=== PATIENT | female | born 1945 | race Caucasian/White ===

== ENCOUNTER 2017-05-03 10:27 | Inpatient (IN) ==
--- NOTE | 2017-05-03 10:54 | Emergency Department Note ---
Disposition Clinical Impression: Shortness of breath Disposition: Still a Patient Condition: Fair Referrals: Teo Kim MD [Primary Care Provider] - Forms: ED Satisfaction Letter Time of Disposition: 10:54 SOB HPI - General Chief Complaint: ED Shortness of Breath/Dyspnea Stated Complaint: THOMAS Time Seen by Provider: 05/03/17 10:50 Source: patient, EMS Limitations: no limitations - History of Present Illness Nontoxic appearing 71-year-old female presents for evaluation of shortness of breath and a productive cough that began one week ago. The patient states the symptoms became acutely more severe just prior to her arrival. She complains of a cough that is productive of a yellow sputum. She denies any fever, chills , nausea, vomiting, diarrhea, abdominal pain, chest pain, or hemoptysis. She denies any diaphoresis. Pt Subjective Complaint: shortness of breath, cough Onset (ago): week(s) (One week) Severity: moderate Consistency/Duration: gradually worsening Improves with: nothing Worsens with: nothing Known history of: congestive heart failure Associated symptoms: Reports: cough, sputum production. Denies: chest pain, pain with inspiration, fever, wheezing, orthopnea, lower extremity pain, palpitations, hemoptysis, nausea/vomiting, abdominal pain Treatment prior to arrival: none Cough present: Yes Sputum production: Yes Sputum Amount: Small Sputum Color: Yellow - Related Data Home Medications Medication Instructions Recorded Confirmed Atorvastatin [Lipitor] 10 mg PO HS 06/16/15 01/25/16 Carvedilol Phosphate [Coreg Cr] 20 mg PO DAILY 06/16/15 01/25/16 Clopidogrel [Plavix] 75 mg PO DAILY 06/16/15 01/25/16 Famotidine [Pepcid] 40 mg PO BID 06/16/15 01/25/16 Hydrocodone/Acetaminophen [[place] 1 tab PO Q4-6H PRN 06/16/15 01/25/16 10-325 Tablet] Previous Rx's Medication Instructions Recorded Aspirin 81 mg PO DAILY #30 tab.chew 01/27/16 Budesonide/Formoterol 160/4.5 2 puff IH BIDR #1 inhaler 01/27/16 [Symbicort 160/4.5] Furosemide [Lasix] 20 mg PO DAILY #30 tablet 01/27/16 Lisinopril [Zestril] 2.5 mg PO DAILY #15 tablet 01/27/16 Nitroglycerin 0.4 mg SL Q5MIN PRN #20 tab.subl 01/27/16 Allergies Allergy/AdvReac Type Severity Reaction Status Date / Time No Known Drug Allergies Allergy See Verified 06/16/15 16:10 Comments All systems ED: reviewed and negative except as stated. Constitutional: Denies: fever, chills, weakness, weight change Eyes: Denies: eye pain, eye discharge, vision change ENT ED: Denies: ear pain, throat pain, dental pain, hearing loss, epistaxis, congestion, dysphagia Cardiovascular: Denies: chest pain, palpitations, dyspnea on exertion, edema, syncope Respiratory: Reports: as per HPI, cough, dyspnea, sputum production. Denies: wheezes, hemoptysis, stridor Gastrointestinal: Denies: abdominal pain, nausea, vomiting, diarrhea, constipation, hematemesis, melena, hematochezia Genitourinary: Denies: dysuria, frequency, hematuria, discharge Musculoskeletal: Denies: back pain, neck pain, arthralgia, myalgia Integumentary: Denies: rash, abrasion, lesions Neurological: Denies: headache, weakness, numbness, paresthesias, confusion, abnormal gait, vertigo Psychiatric: Denies: anxiety, depression, suicidal thoughts, homicidal thoughts , auditory hallucinations, visual hallucinations Endocrine: Denies: fatigue Hematological/Lymphatic: Denies: easy bleeding, easy bruising Allergic/Immunologic: Denies: facial swelling, urticaria Past Medical History - Past Medical History Attestation: Yes The following information was validated with the patient. Source: patient, nursing notes reviewed Medical history: Reports: cardiomyopathy, CHF, coronary artery disease, hyperlipidemia, hypertension, myocardial infarction Surgical history: Reports: appendectomy, carotid endarterectomy, cholecystectomy , coronary bypass (CABG), hysterectomy Psychiatric history: Reports: no psych history CHANNEL INSTALLER history: Reports: no CHANNEL INSTALLER history - Social History Smoking Status: Current every day smoker Smokeless Tobacco Status: No Alcohol use: Reports: none Drug use: Reports: none Physical Exam - General Limitations: no limitations General appearance: alert - Head Head exam: atraumatic, normocephalic, normal inspection - Eye Eye exam: Present: normal appearance, PERRL, EOMI. Absent: nystagmus - ENT ENT exam: mucous membranes moist - Neck Neck exam: Present: normal inspection, full ROM, trachea midline - Chest Chest inspection: Present: normal inspection, symmetric chest wall rise - Respiratory Respiratory exam: Present: normal lung sounds bilaterally. Absent: respiratory distress, wheezes, stridor, accessory muscle use, prolonged expiratory phase - Cardiovascular Cardiovascular exam: Present: regular rate, normal rhythm, normal heart sounds - Abdominal Exam Abdominal exam: Present: soft, Non-Tender, normal bowel sounds - Extremities Exam Extremities exam: Present: normal inspection, full ROM. Absent: tenderness, pedal edema - Neurological Exam Neurological exam: Present: alert, oriented X3 - Psychiatric Psychiatric exam: Present: normal affect, normal mood - Skin Skin exam: Present: warm, dry, intact, normal color Course Vital Signs Temperature 97.1 F L 05/03/17 10:32 Pulse Rate 104 05/03/17 10:32 Respiratory Rate 20 05/03/17 10:32 Blood Pressure 152/77 05/03/17 10:32 O2 Sat by Pulse Oximetry 96 05/03/17 10:32 Temperature 97.1 F L 05/03/17 10:32 Pulse Rate 104 05/03/17 10:32 Respiratory Rate 20 05/03/17 10:32 Blood Pressure 152/77 05/03/17 10:32 O2 Sat by Pulse Oximetry 96 05/03/17 10:32 Oxygen Delivery Oxygen Delivery Room Air Shortness of Breath/Dyspnea - Medical Records Medical records reviewed: Yes I reviewed the patient's medical records. Tori - Tori Situation: Demographics, MOA Background: Presenting Complaint, Relevant PMH, Meds, & Allergies Assessment: Vital Signs, Course and respsone to treatment, Exam Concerns, Patient/Family Expectation, Pertinant Lab Results, Outstanding Labs Recommendation: Barrier(s) to disposition, Recommendation based on pending studies, treatments, or consults SMarvin Report Given to: Dr. Ronald Valle Repor Time: 11:00
[2017-05-03] MEDS ORDERED: 0.9 % Sodium Chloride 500 ML IVC ONE (11:05)
[2017-05-03] MEDS ORDERED: Ipratropium/Albuterol Neb 3 ML IH ONE (11:09)
--- NOTE | 2017-05-03 11:14 | Emergency Department Note ---
START Narrative - START START: I examined this patient and my medical decision-making was reviewed with the STEAMFITTER SUPERVISOR/PA/Advanced Practice Nurse/Resident Physician. I agree with the documented findings, disposition and treatment plan as described except to the extent set forth below. ED attending note: Patient seen with emergency medicine resident Dr. ESCOBAR. We independently evaluated the patient. We independently had [id number] contact with the patient. Please see a copy of his note for details of the history and physical, evaluation, management and disposition of this emergency Department patient. Briefly: A 71-year-old female signed out at 11 AM by Elbert Davison nurse practitioner just did not start note on her. Patient is elderly and ill in appearance but nontoxic [place] tachycardic at rest but afebrile with good blood pressure. Patient having coughing with sputum loss of appetite for several days. We will look for sources of infection including UTI and pneumonia. Patient given IV fluids screening labs chest x-ray troponin lactate among others. Providing 30 minutes critical care service for this patient. Admission anticipated but disposition pending.
[2017-05-03 11:26] LABS: Basophils % 0.2 %; Eosinophils % 0.1 %; Hematocrit 31.8 % (35.3-44.9); Hemoglobin 9.9 g/dL (11.5-15.4); Immature Granulocytes % 0.4 % (0-4); Immature Platelets 4.3 % (1.1-6.1); Lymphocytes # 0.9 K/mcL (0.6-4.6); Mean Corpuscular HGB Conc 31.1 g/dL (31.6-35.5); Mean Corpuscular Hemoglobin 29.8 pg (28.0-33.3); Mean Corpuscular Volume 95.8 fL (83.0-100.0); Mean Platelet Volume 10.3 fL (9.4-12.4); Monocytes # 0.7 K/mcL (0.0-1.3); Monocytes % 7.1 %; Neutrophils # 8.6 K/mcL (1.6-8.9); Platelet Count 366 K/mcL (140-400); Red Blood Count 3.32 M/mcL (3.82-4.97); Red Cell Distribution Width 17.1 % (11.5-14.5); Segmented Neutrophils % 83.2 %
[2017-05-03 11:37] LABS: BUN/Creatinine Ratio 19 (6-26); Blood Urea Nitrogen 16 mg/dL (7-20); Calcium 9.7 mg/dL (8.6-10.8); Carbon Dioxide 23 mEq/L (19-29); Chloride 105 mEq/L (98-109); Glucose 123 mg/dL (70-99); Osmolality,Calculated 293 (280-300); Potassium 3.8 mEq/L (3.5-4.5); Sodium 140 mEq/L (136-145); eGFR For African Americans > 60 (> 60); eGFR For Non-African Americans > 60 (> 60)
--- NOTE | 2017-05-03 11:38 | Emergency Department Note ---
Disposition Clinical Impression: Shortness of breath CHF (congestive heart failure) Qualifiers: Congestive heart failure type: diastolic Congestive heart failure chronicity: chronic Qualified Code(s): I50.32 - Chronic diastolic (congestive) heart failure Disposition: Admitted As Inpatient Condition: Fair SOB HPI - General Chief Complaint: ED Shortness of Breath/Dyspnea Stated Complaint: THOMAS Time Seen by Provider: 05/03/17 10:50 Source: patient, EMS Limitations: no limitations Nursing Notes Reviewed: Yes Vital Signs Reviewed: Yes - History of Present Illness Patient received in signout at 11 AM from the nurse practitioner. Patient presenting with a one-week history of gradually increasing shortness of breath, fatigue, decreased appetite, cough with productive yellow sputum and generalized malaise. States she has a history of CHF, but this feels different. It is not on oxygen at home. No chest discomfort, abdominal pain, nausea, vomiting, diarrhea. No pain or swelling in her legs. No history of DVT or PE. No history of malignancy. Does have a history of triple bypass in early and is on aspirin daily. No headaches, changes in vision. No known fever. No recent admissions. Severity: moderate Improves with: nothing Worsens with: nothing Associated symptoms: Reports: cough, sputum production. Denies: chest pain, pain with inspiration, fever, wheezing, orthopnea, lower extremity pain, palpitations, hemoptysis, nausea/vomiting, abdominal pain Treatment prior to arrival: none - Related Data Home Medications Medication Instructions Recorded Confirmed Atorvastatin [Lipitor] 10 mg PO HS 06/16/15 05/03/17 Carvedilol Phosphate [Coreg Cr] 20 mg PO DAILY 06/16/15 05/03/17 Famotidine [Pepcid] 40 mg PO BID 06/16/15 05/03/17 Hydrocodone/Acetaminophen [[place] 1 tab PO Q4-6H PRN 06/16/15 05/03/17 10-325 Tablet] Lisinopril [Zestril] 5 mg PO DAILY 05/03/17 05/03/17 Previous Rx's Medication Instructions Recorded Aspirin 81 mg PO DAILY #30 tab.chew 01/27/16 Budesonide/Formoterol 160/4.5 2 puff IH BIDR #1 inhaler 01/27/16 [Symbicort 160/4.5] Furosemide [Lasix] 20 mg PO DAILY #30 tablet 01/27/16 Nitroglycerin 0.4 mg SL Q5MIN PRN #20 tab.subl 01/27/16 Allergies Allergy/AdvReac Type Severity Reaction Status Date / Time No Known Drug Allergies Allergy See Verified 06/16/15 16:10 Comments Constitutional: Denies: fever, chills, weakness, weight change Eyes: Denies: eye pain, eye discharge, vision change ENT ED: Denies: ear pain, throat pain, dental pain, hearing loss, epistaxis, congestion, dysphagia Cardiovascular: Denies: chest pain, palpitations, dyspnea on exertion, edema, syncope Respiratory: Reports: as per HPI, cough, dyspnea, sputum production. Denies: wheezes, hemoptysis, stridor Gastrointestinal: Denies: abdominal pain, nausea, vomiting, diarrhea, constipation, hematemesis, melena, hematochezia Genitourinary: Denies: dysuria, frequency, hematuria, discharge Musculoskeletal: Denies: back pain, neck pain, arthralgia, myalgia Integumentary: Denies: rash, abrasion, lesions Neurological: Denies: headache, weakness, numbness, paresthesias, confusion, abnormal gait, vertigo Psychiatric: Denies: anxiety, depression, suicidal thoughts, homicidal thoughts , auditory hallucinations, visual hallucinations Endocrine: Denies: fatigue Hematological/Lymphatic: Denies: easy bleeding, easy bruising Allergic/Immunologic: Denies: facial swelling, urticaria Past Medical History - Past Medical History Attestation: Yes The following information was validated with the patient. Source: patient Medical history: Reports: cardiomyopathy, CHF, coronary artery disease, hyperlipidemia, hypertension, myocardial infarction Surgical history: Reports: appendectomy, carotid endarterectomy, cholecystectomy , coronary bypass (CABG), hysterectomy Psychiatric history: Reports: no psych history DOOR ATTENDANT history: Reports: no DOOR ATTENDANT history - Social History Smoking Status: Current every day smoker Smokeless Tobacco Status: No Alcohol use: Reports: none Drug use: Reports: none Physical Exam - General Limitations: no limitations General appearance: alert, in no apparent distress - Head Head exam: atraumatic, normocephalic, normal inspection - Eye Eye exam: Present: PERRL, other (pale) - ENT ENT exam: mucous membranes dry - Neck Neck exam: Present: normal inspection, full ROM, trachea midline - Chest Chest inspection: Present: normal inspection, symmetric chest wall rise - Respiratory Respiratory exam: Present: wheezes. Absent: respiratory distress - Cardiovascular Cardiovascular exam: Present: tachycardia, normal heart sounds - Abdominal Exam Abdominal exam: Present: soft, Non-Tender. Absent: guarding, rebound - Extremities Exam Extremities exam: Present: normal inspection, full ROM. Absent: tenderness, pedal edema - Neurological Exam Neurological exam: Present: alert, oriented X3 - Psychiatric Psychiatric exam: Present: normal affect, normal mood - Skin Skin exam: Present: warm, dry, intact, pallor Course Course Narrative: Patient presenting with shortness of breath. Concern over CHF versus pneumonia. We will get labs and likely admit - Reevaluation(s) Reevaluation #1: Patient still not feeling better after breathing treatment. D-dimer is elevated as is BNP, however, chronic pulmonary vascular congestion not accounting for her dyspnea. Will CTA chest. No evidence of PE but does have some peribronchial thickening. We will start on antibiotics and admit to the hospitalist service Vital Signs Temperature 97.1 F L 05/03/17 10:32 Pulse Rate 104 05/03/17 10:32 Respiratory Rate 20 05/03/17 10:32 Blood Pressure 152/77 05/03/17 10:32 O2 Sat by Pulse Oximetry 96 05/03/17 10:32 Temperature 97.6 F 05/03/17 16:31 Pulse Rate 103 05/03/17 16:31 Respiratory Rate 15 05/03/17 16:31 Blood Pressure 140/62 05/03/17 16:31 O2 Sat by Pulse Oximetry 92 05/03/17 16:31 Oxygen Delivery Oxygen Delivery Nasal Cannula Shortness of Breath/Dyspnea - Medical Records Medical records reviewed: Yes I reviewed the patient's medical records. - Lab Data Lab results reviewed: Yes I reviewed the patient's lab results. Result diagrams: 05/03/17 11:19 05/03/17 11:19 Lab Results 05/03/17 05/03/17 05/03/17 Range/Units 11:19 11:19 11:19 WBC 10.3 (4.3-11.1) K/mcL RBC 3.32 L (3.82-4.97) M/mcL Hgb 9.9 L (11.5-15.4) g/dL Hct 31.8 L (35.3-44.9) % MCV 95.8 (83.0-100.0) fL MCH 29.8 (28.0-33.3) pg MCHC 31.1 L (31.6-35.5) g/dL RDW 17.1 H (11.5-14.5) % Plt Count 366 (140-400) K/mcL MPV 10.3 (9.4-12.4) fL Immature Gran % 0.4 (0-4) % Seg Neutrophils % 83.2 % Lymphocytes % 9.0 % Monocytes % 7.1 % Eosinophils % 0.1 % Basophils % 0.2 % Neutrophils # 8.6 (1.6-8.9) K/mcL Lymphocytes # 0.9 (0.6-4.6) K/mcL Monocytes # 0.7 (0.0-1.3) K/mcL Eosinophils # 0.0 (0.0-0.6) K/mcL Basophils # 0.0 (0.0-0.2) K/mcL Immature Plt Fraction 4.3 (1.1-6.1) % D-Dimer (0-500) ng/mLFEU Sodium 140 (136-145) mEq/L Potassium 3.8 (3.5-4.5) mEq/L Chloride 105 (98-109) mEq/L Carbon Dioxide 23 (19-29) mEq/L BUN 16 (7-20) mg/dL Creatinine 0.86 (0.57-1.11) mg/dL Est GFR ( Amer) > 60 (> 60) Est GFR (Non-Af Amer) > 60 (> 60) BUN/Creatinine Ratio 19 (6-26) Glucose 123 H (70-99) mg/dL Calculated Osmolality 293 (280-300) Lactic Acid 1.4 (0.5-2.2) mmol/L Calcium 9.7 (8.6-10.8) mg/dL Troponin I (0-0.03) ng/mL B-Natriuretic Peptide (0-100) pg/mL Urine Color (Yellow) Urine Clarity (Clear) Urine pH (5.0-8.0) pH Units Ur Specific [place] (1.010-1.025) Urine Protein (Neg-Trace) mg/dL Urine Glucose (UA) (Normal) mg/dL Urine Ketones (Negative) mg/dL Urine Blood (Negative) Urine Nitrite (Negative) Urine Bilirubin (Negative) Urine Urobilinogen (Normal) mg/dL Ur Leukocyte Esterase (Negative) Urine Microscopic RBC (0-3) per hpf Urine Microscopic WBC (0-3) per hpf Ur Squamous Epith Cells (None-Few) per lpf Urine Bacteria (None-Few) per hpf Ur Culture Indicated? (NO) 05/03/17 05/03/17 05/03/17 Range/Units 11:19 11:19 11:19 WBC (4.3-11.1) K/mcL RBC (3.82-4.97) M/mcL Hgb (11.5-15.4) g/dL Hct (35.3-44.9) % MCV (83.0-100.0) fL MCH (28.0-33.3) pg MCHC (31.6-35.5) g/dL RDW (11.5-14.5) % Plt Count (140-400) K/mcL MPV (9.4-12.4) fL Immature Gran % (0-4) % Seg Neutrophils % % Lymphocytes % % Monocytes % % Eosinophils % % Basophils % % Neutrophils # (1.6-8.9) K/mcL Lymphocytes # (0.6-4.6) K/mcL Monocytes # (0.0-1.3) K/mcL Eosinophils # (0.0-0.6) K/mcL Basophils # (0.0-0.2) K/mcL Immature Plt Fraction (1.1-6.1) % D-Dimer 1158 H (0-500) ng/mLFEU Sodium (136-145) mEq/L Potassium (3.5-4.5) mEq/L Chloride (98-109) mEq/L Carbon Dioxide (19-29) mEq/L BUN (7-20) mg/dL Creatinine (0.57-1.11) mg/dL Est GFR ( Amer) (> 60) Est GFR (Non-Af Amer) (> 60) BUN/Creatinine Ratio (6-26) Glucose (70-99) mg/dL Calculated Osmolality (280-300) Lactic Acid (0.5-2.2) mmol/L Calcium (8.6-10.8) mg/dL Troponin I 0.02 (0-0.03) ng/mL B-Natriuretic Peptide 2275 H (0-100) pg/mL Urine Color (Yellow) Urine Clarity (Clear) Urine pH (5.0-8.0) pH Units Ur Specific [place] (1.010-1.025) Urine Protein (Neg-Trace) mg/dL Urine Glucose (UA) (Normal) mg/dL Urine Ketones (Negative) mg/dL Urine Blood (Negative) Urine Nitrite (Negative) Urine Bilirubin (Negative) Urine Urobilinogen (Normal) mg/dL Ur Leukocyte Esterase (Negative) Urine Microscopic RBC (0-3) per hpf Urine Microscopic WBC (0-3) per hpf Ur Squamous Epith Cells (None-Few) per lpf Urine Bacteria (None-Few) per hpf Ur Culture Indicated? (NO) 05/03/17 Range/Units 13:28 WBC (4.3-11.1) K/mcL RBC (3.82-4.97) M/mcL Hgb (11.5-15.4) g/dL Hct (35.3-44.9) % MCV (83.0-100.0) fL MCH (28.0-33.3) pg MCHC (31.6-35.5) g/dL RDW (11.5-14.5) % Plt Count (140-400) K/mcL MPV (9.4-12.4) fL Immature Gran % (0-4) % Seg Neutrophils % % Lymphocytes % % Monocytes % % Eosinophils % % Basophils % % Neutrophils # (1.6-8.9) K/mcL Lymphocytes # (0.6-4.6) K/mcL Monocytes # (0.0-1.3) K/mcL Eosinophils # (0.0-0.6) K/mcL Basophils # (0.0-0.2) K/mcL Immature Plt Fraction (1.1-6.1) % D-Dimer (0-500) ng/mLFEU Sodium (136-145) mEq/L Potassium (3.5-4.5) mEq/L Chloride (98-109) mEq/L Carbon Dioxide (19-29) mEq/L BUN (7-20) mg/dL Creatinine (0.57-1.11) mg/dL Est GFR ( Amer) (> 60) Est GFR (Non-Af Amer) (> 60) BUN/Creatinine Ratio (6-26) Glucose (70-99) mg/dL Calculated Osmolality (280-300) Lactic Acid (0.5-2.2) mmol/L Calcium (8.6-10.8) mg/dL Troponin I (0-0.03) ng/mL B-Natriuretic Peptide (0-100) pg/mL Urine Color Yellow (Yellow) Urine Clarity Cloudy A (Clear) Urine pH 6.5 (5.0-8.0) pH Units Ur Specific [place] > 1.030 H (1.010-1.025) Urine Protein Trace (Neg-Trace) mg/dL Urine Glucose (UA) Normal (Normal) mg/dL Urine Ketones Negative (Negative) mg/dL Urine Blood Trace H (Negative) Urine Nitrite Positive A (Negative) Urine Bilirubin Negative (Negative) Urine Urobilinogen Normal (Normal) mg/dL Ur Leukocyte Esterase Small H (Negative) Urine Microscopic RBC 0-3 (0-3) per hpf Urine Microscopic WBC 15-30 H (0-3) per hpf Ur Squamous Epith Cells Few (None-Few) per lpf Urine Bacteria Many H (None-Few) per hpf Ur Culture Indicated? YES A (NO) - Radiology Data Radiology results reviewed: Yes I reviewed the patient's radiology results. - EKG Data EKG attestation: Yes I reviewed and interpreted this EKG. EKG results narrative: Sinus rhythm with occasional PVC, rate 90, MI interval 142, QRS 117, QTC 425, no acute ischemic changes
[2017-05-03 13:56] LABS: Bilirubin,Urine Negative (Negative); Blood,Urine Trace (Negative); Clarity,Urine Cloudy (Clear); Color,Urine Yellow (Yellow); Glucose,Urine (UA) Normal (Normal); Ketones,Urine Negative (Negative); Leukocyte Esterase,Urine Small (Negative); Nitrite,Urine Positive (Negative); PH,Urine 6.5 pH Units (5.0-8.0); Protein,Urine Trace mg/dL (Neg-Trace); Specific Gravity,Urine > 1.030 (1.010-1.025); Urobilinogen,Urine Normal (Normal)
[2017-05-03 14:09] LABS: Bacteria,Urine Many per hpf (None-Few); RBC,Urine 0-3 per hpf (0-3); Squamous Epithelial Cell,Urine Few per lpf (None-Few); WBC,Urine 15-30 per hpf (0-3)
[2017-05-03] MEDS ORDERED: *HR* HYDROmorphone (PF) 1 MG/ML SYRINGE IVP ONE (14:47)
[2017-05-03] MEDS ORDERED: Azithromycin 500 MG in D5% in Water 250 ML IVPB ONE (16:12)
[2017-05-03] MEDS ORDERED: Acetaminophen 325 MG TABLET PO PRN (16:33)
[2017-05-03] MEDS ORDERED: Naloxone 0.4 MG/ML INJ IVP PRN (16:33)
[2017-05-03] MEDS ORDERED: Nitroglycerin 0.4 MG TAB.SUBL SL PRN (16:36)
[2017-05-03] MEDS: 0.9 % Sodium Chloride 1,000 ML IVC SCH (18:09)
--- NOTE | 2017-05-03 18:09 | Electrocardiograph Report ---
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
--- NOTE | 2017-05-03 18:12 | Internal Med History&Physical ---
Date of Encounter: 05/03/17 Time of Encounter: 18:00 Assessment and Plan (1) COPD exacerbation Current visit: Yes Status: Acute Presented with productive cough and SOB. CT chest showed early pneumonitis and bronchiolitis. IVPB ceftriaxone and Azithromycin Duoneb treatments QID albuterol nebulizer Q2hr PRN budesonide/formotorol BID Prednisone 40mg daily Mucinex BID titrate oxygen to maintain saturation. (2) Pneumonitis Current visit: Yes Status: Acute Presented with productive cough and SOB. CT chest showed early pneumonitis and bronchiolitis. IVPB ceftriaxone and Azithromycin Duoneb treatments QID albuterol nebulizer Q2hr PRN budesonide/formotorol BID Mucinex BID titrate oxygen to maintain saturation (3) CHF (congestive heart failure) Current visit: Yes Status: Chronic Patient with history of diastolic CHF. CXR shows chronic slight pulmonary vascular congestion. BNP elevated to 2275. Patient with poor oral intake recently and appears dry on exam. Giving gentle fluids 0.9NS at 80mL/hr. Continue home dose of PO lasix. Qualifiers: Congestive heart failure type: diastolic Congestive heart failure chronicity: chronic Qualified Code(s): I50.32 - Chronic diastolic (congestive ) heart failure (4) HLD (hyperlipidemia) Current visit: Yes Status: Chronic continue home dose of statin Qualifiers: Hyperlipidemia type: unspecified Qualified Code(s): E78.5 - Hyperlipidemia , unspecified (5) HTN (hypertension) Current visit: Yes Status: Chronic Continue home dose of coreg and lisinopril. Qualifiers: Hypertension type: essential hypertension Qualified Code(s): I10 - Essential (primary) hypertension (6) Tobacco abuse Current visit: No Status: Chronic Patient continues to smoke 1/2 PPD. Encouraged smoking cessation. Nicotine patch and smoking cessation education ordered. (7) DVT prophylaxis Current visit: Yes Status: Acute anti-embolic stockings heparin SQ TID Internal Medicine - H&P: HPI Chief complaint: shortness of breath Admitted From: Emergency Dept Plans for Post Hospital Care: Home History of present illness: Ms. Nuñez is a 71 year old female with hypertension, hyperlipidemia, chronic back pain, coronary artery disease status post CABG, congestive heart failure, and COPD presented to the emergency department today with complaints of one-week history of productive cough, shortness of breath, and decreased appetite. She reports she has been feeling progressively worse throughout the week, with generalized malaise. She denies any headache, lightheadedness, chest pain, palpitations, nausea, vomiting, diarrhea, abdominal pain. She denies any fever or chills. Evaluation emergency department included a chest x- ray which showed slight chronic pulmonary vascular congestion and mild emphysematous changes. CTA of the chest showed no evidence of pulmonary embolism and early pneumonitis and bronchiolitis with reactive right hilar lymph valery enlargement and small bilateral pleural effusions. Troponin was normal at 0.02, d-dimer was elevated at 1158, BNP was elevated at 2275. EKG showed sinus rhythm with occasional PVC heart rate of 90 with no ischemic changes. Her blood cell count was normal at 10.3. Urinalysis was concerning for UTI. On exam, patient alert and oriented, in no acute distress. Heart had regular rate and rhythm. Lungs had bilateral rhonchi and were diminished in the bases. No peripheral edema, dry mucous membranes. Past Med Surg Social Fam HX - Past Medical History Medical history: cardiomyopathy, CHF, coronary artery disease, hyperlipidemia, hypertension, myocardial infarction Psychiatric history: no psych history - Past Surgical History Surgical History: appendectomy, carotid endarterectomy, cholecystectomy, coronary bypass (CABG), hysterectomy - Social History Smoking Status: Current every day smoker Smokeless Tobacco Status: No Alcohol use: none Drug use: none - Family History Father Hx Family Cardiac Disorders: Yes ([place]) Hx Family Respiratory Disorders: Yes Hx Family Cancer: No Hx Family GI Disorders: No Hx Family Endocrine Disorder: No Hx Family Neuromuscular Disorders: No Hx Family Neurologic Disorders: No Hx Family HEENT Disorders: No Hx Family Autoimmune Disorders: No Mother Hx Family Cardiac Disorders: Yes (CVA) Hx Family Respiratory Disorders: Yes Hx Family Cancer: No Hx Family GI Disorders: No Hx Family Endocrine Disorder: No Hx Family Neuromuscular Disorders: No Hx Family Neurologic Disorders: No Hx Family HEENT Disorders: No Hx Family Autoimmune Disorders: No Internal Medicine - H&P: Meds Atorvastatin [Lipitor] 10 mg PO HS 06/16/15 [History] Carvedilol Phosphate [Coreg Cr] 20 mg PO DAILY 06/16/15 [History] Famotidine [Pepcid] 40 mg PO BID 06/16/15 [History] Hydrocodone/Acetaminophen [Daisy 10-325 Tablet] 1 tab PO Q4-6H PRN 06/16/15 [ History] Aspirin 81 mg PO DAILY #30 tab.chew 01/27/16 [Rx] Budesonide/Formoterol 160/4.5 [Symbicort 160/4.5] 2 puff IH BIDR #1 inhaler 02/05 [Rx] Furosemide [Lasix] 20 mg PO DAILY #30 tablet 01/27/16 [Rx] Nitroglycerin 0.4 mg SL Q5MIN PRN #20 tab.subl 01/27/16 [Rx] Lisinopril [Zestril] 5 mg PO DAILY 05/03/17 [History] 3 Allergy/AdvReac Type Severity Reaction Status Date / Time No Known Drug Allergies Allergy See Verified 06/16/15 16:10 Comments All Systems PM: A 10-system review of systems was performed and is negative for pertinent findings except as documented above in the HPI. - Constitutional Constitutional: malaise, no chills, no fever(s), no night sweats - EENT Eyes: no change in vision, no discharge, no pain, no photophobia Ears: no ear discharge, no ear pain, no tinnitus Nose, mouth and throat: no dysphagia, no nasal discharge, no neck pain, no sore throat - Cardiovascular Cardiovascular ROS IM: no chest pain, no diaphoresis, no dyspnea, no lightheadedness, no palpitations, no syncope - Respiratory Respiratory: cough, dyspnea, excessive phlegm production, no wheezing - Gastrointestinal Gastrointestinal: no abdominal pain, no diarrhea, no hematemesis, no hematochezia, no melena, no nausea, no vomiting - Genitourinary Genitourinary: no change in urinary stream, no dysuria, no flank pain, no hematuria - Musculoskeletal Musculoskeletal ROS IM: no numbness, no tingling - Integumentary Integumentary IM: no rash, no unusual bruising - Neurological Neurological ROS: no confusion, no convulsions, no focal weakness, no numbness, no tingling, no tremor(s) - Hematologic/Lymphatic Hematologic/Lymphatic: no easy bruising - Constitutional Vitals: Temp Pulse Resp BP Pulse Ox 97.6 F 103 15 140/62 92 05/03/17 16:31 05/03/17 16:31 05/03/17 16:31 05/03/17 16:31 05/03/17 16:31 General appearance: Present: A&O X 3, pleasant, no acute distress - Head Head exam: Present: atraumatic, normocephalic - Eye Eye exam: Present: PERRL, conjuntiva pink, sclera anicteric Pupils: Present: PERRL - ENT ENT exam: Present: mucous membranes dry - Neck Neck exam general surgery: Present: supple, trachea midline. Absent: lymphadenopathy - Respiratory Respiratory exam: Present: decreased breath sounds (bilateral bases), rhonchi. Absent: accessory muscle use, rales, wheezes - Cardiovascular Cardiovascular exam: Present: RRR, +S1, +S2. Absent: diastolic murmur, gallop, rubs, systolic murmur - GI/Abdominal GI/Abdominal exam: Present: normal bowel sounds, soft, no peritoneal signs. Absent: distended, tenderness - Extremities Exam Extremities exam: Present: warm, radial pulses palpable and symmetrical. Absent : calf tenderness, cyanotic, pedal edema - Neurological Exam Neurological exam: Present: CN II-XII intact, oriented X3, no focal deficits. Absent: pronater drift, facial droop, speech deficit - Skin Skin exam: Present: dry, intact Internal Med - H&P Results - Labs CBC & Chem 7: 05/03/17 11:19 05/03/17 11:19 Labs: All Lab Results (24 Hours) 05/03/17 05/03/17 05/03/17 Range/Units 11:19 11:19 11:19 WBC 10.3 (4.3-11.1) K/mcL RBC 3.32 L (3.82-4.97) M/mcL Hgb 9.9 L (11.5-15.4) g/dL Hct 31.8 L (35.3-44.9) % MCV 95.8 (83.0-100.0) fL MCH 29.8 (28.0-33.3) pg MCHC 31.1 L (31.6-35.5) g/dL RDW 17.1 H (11.5-14.5) % Plt Count 366 (140-400) K/mcL MPV 10.3 (9.4-12.4) fL Immature Gran % 0.4 (0-4) % Seg Neutrophils % 83.2 % Lymphocytes % 9.0 % Monocytes % 7.1 % Eosinophils % 0.1 % Basophils % 0.2 % Neutrophils # 8.6 (1.6-8.9) K/mcL Lymphocytes # 0.9 (0.6-4.6) K/mcL Monocytes # 0.7 (0.0-1.3) K/mcL Eosinophils # 0.0 (0.0-0.6) K/mcL Basophils # 0.0 (0.0-0.2) K/mcL Immature Plt Fraction 4.3 (1.1-6.1) % D-Dimer (0-500) ng/mLFEU Sodium 140 (136-145) mEq/L Potassium 3.8 (3.5-4.5) mEq/L Chloride 105 (98-109) mEq/L Carbon Dioxide 23 (19-29) mEq/L BUN 16 (7-20) mg/dL Creatinine 0.86 (0.57-1.11) mg/dL Est GFR ( Amer) > 60 (> 60) Est GFR (Non-Af Amer) > 60 (> 60) BUN/Creatinine Ratio 19 (6-26) Glucose 123 H (70-99) mg/dL Calculated Osmolality 293 (280-300) Lactic Acid 1.4 (0.5-2.2) mmol/L Calcium 9.7 (8.6-10.8) mg/dL Troponin I (0-0.03) ng/mL B-Natriuretic Peptide (0-100) pg/mL Urine Color (Yellow) Urine Clarity (Clear) Urine pH (5.0-8.0) pH Units Ur Specific Alpine (1.010-1.025) Urine Protein (Neg-Trace) mg/dL Urine Glucose (UA) (Normal) mg/dL Urine Ketones (Negative) mg/dL Urine Blood (Negative) Urine Nitrite (Negative) Urine Bilirubin (Negative) Urine Urobilinogen (Normal) mg/dL Ur Leukocyte Esterase (Negative) Urine Microscopic RBC (0-3) per hpf Urine Microscopic WBC (0-3) per hpf Ur Squamous Epith Cells (None-Few) per lpf Urine Bacteria (None-Few) per hpf Ur Culture Indicated? (NO) 05/03/17 05/03/17 05/03/17 Range/Units 11:19 11:19 11:19 WBC (4.3-11.1) K/mcL RBC (3.82-4.97) M/mcL Hgb (11.5-15.4) g/dL Hct (35.3-44.9) % MCV (83.0-100.0) fL MCH (28.0-33.3) pg MCHC (31.6-35.5) g/dL RDW (11.5-14.5) % Plt Count (140-400) K/mcL MPV (9.4-12.4) fL Immature Gran % (0-4) % Seg Neutrophils % % Lymphocytes % % Monocytes % % Eosinophils % % Basophils % % Neutrophils # (1.6-8.9) K/mcL Lymphocytes # (0.6-4.6) K/mcL Monocytes # (0.0-1.3) K/mcL Eosinophils # (0.0-0.6) K/mcL Basophils # (0.0-0.2) K/mcL Immature Plt Fraction (1.1-6.1) % D-Dimer 1158 H (0-500) ng/mLFEU Sodium (136-145) mEq/L Potassium (3.5-4.5) mEq/L Chloride (98-109) mEq/L Carbon Dioxide (19-29) mEq/L BUN (7-20) mg/dL Creatinine (0.57-1.11) mg/dL Est GFR ( Amer) (> 60) Est GFR (Non-Af Amer) (> 60) BUN/Creatinine Ratio (6-26) Glucose (70-99) mg/dL Calculated Osmolality (280-300) Lactic Acid (0.5-2.2) mmol/L Calcium (8.6-10.8) mg/dL Troponin I 0.02 (0-0.03) ng/mL B-Natriuretic Peptide 2275 H (0-100) pg/mL Urine Color (Yellow) Urine Clarity (Clear) Urine pH (5.0-8.0) pH Units Ur Specific Alpine (1.010-1.025) Urine Protein (Neg-Trace) mg/dL Urine Glucose (UA) (Normal) mg/dL Urine Ketones (Negative) mg/dL Urine Blood (Negative) Urine Nitrite (Negative) Urine Bilirubin (Negative) Urine Urobilinogen (Normal) mg/dL Ur Leukocyte Esterase (Negative) Urine Microscopic RBC (0-3) per hpf Urine Microscopic WBC (0-3) per hpf Ur Squamous Epith Cells (None-Few) per lpf Urine Bacteria (None-Few) per hpf Ur Culture Indicated? (NO) 05/03/17 Range/Units 13:28 WBC (4.3-11.1) K/mcL RBC (3.82-4.97) M/mcL Hgb (11.5-15.4) g/dL Hct (35.3-44.9) % MCV (83.0-100.0) fL MCH (28.0-33.3) pg MCHC (31.6-35.5) g/dL RDW (11.5-14.5) % Plt Count (140-400) K/mcL MPV (9.4-12.4) fL Immature Gran % (0-4) % Seg Neutrophils % % Lymphocytes % % Monocytes % % Eosinophils % % Basophils % % Neutrophils # (1.6-8.9) K/mcL Lymphocytes # (0.6-4.6) K/mcL Monocytes # (0.0-1.3) K/mcL Eosinophils # (0.0-0.6) K/mcL Basophils # (0.0-0.2) K/mcL Immature Plt Fraction (1.1-6.1) % D-Dimer (0-500) ng/mLFEU Sodium (136-145) mEq/L Potassium (3.5-4.5) mEq/L Chloride (98-109) mEq/L Carbon Dioxide (19-29) mEq/L BUN (7-20) mg/dL Creatinine (0.57-1.11) mg/dL Est GFR ( Amer) (> 60) Est GFR (Non-Af Amer) (> 60) BUN/Creatinine Ratio (6-26) Glucose (70-99) mg/dL Calculated Osmolality (280-300) Lactic Acid (0.5-2.2) mmol/L Calcium (8.6-10.8) mg/dL Troponin I (0-0.03) ng/mL B-Natriuretic Peptide (0-100) pg/mL Urine Color Yellow (Yellow) Urine Clarity Cloudy A (Clear) Urine pH 6.5 (5.0-8.0) pH Units Ur Specific Alpine > 1.030 H (1.010-1.025) Urine Protein Trace (Neg-Trace) mg/dL Urine Glucose (UA) Normal (Normal) mg/dL Urine Ketones Negative (Negative) mg/dL Urine Blood Trace H (Negative) Urine Nitrite Positive A (Negative) Urine Bilirubin Negative (Negative) Urine Urobilinogen Normal (Normal) mg/dL Ur Leukocyte Esterase Small H (Negative) Urine Microscopic RBC 0-3 (0-3) per hpf Urine Microscopic WBC 15-30 H (0-3) per hpf Ur Squamous Epith Cells Few (None-Few) per lpf Urine Bacteria Many H (None-Few) per hpf Ur Culture Indicated? YES A (NO) - Diagnostic Studies Chest x-ray Additional comments: Chest X-Ray 05/03/17 10:42 IMPRESSION: Slight chronic pulmonary vascular congestion. Mild emphysematous changes. No significant change from the prior study. D/ / Reid Yanez MD / Reid Yanez MD Interpreting Provider: Reid Yanez MD CT scan - chest Additional comments: Chest CTA 05/03/17 12:14 IMPRESSION: 1. No pulmonary embolism. 2. Peribronchial thickening and scattered mild airspace changes in the right middle lobe and right lower lobe. Pattern suspected to represent bronchiolitis. Early pneumonitis cannot be excluded. 3. Reactive right hilar lymph node enlargement and small pleural effusions bilaterally. D/ / Anthony Sharma MD / Anthony Sharma MD Interpreting Provider: Anthony Sharma MD
[2017-05-03] MEDS: predniSONE 20 MG TABLET PO SCH (18:49)
[2017-05-03] MEDS: Ipratropium/Albuterol Neb 3 ML IH SCH ×2 (19:13→22:06)
[2017-05-03] MEDS: *HR* HYDROcodone/Acet 10/325 mg TABLET PO PRN (20:12)
[2017-05-03] MEDS: Famotidine 20 MG TABLET PO SCH (20:52)
[2017-05-03] MEDS: *HR* Heparin 5,000 UNIT/ML VIAL SQ SCH (20:53)
[2017-05-03] MEDS ORDERED: *HR* Morphine 2 MG/ML SYRINGE IVP ONE (21:38)
[2017-05-03] MEDS: Budesonide/Formoterol 160/4.5 MDI IH SCH (22:06)
[2017-05-04] MEDS: *HR* HYDROcodone/Acet 10/325 mg TABLET PO PRN ×4 (02:51→23:38)
[2017-05-04 03:52] LABS: Hematocrit 25.4 % (35.3-44.9); Immature Granulocytes % 0.4 % (0-4); Lymphocytes # 0.7 K/mcL (0.6-4.6); Lymphocytes % 13.7 %; Mean Corpuscular HGB Conc 31.1 g/dL (31.6-35.5); Mean Corpuscular Hemoglobin 29.7 pg (28.0-33.3); Mean Corpuscular Volume 95.5 fL (83.0-100.0); Mean Platelet Volume 10.6 fL (9.4-12.4); Monocytes # 0.2 K/mcL (0.0-1.3); Neutrophils # 4.5 K/mcL (1.6-8.9); Nucleated Red Blood Cells 0.4 /100 WBC (0); Platelet Count 289 K/mcL (140-400); Red Blood Count 2.66 M/mcL (3.82-4.97); Red Cell Distribution Width 17.2 % (11.5-14.5); Segmented Neutrophils % 82.9 %
[2017-05-04 03:54] LABS: Hemoglobin 7.9 g/dL (11.5-15.4)
[2017-05-04 04:04] LABS: BUN/Creatinine Ratio 20 (6-26); Blood Urea Nitrogen 17 mg/dL (7-20); Calcium 8.4 mg/dL (8.6-10.8); Carbon Dioxide 22 mEq/L (19-29); Chloride 109 mEq/L (98-109); Glucose 122 mg/dL (70-99); Osmolality,Calculated 293 (280-300); Potassium 4.1 mEq/L (3.5-4.5); Sodium 140 mEq/L (136-145); eGFR For African Americans > 60 (> 60); eGFR For Non-African Americans > 60 (> 60)
[2017-05-04] MEDS: Ipratropium/Albuterol Neb 3 ML IH SCH ×4 (04:16→23:13)
[2017-05-04] MEDS: *HR* Heparin 5,000 UNIT/ML VIAL SQ SCH ×2 (06:34→14:44)
[2017-05-04] MEDS: 0.9 % Sodium Chloride 1,000 ML IVC SCH (06:41)
[2017-05-04] MEDS: Famotidine 20 MG TABLET PO SCH ×2 (09:50→20:39)
[2017-05-04] MEDS: predniSONE 20 MG TABLET PO SCH (09:51)
[2017-05-04] MEDS: Aspirin 81 MG TAB.CHEW PO SCH (09:51)
[2017-05-04] MEDS: Lactobacillus 1 EACH CAP.SPRINK PO SCH (09:52)
[2017-05-04] MEDS: Nicotine 14 MG PATCH.TD24 TD SCH (09:54)
[2017-05-04] MEDS: Furosemide 20 MG TABLET PO SCH (09:54)
[2017-05-04] MEDS: Budesonide/Formoterol 160/4.5 MDI IH SCH ×2 (11:19→23:13)
[2017-05-04] MEDS ORDERED: Azithromycin 500 MG in D5% in Water 250 ML IVPB SCH (17:00)
--- NOTE | 2017-05-04 19:15 | Internal Med Progress Note ---
Date of Encounter: 05/04/17 Time of Encounter: 14:40 - Assessment and plan (1) COPD exacerbation Current Visit: Yes Status: Acute Assessment and plan: Acute exacerbation. Patient has productive cough, shortness of breath. CT showed early pneumonitis and acute bronchiolitis. Continue IV antibiotics, DuoNeb treatments scheduled, albuterol every 2 hours as needed, prednisone 40 mg daily, Mucinex twice a day. Patient normally wears 2 L of oxygen at home, titrate to maintain sats greater than 92%. Sputum cultures pending. Lungs are diminished with rhonchi that clear with cough. Patient has been afebrile. (2) Pneumonitis Current Visit: Yes Status: Acute Assessment and plan: Per CT. Plan as above. (3) CHF (congestive heart failure) Current Visit: Yes Status: Acute Assessment and plan: Patient with history of diastolic CHF. Chest x-ray shows chronic slight pulmonary vascular congestion. BNP is elevated 2275. Patient was getting gentle IV fluids at 80 ML's per hour for 1 appeared to be dry, hypovolemic state as well as AK I on CK D. Fluids have been DC'd. Patient will continue home dose of by mouth Lasix. Continue telemetry, O2, daily weights. Qualifiers: Congestive heart failure type: diastolic Congestive heart failure chronicity: chronic Qualified Code(s): I50.32 - Chronic diastolic (congestive ) heart failure (4) Tobacco abuse Current Visit: No Status: Chronic Assessment and plan: Patient continues to smoke. We will continue to encourage smoking cessation. (5) DVT prophylaxis Current Visit: Yes Status: Acute Assessment and plan: Patient is receiving heparin subcutaneous at this time. Will stop due to anemia and reassess. Patient has JADA richardson ordered. (6) Anemia Current Visit: Yes Status: Chronic Assessment and plan: Patient reports chronic anemia of unknown cause. Hemoglobin is 7.9 today. Patient denies any symptoms other than which she is being seen for. She denies increased fatigue. She also has been receiving IV fluids, will continue to monitor in the morning. IV fluids have been stopped Qualifiers: Anemia type: unspecified type Qualified Code(s): D64.9 - Anemia, unspecified - Time Spent With Patient less than 15 minutes - Subjective Interval history: Patient was seen and assessed at 1440 today. She is alert, oriented, pleasant. She states that she does wear 2 L of oxygen at home has needed. She reports a productive cough with white sputum. She also states that she could not go home today because her family is working on becoming providers for her in the home and on her receiving services in the home. I have consulted our social work case manager to assist them or see if they have any needs. - Constitutional Vitals: Temp Pulse Resp BP Pulse Ox 98.8 F 97 16 129/74 97 05/04/17 18:56 05/04/17 18:56 05/04/17 18:56 05/04/17 18:56 05/04/17 18:56 General appearance: Present: cooperative, A&O X 3, pleasant, no acute distress, answers questions appropriately - Head Head exam: Present: atraumatic, normal inspection, normocephalic - Eye Eye exam: Present: conjuntiva pink, sclera anicteric - Neck Neck exam general surgery: Present: supple, trachea midline. Absent: lymphadenopathy - Respiratory Respiratory exam: Present: decreased breath sounds, CTAB, rhonchi. Absent: accessory muscle use, rales, wheezes - Cardiovascular Cardiovascular exam: Present: RRR, +S1, +S2. Absent: diastolic murmur, gallop, rubs, systolic murmur - GI/Abdominal GI/Abdominal exam: Present: normal bowel sounds, soft, no peritoneal signs. Absent: distended, tenderness - Extremities Exam Extremities exam: Present: warm, radial pulses palpable and symmetrical. Absent : calf tenderness, cyanotic, pedal edema - Neurological Exam Neurological exam: Present: oriented X3. Absent: facial droop, speech deficit - Skin Skin exam: Present: dry, intact, normal color, warm. Absent: rash Internal Medicine: Result - Labs CBC & Chem 7: 05/04/17 03:42 05/04/17 03:42 Labs: Short CBC 05/04/17 Range/Units 03:42 WBC 5.4 (4.3-11.1) K/mcL Hgb 7.9 L D (11.5-15.4) g/dL Hct 25.4 L (35.3-44.9) % Plt Count 289 (140-400) K/mcL Neutrophils # 4.5 (1.6-8.9) K/mcL BMP 05/04/17 03:42 Sodium 140 Potassium 4.1 Chloride 109 Carbon Dioxide 22 BUN 17 Creatinine 0.83 Glucose 122 H Calcium 8.4 L - ABG Interpretation ABG results: PT/INR, D-dimer D-Dimer 1158 ng/mLFEU (0-500) H 05/03/17 11:19 - VTE Documentation of Mechanical Device: Graduated compression elastic hosiery Consult Discharge Plan - Plan Referrals: Teo Kim MD [Primary Care Provider] -
[2017-05-04] MEDS ORDERED: *HR* Morphine 2 MG/ML SYRINGE IVP ONE (19:52)
[2017-05-05] MEDS: Ipratropium/Albuterol Neb 3 ML IH SCH ×4 (04:03→23:52)
[2017-05-05] MEDS: *HR* HYDROcodone/Acet 10/325 mg TABLET PO PRN ×3 (05:22→18:12)
[2017-05-05 05:29] LABS: Basophils % 0.1 %; Hemoglobin 7.3 g/dL (11.5-15.4); Immature Granulocytes % 0.4 % (0-4); Lymphocytes # 1.2 K/mcL (0.6-4.6); Lymphocytes % 17.2 %; Mean Corpuscular HGB Conc 31.7 g/dL (31.6-35.5); Mean Corpuscular Hemoglobin 30.4 pg (28.0-33.3); Mean Corpuscular Volume 95.8 fL (83.0-100.0); Mean Platelet Volume 11.4 fL (9.4-12.4); Monocytes # 0.8 K/mcL (0.0-1.3); Nucleated Red Blood Cells 1.4 /100 WBC (0); Platelet Count 292 K/mcL (140-400); Red Cell Distribution Width 17.6 % (11.5-14.5); Segmented Neutrophils % 71.3 %
[2017-05-05 05:48] LABS: BUN/Creatinine Ratio 29 (6-26); Blood Urea Nitrogen 27 mg/dL (7-20); Calcium 8.2 mg/dL (8.6-10.8); Carbon Dioxide 21 mEq/L (19-29); Chloride 111 mEq/L (98-109); Glucose 103 mg/dL (70-99); Osmolality,Calculated 295 (280-300); Potassium 4.1 mEq/L (3.5-4.5); Sodium 140 mEq/L (136-145); eGFR For African Americans > 60 (> 60); eGFR For Non-African Americans 59 (> 60)
[2017-05-05] MEDS: Nicotine 14 MG PATCH.TD24 TD SCH (09:24)
[2017-05-05] MEDS: Famotidine 20 MG TABLET PO SCH ×2 (09:25→21:35)
[2017-05-05] MEDS: Lactobacillus 1 EACH CAP.SPRINK PO SCH (09:25)
[2017-05-05] MEDS: predniSONE 20 MG TABLET PO SCH (09:25)
[2017-05-05] MEDS: Aspirin 81 MG TAB.CHEW PO SCH (09:25)
[2017-05-05] MEDS: Furosemide 20 MG TABLET PO SCH (09:27)
--- NOTE | 2017-05-05 10:54 | Internal Med Progress Note ---
Date of Encounter: 05/05/17 Time of Encounter: 08:45 - Assessment and plan (1) COPD exacerbation Current Visit: Yes Status: Acute Assessment and plan: Lungs are clear and diminshed throughout, no ronchi, wheezing, rales, or respiratory distress. Pt is not requiring supplemental 02. Continue 02 prn, nebulizer treatments scheduled and prn Prednisone 40mg po daily Mucinex BID Changing antibiotic to Levaquin to cover UTI and pneumonitis (2) Pneumonitis Current Visit: Yes Status: Acute Assessment and plan: Per CT. Plan as above. (3) CHF (congestive heart failure) Current Visit: Yes Status: Acute Assessment and plan: Patient with history of diastolic CHF. Chest x-ray shows chronic slight pulmonary vascular congestion. BNP is elevated 2275. Patient received gentle IV fluids at 80 ML's per hour for 1 appeared to be dry, hypovolemic state as well as AK I on CK D. Fluids have been DC'd. Pt appears to be euvolemic. Continue home dose of by mouth Lasix. Continue telemetry, O2, daily weights. Qualifiers: Congestive heart failure type: diastolic Congestive heart failure chronicity: chronic Qualified Code(s): I50.32 - Chronic diastolic (congestive ) heart failure (4) Tobacco abuse Current Visit: No Status: Chronic Assessment and plan: Patient continues to smoke. We will continue to encourage smoking cessation prior to discharge. (5) Anemia Current Visit: Yes Status: Chronic Assessment and plan: Patient reports chronic anemia of unknown cause. Hemoglobin is 7.3 today. Patient denies any symptoms other than which she is being seen for. She denies increased fatigue, SOB, dizziness, or BLUM. Pt reports that last transfusion was about 3 years ago. she reports symptoms of fatigue and SOB with prior anemia prior to transfusion. Urine on admission had trace of blood, stool occult blood is pending collection. Iron studies, Folate, B12 ordered. Transfuse 1 unit PRBCs and monitor H and H after. Qualifiers: Anemia type: unspecified type Qualified Code(s): D64.9 - Anemia, unspecified (6) DVT prophylaxis Current Visit: Yes Status: Acute Assessment and plan: Patient has JADA hose ordered, pt is ambulatory in the room. Pharmacologic prophylaxis d/c'd due to anemia. - Time Spent With Patient less than 15 minutes - Subjective Interval history: Pt was seen and assessed at 0845. Pt states that she feels well and much better than on admission. She denies SOB, BLUM, chest pain, or dizziness. Pt states that she is chronically anemic and feels no differently than normal. - Constitutional Vitals: Temp Pulse Resp BP Pulse Ox 98.4 F 73 15 116/53 94 05/05/17 06:51 05/05/17 06:51 05/05/17 06:51 05/05/17 06:51 05/05/17 09:28 General appearance: Present: cooperative, A&O X 3, pleasant, no acute distress, answers questions appropriately - Head Head exam: Present: atraumatic, normal inspection, normocephalic - Eye Eye exam: Present: normal appearance, conjuntiva pink, sclera anicteric - Neck Neck exam general surgery: Present: supple, trachea midline. Absent: lymphadenopathy, tenderness - Respiratory Respiratory exam: Present: decreased breath sounds, CTAB. Absent: accessory muscle use, chest wall tenderness, rales, rhonchi, wheezes - Cardiovascular Cardiovascular exam: Present: RRR, +S1, +S2. Absent: diastolic murmur, gallop, rubs, systolic murmur - GI/Abdominal GI/Abdominal exam: Present: normal bowel sounds, soft, no peritoneal signs. Absent: distended, hepatomegaly, tenderness - Extremities Exam Extremities exam: Present: normal inspection, warm, radial pulses palpable and symmetrical. Absent: calf tenderness, cyanotic, pedal edema - Neurological Exam Neurological exam: Present: alert, oriented X3, no focal deficits. Absent: altered, facial droop, speech deficit - Skin Skin exam: Present: dry, intact, normal color, warm. Absent: rash Internal Medicine: Result - Labs CBC & Chem 7: 05/05/17 04:24 05/05/17 04:24 Labs: Short CBC 05/05/17 Range/Units 04:24 WBC 7.0 (4.3-11.1) K/mcL Hgb 7.3 L (11.5-15.4) g/dL Hct 23.0 L (35.3-44.9) % Plt Count 292 (140-400) K/mcL Neutrophils # 5.0 (1.6-8.9) K/mcL BMP 05/05/17 04:24 Sodium 140 Potassium 4.1 Chloride 111 H Carbon Dioxide 21 BUN 27 H D Creatinine 0.94 Glucose 103 H Calcium 8.2 L - ABG Interpretation ABG results: PT/INR, D-dimer D-Dimer 1158 ng/mLFEU (0-500) H 05/03/17 11:19 - VTE Documentation of Mechanical Device: Graduated compression elastic hosiery Consult Discharge Plan - Plan Referrals: Teo Kim MD [Primary Care Provider] -
[2017-05-05] MEDS ORDERED: Levofloxacin 750 MG/150 ML 750 MG/150 ML BAG IVPB SCH (11:00)
[2017-05-05] MEDS: Budesonide/Formoterol 160/4.5 MDI IH SCH ×2 (11:05→23:52)
[2017-05-05 11:44] LABS: Hematocrit 25.2 % (35.3-44.9); Hemoglobin 7.9 g/dL (11.5-15.4)
[2017-05-05 11:56] LABS: % Iron Saturation 69 % (15-50); Iron 117 mcg/dL (50-170); Transferrin 121 mg/dL (180-382)
[2017-05-05 12:32] LABS: Folate 8.6 ng/mL (7.0-31.4)
[2017-05-05] MEDS ORDERED: 0.9 % Sodium Chloride 250 ML ONE (15:13)
[2017-05-06] MEDS: *HR* HYDROcodone/Acet 10/325 mg TABLET PO PRN ×4 (00:33→20:52)
[2017-05-06] MEDS: Ipratropium/Albuterol Neb 3 ML IH SCH ×4 (04:51→23:06)
[2017-05-06 06:48] LABS: Basophils % 0.2 %; Hematocrit 31.8 % (35.3-44.9); Immature Granulocytes % 0.8 % (0-4); Lymphocytes # 0.8 K/mcL (0.6-4.6); Lymphocytes % 13.3 %; Mean Corpuscular HGB Conc 32.1 g/dL (31.6-35.5); Mean Corpuscular Hemoglobin 29.7 pg (28.0-33.3); Mean Corpuscular Volume 92.7 fL (83.0-100.0); Mean Platelet Volume 11.2 fL (9.4-12.4); Monocytes # 0.7 K/mcL (0.0-1.3); Monocytes % 11.6 %; Neutrophils # 4.5 K/mcL (1.6-8.9); Nucleated Red Blood Cells 3.3 /100 WBC (0); Platelet Count 318 K/mcL (140-400); Red Blood Count 3.43 M/mcL (3.82-4.97); Red Cell Distribution Width 17.8 % (11.5-14.5); Segmented Neutrophils % 74.1 %
[2017-05-06 06:49] LABS: Potassium 4.8 mEq/L (3.5-4.5)
[2017-05-06 06:52] LABS: Calcium 9.8 mg/dL (8.6-10.8)
[2017-05-06 06:53] LABS: Hemoglobin 10.2 g/dL (11.5-15.4)
[2017-05-06] MEDS: Aspirin 81 MG TAB.CHEW PO SCH (07:56)
[2017-05-06] MEDS: Lactobacillus 1 EACH CAP.SPRINK PO SCH (07:56)
[2017-05-06] MEDS: predniSONE 20 MG TABLET PO SCH (07:56)
[2017-05-06] MEDS: Famotidine 20 MG TABLET PO SCH ×2 (07:56→20:51)
[2017-05-06] MEDS: Furosemide 20 MG TABLET PO SCH (08:00)
[2017-05-06] MEDS: Budesonide/Formoterol 160/4.5 MDI IH SCH ×2 (10:19→23:03)
[2017-05-06] MEDS: Nicotine 14 MG PATCH.TD24 TD SCH (11:53)
--- NOTE | 2017-05-06 13:02 | Internal Med Progress Note ---
Date of Encounter: 05/06/17 Time of Encounter: 09:05 - Assessment and plan (1) COPD exacerbation Current Visit: Yes Status: Acute Assessment and plan: Lungs are clear and diminshed throughout, no ronchi, wheezing, rales, or respiratory distress. Pt is wearing 2L 02 currently. Pt states that she is feeling better. Continue 02 prn, nebulizer treatments scheduled and prn Prednisone 40mg po daily Mucinex BID Changing antibiotic to Levaquin to cover UTI and pneumonitis (2) Pneumonitis Current Visit: Yes Status: Acute Assessment and plan: Per CT. Plan as above. Continue Levaquin to cover both UTI and pNeumonitis. (3) CHF (congestive heart failure) Current Visit: Yes Status: Acute Assessment and plan: Patient with history of diastolic CHF. Pt appears to be euvolemic. Continue home dose of by mouth Lasix. Continue telemetry, O2, daily weights. Qualifiers: Congestive heart failure type: diastolic Congestive heart failure chronicity: chronic Qualified Code(s): I50.32 - Chronic diastolic (congestive ) heart failure (4) Tobacco abuse Current Visit: No Status: Chronic Assessment and plan: Patient continues to smoke. We will continue to encourage smoking cessation prior to discharge. (5) Anemia Current Visit: Yes Status: Chronic Assessment and plan: Patient reports chronic anemia of unknown cause. Hemoglobin is 10.2 today. Patient denies any symptoms other than which she is being seen for. She denies increased fatigue, SOB, dizziness, or BLUM. Pt was transfused, 1 unit PRBCs, and Hbg darren and is steady as expected. Urine on admission had trace of blood, stool occult blood was positive. Iron was WNL at 117, % saturation 69. B12 480 and folate 8.6. Qualifiers: Anemia type: unspecified type Qualified Code(s): D64.9 - Anemia, unspecified (6) DVT prophylaxis Current Visit: Yes Status: Acute Assessment and plan: Patient has JADA richardson ordered, pt is ambulatory in the room. Pharmacologic prophylaxis d/c'd due to anemia. - Time Spent With Patient less than 15 minutes - Subjective Interval history: Pt was seen and assessed at 0905. Pt states that she feels well and much better than on admission. She denies SOB, BLUM, chest pain, or dizziness, n/v/d, abd pain or cramping. She denies dark or tarry stools, denies fabi bright red bleeding per rectum. Pt is aware of GI consult, denies questions. - Constitutional Vitals: Temp Pulse Resp BP Pulse Ox 97.5 F L 69 16 129/77 99 05/06/17 11:40 05/06/17 11:40 05/06/17 11:40 05/06/17 11:40 05/06/17 11:40 General appearance: Present: cooperative, A&O X 3, pleasant, no acute distress, answers questions appropriately - Head Head exam: Present: atraumatic, normal inspection, normocephalic - Eye Eye exam: Present: normal appearance, conjuntiva pink, sclera anicteric - Neck Neck exam general surgery: Present: normal inspection, supple, trachea midline. Absent: lymphadenopathy, tenderness - Respiratory Respiratory exam: Present: CTAB. Absent: accessory muscle use, chest wall tenderness, rales, respiratory distress, rhonchi, wheezes - Cardiovascular Cardiovascular exam: Present: RRR, +S1, +S2. Absent: diastolic murmur, gallop, rubs, systolic murmur - GI/Abdominal GI/Abdominal exam: Present: normal bowel sounds, soft, no peritoneal signs. Absent: distended, hernia, hepatomegaly, tenderness - Extremities Exam Extremities exam: Present: normal capillary refill, normal inspection, warm, radial pulses palpable and symmetrical. Absent: calf tenderness, cyanotic, pedal edema, tenderness - Neurological Exam Neurological exam: Present: oriented X3, no focal deficits. Absent: facial droop, speech deficit - Skin Skin exam: Present: dry, intact, normal color, warm. Absent: rash Internal Medicine: Result - Labs CBC & Chem 7: 05/06/17 05:27 05/06/17 05:27 Labs: Short CBC 05/06/17 Range/Units 05:27 WBC 6.0 (4.3-11.1) K/mcL Hgb 10.2 L D (11.5-15.4) g/dL Hct 31.8 L (35.3-44.9) % Plt Count 318 (140-400) K/mcL Neutrophils # 4.5 (1.6-8.9) K/mcL BMP 05/06/17 05:27 Sodium 139 Potassium 4.8 H Chloride 109 Carbon Dioxide 19 BUN 34 H Creatinine 1.13 H Glucose 115 H Calcium 9.8 D - ABG Interpretation ABG results: PT/INR, D-dimer D-Dimer 1158 ng/mLFEU (0-500) H 05/03/17 11:19 - VTE Documentation of Mechanical Device: Graduated compression elastic hosiery Consult Discharge Plan - Plan Referrals: Teo Kim MD [Primary Care Provider] -
--- NOTE | 2017-05-06 16:01 | Gastroenterology Consult Note ---
<RolfAdele llanos - Last Filed: 05/06/17 16:18> Date of Encounter: 05/06/17 Time of Encounter: 15:57 - Assessment and plan (1) Anemia Current Visit: Yes Status: Chronic Assessment and plan: normocytic anemia. Hg today 10.2 after 1 unit blood transfusion There was about 2 point drop in her Hg since admission. stool occult blood positive. patient is not on anticoagulation and is on baby aspirin. Folate low end of normal, B12: 480, Iron: 117 she cannot recall when her last EGD/colonoscopy was, and states it was "a long time ago" Plan: patient refuses EGD/colonoscopy. Qualifiers: Anemia type: unspecified type Qualified Code(s): D64.9 - Anemia, unspecified - Time Spent With Patient Total time spent is greater than 50% in coordination of care (as documented) at patient's floor/unit and/or counseling patient: GI History of Present Illness - Data of Consult Requesting Physician: Geri Valencia - Consult Narrative Reason for consult: anemia History of present illness: Ms. Nuñez is a 71 year old female with PMHx of HTN, HLD, chronic back pain , CAD (s/p CABG), CHF, COPD. Patient was admitted for productive cough and is currently being treated for COPD exacerbation and pneumonitis. GI was consulted for chronic anemia of unknown cause. Patient states that she has been anemic most of her life. she denies any bright red blood per rectum. she denies dark/ tarry stool. she did have both EGD and colonoscopy before but does not remember when, states it's been "a while ago." She is currently refusing both EGD and colonoscopy because she believes it does something "weird" to her heart. she denies naseua, vomiting, blood in her urine, chest pain, diarrhea, fever, chills. she does admit to occasional shortness of breath. Past Med Surg Social Fam HX - Past Medical History Medical history: cardiomyopathy, CHF, coronary artery disease, hyperlipidemia, hypertension, myocardial infarction Psychiatric history: no psych history - Past Surgical History Surgical History: appendectomy, carotid endarterectomy, cholecystectomy, coronary bypass (CABG), hysterectomy - Social History Smoking Status: Current every day smoker Smokeless Tobacco Status: No Alcohol use: none Drug use: none - Family History Father Hx Family Cardiac Disorders: Yes ([place]) Hx Family Respiratory Disorders: Yes Hx Family Cancer: No Hx Family GI Disorders: No Hx Family Endocrine Disorder: No Hx Family Neuromuscular Disorders: No Hx Family Neurologic Disorders: No Hx Family HEENT Disorders: No Hx Family Autoimmune Disorders: No Mother Hx Family Cardiac Disorders: Yes (CVA) Hx Family Respiratory Disorders: Yes Hx Family Cancer: No Hx Family GI Disorders: No Hx Family Endocrine Disorder: No Hx Family Neuromuscular Disorders: No Hx Family Neurologic Disorders: No Hx Family HEENT Disorders: No Hx Family Autoimmune Disorders: No All systems PM: reviewed and no additional remarkable complaints except as stated - Constitutional Vitals: Temp Pulse Resp BP Pulse Ox 97.5 F L 82 17 132/87 99 05/06/17 15:00 05/06/17 15:00 05/06/17 15:00 05/06/17 15:00 05/06/17 15:00 - Head Head exam: Present: atraumatic, normocephalic Results - Labs CBC & Chem 7: 05/06/17 05:27 05/06/17 05:27 Labs: Last Result Calcium 9.8 mg/dL (8.6-10.8) D 05/06/17 05:27 Iron 117 mcg/dL (50-170) 05/05/17 10:52 % Saturation 69 % (15-50) H 05/05/17 10:52 Transferrin 121 mg/dL (180-382) L 05/05/17 10:52 Troponin I 0.02 ng/mL (0-0.03) 05/03/17 11:19 Vitamin B12 480 pg/mL (213-816) 05/05/17 10:52 Folate 8.6 ng/mL (7.0-31.4) 05/05/17 10:52 Stool Occult Blood Positive (Negative) A 05/05/17 Unknown Entire Visit Hgb 10.2 g/dL (11.5-15.4) L D 05/06/17 05:27 Hct 31.8 % (35.3-44.9) L 05/06/17 05:27 Folate 8.6 ng/mL (7.0-31.4) 05/05/17 10:52 - ABG ABG results: PT/INR, D-dimer D-Dimer 1158 ng/mLFEU (0-500) H 05/03/17 11:19 Consult Discharge Plan - Plan Referrals: Teo Kim MD [Primary Care Provider] - 05/26/17 8:45 am <Tan Lanier - Last Filed: 05/06/17 18:22> Date of Encounter: 05/06/17 Time of Encounter: 17:30 - Time Spent With Patient Total time spent is greater than 50% in coordination of care (as documented) at patient's floor/unit and/or counseling patient: GI History of Present Illness - Data of Consult Requesting Physician: Geri Valencia - Consult Narrative History of present illness: Ms. Nuñez is a 71 year old female - Constitutional Vitals: Temp Pulse Resp BP Pulse Ox 97.5 F L 82 17 132/87 99 05/06/17 15:00 05/06/17 15:00 05/06/17 15:00 05/06/17 15:00 05/06/17 15:00 Results - Labs CBC & Chem 7: 05/06/17 05:27 05/06/17 05:27 Labs: Last Result Calcium 9.8 mg/dL (8.6-10.8) D 05/06/17 05:27 Iron 117 mcg/dL (50-170) 05/05/17 10:52 % Saturation 69 % (15-50) H 05/05/17 10:52 Transferrin 121 mg/dL (180-382) L 05/05/17 10:52 Troponin I 0.02 ng/mL (0-0.03) 05/03/17 11:19 Vitamin B12 480 pg/mL (213-816) 05/05/17 10:52 Folate 8.6 ng/mL (7.0-31.4) 05/05/17 10:52 Stool Occult Blood Positive (Negative) A 05/05/17 Unknown Entire Visit Hgb 10.2 g/dL (11.5-15.4) L D 05/06/17 05:27 Hct 31.8 % (35.3-44.9) L 05/06/17 05:27 Folate 8.6 ng/mL (7.0-31.4) 05/05/17 10:52 - ABG ABG results: PT/INR, D-dimer D-Dimer 1158 ng/mLFEU (0-500) H 05/03/17 11:19 - Attending Attestation I examined this patient and my medical decision-making was reviewed with the Resident Physician. I agree with the documented findings, disposition and treatment plan as described except to the extent set forth below. Discussed with patient and she is refusing to have scopes done this time, understand the the risks of not having scopes done
--- NOTE | 2017-05-06 18:32 | Internal Med Progress Note ---
Date of Encounter: 05/06/17 Time of Encounter: 09:00 - Assessment and plan (1) COPD exacerbation Current Visit: Yes Status: Acute Assessment and plan: Lungs are clear and diminshed throughout, no ronchi, wheezing, rales, or respiratory distress. Pt is wearing 2L 02 currently. Pt states that she is feeling better. Patient will most likely discharge in the morning if hemoglobin remains stable. She will be sent home with a prednisone taper, Mucinex, and antibiotic. Continue 02 prn, nebulizer treatments scheduled and prn Prednisone 40mg po daily Mucinex BID Changing antibiotic to Levaquin to cover UTI and pneumonitis (2) Pneumonitis Current Visit: Yes Status: Acute Assessment and plan: Per CT. Plan as above. Patient will be sent home with Levaquin by mouth on discharge. Continue Levaquin to cover both UTI and pNeumonitis. (3) CHF (congestive heart failure) Current Visit: Yes Status: Acute Assessment and plan: Patient with history of diastolic CHF. Pt appears to be euvolemic. No acute exacerbation at this time. Continue home dose of by mouth Lasix. Continue telemetry, O2, daily weights I and O Qualifiers: Congestive heart failure type: diastolic Congestive heart failure chronicity: chronic Qualified Code(s): I50.32 - Chronic diastolic (congestive ) heart failure (4) Tobacco abuse Current Visit: No Status: Chronic Assessment and plan: Patient continues to smoke. We will continue to encourage smoking cessation prior to discharge. Sent patient home with prescription for nicotine patches on discharge. (5) Anemia Current Visit: Yes Status: Chronic Assessment and plan: Patient reports chronic anemia of unknown cause. Hemoglobin is 10.2 today. Patient denies any symptoms other than which she is being seen for. She denies increased fatigue, SOB, dizziness, or BLUM. Pt was transfused, 1 unit PRBCs, and Hbg darren and is steady as expected. Urine on admission had trace of blood, stool occult blood was positive. Iron was WNL at 117, % saturation 69. B12 480 and folate 8.6. Patient was seen by GI for possible scope due to stool occult blood being positive. She has declined intervention by GI due to stating it makes her heart feels funny when she set scope in the past. Patient will be discharged in the morning if hemoglobin remains stable. Qualifiers: Anemia type: unspecified type Qualified Code(s): D64.9 - Anemia, unspecified (6) DVT prophylaxis Current Visit: Yes Status: Acute Assessment and plan: Patient has JADA hose ordered, pt is ambulatory in the room. Pharmacologic prophylaxis d/c'd due to anemia. (7) UTI (urinary tract infection) Current Visit: Yes Status: Acute Assessment and plan: Patient has been treated for urinary tract infection. Final culture grew Morganella [email or web address] morganii. She is being treated with Levaquin to which the bacteria is susceptible, it is also treating COPD/ pneumonitis. Patient will be sent with prescription. Qualifiers: Urinary tract infection type: acute cystitis Hematuria presence: with hematuria Qualified Code(s): N30.01 - Acute cystitis with hematuria - Time Spent With Patient less than 15 minutes - Subjective Interval history: Pt was seen and assessed at 0900. Pt states that she feels well and much better than on admission. She denies SOB, BLUM, chest pain, or dizziness, n/v/d, abd pain or cramping. She denies dark tarry stools, melena, abdominal cramping, or diarrhea. Patient tells GI she does not want an endoscopy or colonoscopy. She will be discharged in the morning if hemoglobin remained stable. - Constitutional Vitals: Temp Pulse Resp BP Pulse Ox 97.5 F L 82 17 132/87 99 05/06/17 15:00 05/06/17 15:00 05/06/17 15:00 05/06/17 15:00 05/06/17 15:00 General appearance: Present: cooperative, A&O X 3, pleasant, no acute distress, answers questions appropriately - Head Head exam: Present: atraumatic, normal inspection, normocephalic - Eye Eye exam: Present: normal appearance, conjuntiva pink, sclera anicteric - Neck Neck exam general surgery: Present: supple, trachea midline. Absent: lymphadenopathy, tenderness - Respiratory Respiratory exam: Present: decreased breath sounds, CTAB. Absent: accessory muscle use, rales, rhonchi, wheezes - Cardiovascular Cardiovascular exam: Present: RRR, +S1, +S2. Absent: diastolic murmur, gallop, rubs, systolic murmur - GI/Abdominal GI/Abdominal exam: Present: normal bowel sounds, soft, no peritoneal signs. Absent: distended, hepatomegaly, tenderness - Extremities Exam Extremities exam: Present: warm, radial pulses palpable and symmetrical. Absent : calf tenderness, cyanotic, pedal edema, tenderness - Neurological Exam Neurological exam: Present: alert, oriented X3, no focal deficits, pronater drift. Absent: altered, facial droop, speech deficit - Skin Skin exam: Present: dry, intact, normal color, warm. Absent: rash Internal Medicine: Result - Labs CBC & Chem 7: 05/06/17 05:27 05/06/17 05:27 Labs: Short CBC 05/06/17 Range/Units 05:27 WBC 6.0 (4.3-11.1) K/mcL Hgb 10.2 L D (11.5-15.4) g/dL Hct 31.8 L (35.3-44.9) % Plt Count 318 (140-400) K/mcL Neutrophils # 4.5 (1.6-8.9) K/mcL BMP 05/06/17 05:27 Sodium 139 Potassium 4.8 H Chloride 109 Carbon Dioxide 19 BUN 34 H Creatinine 1.13 H Glucose 115 H Calcium 9.8 D - ABG Interpretation ABG results: PT/INR, D-dimer D-Dimer 1158 ng/mLFEU (0-500) H 05/03/17 11:19 - VTE Documentation of Mechanical Device: Graduated compression elastic hosiery Consult Discharge Plan - Plan Referrals: Teo Kim MD [Primary Care Provider] - 05/26/17 8:45 am
[2017-05-07 05:18] LABS: Basophils % 0.2 %; Hematocrit 34.8 % (35.3-44.9); Immature Granulocytes % 0.7 % (0-4); Lymphocytes # 1.4 K/mcL (0.6-4.6); Lymphocytes % 14.3 %; Mean Corpuscular HGB Conc 31.6 g/dL (31.6-35.5); Mean Corpuscular Hemoglobin 29.6 pg (28.0-33.3); Mean Corpuscular Volume 93.8 fL (83.0-100.0); Mean Platelet Volume 11.3 fL (9.4-12.4); Monocytes # 1.2 K/mcL (0.0-1.3); Monocytes % 12.6 %; Nucleated Red Blood Cells 1.7 /100 WBC (0); Platelet Count 313 K/mcL (140-400); Red Blood Count 3.71 M/mcL (3.82-4.97); Red Cell Distribution Width 17.9 % (11.5-14.5); Segmented Neutrophils % 72.2 %
[2017-05-07 05:25] LABS: Neutrophils # 6.9 K/mcL (1.6-8.9)
[2017-05-07 05:29] LABS: Calcium 10.1 mg/dL (8.6-10.8); Potassium 5.2 mEq/L (3.5-4.5)
[2017-05-07] MEDS: *HR* HYDROcodone/Acet 10/325 mg TABLET PO PRN ×2 (05:35→13:05)
[2017-05-07] MEDS: Ipratropium/Albuterol Neb 3 ML IH SCH ×2 (05:53→10:26)
[2017-05-07] MEDS ORDERED: 0.9 % Sodium Chloride 1,000 ML IVC SCH (07:30)
[2017-05-07 07:39] VITALS: BP 144/82
[2017-05-07] MEDS: predniSONE 20 MG TABLET PO SCH (08:45)
[2017-05-07] MEDS: Famotidine 20 MG TABLET PO SCH (08:45)
[2017-05-07] MEDS: Aspirin 81 MG TAB.CHEW PO SCH (08:46)
[2017-05-07] MEDS: Lactobacillus 1 EACH CAP.SPRINK PO SCH (08:46)
[2017-05-07] MEDS: Nicotine 14 MG PATCH.TD24 TD SCH (08:47)
[2017-05-07] MEDS: Furosemide 20 MG TABLET PO SCH (08:47)
--- NOTE | 2017-05-07 09:37 | Discharge Summary ---
Date of Encounter: 05/07/17 Time of Encounter: 08:30 - Discharge Diagnosis (1) COPD exacerbation Priority: Primary Status: Acute Comments: Lungs are clear, pt has no cough, no dyspnea, no increased 02 demand. She states that she is back to baseline. Continue home medications. (2) Pneumonitis Priority: Secondary Status: Acute Comments: No leukocytosis, no fever, no cough. Pt denies dyspnea or BLUM. She will continue Levquin at home for this, as well as UTI. Pt has home 02 and will get new portable tank. (3) CHF (congestive heart failure) Priority: Secondary Status: Acute Comments: Patient with history of diastolic CHF. Pt appears to be euvolemic. No acute exacerbation at this time. Continue home dose of by mouth Lasix. Qualifiers: Congestive heart failure type: diastolic Congestive heart failure chronicity: chronic Qualified Code(s): I50.32 - Chronic diastolic (congestive ) heart failure (4) Tobacco abuse Priority: Secondary Status: Chronic Comments: Patient continues to smoke. Discussed smoking cessation, pt states that she will think about cessation and is open to patches for home. Sent patient home with prescription for nicotine patches on discharge. (5) Anemia Priority: Secondary Status: Chronic Comments: Hgb 11.0 today. Hgb has increased since transfusion. Pt reports chronic anemia of unknown origin. GI consult yesterday, pt has declined scope, but states that she will go home and think about a scope. Pt is asymptomatic and labs are WNL. Follow up with PCP. Qualifiers: Anemia type: unspecified type Qualified Code(s): D64.9 - Anemia, unspecified (6) DVT prophylaxis Priority: Secondary Status: Acute Comments: Ambulatory, JADA richardson. No pharmacologic prophylaxis due to anemia. (7) UTI (urinary tract infection) Priority: Secondary Status: Acute Comments: Patient has been treated for urinary tract infection. Final culture grew Morganella morganii.ssp morganii. She is being treated with Levaquin to which the bacteria is susceptible, it is also treating COPD/ pneumonitis. Patient will be sent with prescription for Levaquin 750mg po every other day. Qualifiers: Urinary tract infection type: acute cystitis Hematuria presence: with hematuria Qualified Code(s): N30.01 - Acute cystitis with hematuria (8) CKD (chronic kidney disease) stage 3, GFR 30-59 ml/min Priority: Secondary Status: Chronic Comments: Sr Cr 1.37, GFR 38, appears to be at pt's baseline. Continue to avoid nephrotoxins and NSAIDs. Pt will be sent home with renally dosed Levaquin. - Discharge Medications Prescriptions: levoFLOXacin [Levaquin] 750 mg PO DAILY #7 tablet Nicotine Patch [Nicoderm] 14 mg TD DAILY #28 patch predniSONE [PredniSONE] 10 mg PO DAILY #15 tablet Home Medications: Atorvastatin [Lipitor] 10 mg PO HS 06/16/15 [History] Carvedilol Phosphate [Coreg Cr] 20 mg PO DAILY 06/16/15 [History] Famotidine [Pepcid] 40 mg PO BID 06/16/15 [History] Hydrocodone/Acetaminophen [[place] 10-325 Tablet] 1 tab PO Q4-6H PRN 06/16/15 [ History] Aspirin 81 mg PO DAILY #30 tab.chew 01/27/16 [Rx] Budesonide/Formoterol 160/4.5 [Symbicort 160/4.5] 2 puff IH BIDR #1 inhaler 02/05 [Rx] Furosemide [Lasix] 20 mg PO DAILY #30 tablet 01/27/16 [Rx] Nitroglycerin 0.4 mg SL Q5MIN PRN #20 tab.subl 01/27/16 [Rx] Lisinopril [Zestril] 5 mg PO DAILY 05/03/17 [History] Nicotine Patch [Nicoderm] 14 mg TD DAILY #28 patch 05/07/17 [Rx] levoFLOXacin [Levaquin] 750 mg PO DAILY #7 tablet 05/07/17 [Rx] predniSONE [PredniSONE] 10 mg PO DAILY #15 tablet 05/07/17 [Rx] Allergies/Adverse Reactions: 3 Allergy/AdvReac Type Severity Reaction Status Date / Time No Known Drug Allergies Allergy See Verified 06/16/15 16:10 Comments Date of admission: 05/06/17 18:37 Primary care physician: Teo Kim Discharging clinician: Mary Carmen Mayo Anticipated date of discharge: 05/07/17 - Patient Status Disposition: Home, Self-Care Condition: Good Functional capacity at discharge: independent ambulation Overall status at discharge: patient is back to baseline - Discharge Instructions Follow Up With: Teo Kim MD [Primary Care Provider] - 05/26/17 8:45 am Additional Instructions: Follow up with your PCP in the next 7-10 days for a follow up visit. Return to the ER as needed for any other problems or concerns or if your symptoms return or worsen. Take your antibiotic every other day until it is gone. I have sent prescriptions to [facility], Prednisone, Levaquin, and nicotine patches. Resume your home medications and activitites as tolerated. - Diet and Activity Activity: increase activity as tolerated Diet: advance to your usual diet Hospital course: Ms. Nuñez is a 71 year old female past medical history of COPD, chronic anemia, see Rosalia stage III, CHF,, hypertension, hyperlipidemia, degenerative disc disease, smoker, atrial flutter, coronary artery disease who presented to the emergency department with complaint of one-week history of productive cough , shortness of breath, decreased appetite. She reported feeling progressively worse to the weak with generalized malaise and body aches. She denied any fever or chills, nausea vomiting or diarrhea. Patient had an elevated d-dimer in the emergency department, CTA of the chest showed no evidence of PE, did show early pneumonitis and bronchiolitis. She was admitted for observation. EKG was normal sinus rhythm with occasional PVCs and no ischemic changes. BNP was elevated at 2275. Troponins were negative 3. Urinalysis was concerning for UTI and she was started on Levaquin 750 mg IV every 48 hours. Patient normally wears oxygen at home, she does not have an increased demand. She also reports chronic anemia that worsened while in the hospital. Hemoglobin dropped to 7.3 and she was transfused with 1 unit of packed red cells. She was asymptomatic at 7.3. After transfusion she is steadily increased, she is 11 today. I did a guaiac myself at the bedside, it was positive for blood. Dr. sparrow was consulted for possible scope and patient declined. She said she will go home and consider seeing Dr. Lanier in the future. Renal function has been right around baseline. Serum creatinine today is 1.37, GFR is 38. Urine culture grew Morganella, she will continue treatment with Levaquin, as it is susceptible. She will be sent home with 750 mg by mouth every other day. She is also going to go home with prescriptions for prednisone taper and nicotine patches. We discussed smoking cessation today, patient states that she will consider and is open to taking patches home with her. Physical exam is unremarkable, she denies any increased shortness of breath over baseline, even with hemoglobin 7.3. She has oxygen at home and has had a portable tank delivered to her home while she was here. Patient states that she feels better than she did when she got here and is back to her baseline. She has no leukocytosis, fever, productive cough, headache, nausea vomiting or diarrhea, abdominal pain, headache, or dizziness. Patient's labs have been stable and within normal limits, she is on her normal 2 L of oxygen and will continue at home. Patient is ready for discharge. Time spent discussing smoking cessation with patient: 3 to 10 minutes - Time Spent with Patient Total time spent providing and/or coordinating discharge services: Less than 30 minutes - Constitutional Vitals: Temp Pulse Resp BP Pulse Ox 97.5 F L 86 16 144/82 98 05/07/17 07:37 05/07/17 07:37 05/07/17 07:37 05/07/17 07:37 05/07/17 07:37 General appearance: Present: cooperative, A&O X 3, pleasant, no acute distress, answers questions appropriately - Head Head exam: Present: atraumatic, normal inspection, normocephalic - Eye Eye exam: Present: normal appearance, conjuntiva pink, sclera anicteric - Neck Neck exam general surgery: Present: normal inspection, supple, trachea midline. Absent: lymphadenopathy, tenderness - Respiratory Respiratory exam: Present: decreased breath sounds, CTAB. Absent: accessory muscle use, chest wall tenderness, rales, rhonchi, wheezes - Cardiovascular Cardiovascular exam: Present: RRR, +S1, +S2. Absent: diastolic murmur, gallop, rubs, systolic murmur - GI/Abdominal GI/Abdominal exam: Present: normal bowel sounds, soft, no peritoneal signs. Absent: distended, hepatomegaly, tenderness - Extremities Exam Extremities exam: Present: normal inspection, warm, radial pulses palpable and symmetrical. Absent: calf tenderness, cyanotic, pedal edema, tenderness - Neurological Exam Neurological exam: Present: alert, oriented X3. Absent: facial droop, speech deficit - Skin Skin exam: Present: dry, intact, normal color, warm - VTE Documentation of Mechanical Device: Graduated compression elastic hosiery
[2017-05-07] MEDS: Budesonide/Formoterol 160/4.5 MDI IH SCH (10:26)
[2017-05-07] MEDS ORDERED: Levofloxacin 750 MG/150 ML 750 MG/150 ML BAG IVPB SCH (13:00)
--- NOTE | 2017-05-07 13:56 | Physician Discharge Referral ---
Home Health/Hosp Referral Info Transfer to: Home Health Provider in Charge Post Discharge: PCP - Diagnosis (1) COPD exacerbation Priority: Primary Status: Acute (2) Pneumonitis Priority: Secondary Status: Acute (3) CHF (congestive heart failure) Priority: Secondary Status: Acute (4) Tobacco abuse Priority: Secondary Status: Chronic (5) Anemia Priority: Secondary Status: Chronic (6) DVT prophylaxis Priority: Secondary Status: Acute (7) UTI (urinary tract infection) Priority: Secondary Status: Acute (8) CKD (chronic kidney disease) stage 3, GFR 30-59 ml/min Priority: Secondary Status: Chronic - Respiratory Orders Oxygen / L per min (2 liters) Smoking Cessation: Smoking cessation has been advised. For more information, call the [employer] Quit Line at 0-402-PBNT-NOW. - Diet/Nutrition Diet/Nutrition Orders: No Added Salt (JAVI), Renal - Activity Activity Orders: Up ad rosaline - Services Needed Following services are medically necessary services: Home Health Aide - Transfer Medications Prescriptions: levoFLOXacin [Levaquin] 750 mg PO DAILY #7 tablet Nicotine Patch [Nicoderm] 14 mg TD DAILY #28 patch predniSONE [PredniSONE] 10 mg PO DAILY #15 tablet Home Medications: Atorvastatin [Lipitor] 10 mg PO HS 06/16/15 [History] Carvedilol Phosphate [Coreg Cr] 20 mg PO DAILY 06/16/15 [History] Famotidine [Pepcid] 40 mg PO BID 06/16/15 [History] Hydrocodone/Acetaminophen [[place] 10-325 Tablet] 1 tab PO Q4-6H PRN 06/16/15 [ History] Aspirin 81 mg PO DAILY #30 tab.chew 01/27/16 [Rx] Budesonide/Formoterol 160/4.5 [Symbicort 160/4.5] 2 puff IH BIDR #1 inhaler 02/05 [Rx] Furosemide [Lasix] 20 mg PO DAILY #30 tablet 01/27/16 [Rx] Nitroglycerin 0.4 mg SL Q5MIN PRN #20 tab.subl 01/27/16 [Rx] Lisinopril [Zestril] 5 mg PO DAILY 05/03/17 [History] Nicotine Patch [Nicoderm] 14 mg TD DAILY #28 patch 05/07/17 [Rx] levoFLOXacin [Levaquin] 750 mg PO DAILY #7 tablet 05/07/17 [Rx] predniSONE [PredniSONE] 10 mg PO DAILY #15 tablet 05/07/17 [Rx] Allergies/Adverse Reactions: 3 Allergy/AdvReac Type Severity Reaction Status Date / Time No Known Drug Allergies Allergy See Verified 06/16/15 16:10 Comments Certification: Further, I certify that my clinical findings support that this patient is homebound (i.e. absences from home require considerable and taxing effort and are for medical reasons or jain services or infrequently or short duration when for other reasons) because: Homebound Reason: Patient requires assistance of a person or device to safely leave home, Severity of cardiac or pulmonary status limits activity tolerance Attestation: My signature below is to certify that this patient is under my care and that I, or nurse practitioner, or a physician's pediatric assistant working with me, has a face-to -face encounter with this patient.
== END 2017-05-07 14:42 | disposition home or self-care (01) | DRG 190 ==
LOC: EMEROO 10:27 → 3BNU 10:27
PROVIDERS: ADMIT Internal Medicine; ATTEND Nurse Practitioner Family

== ENCOUNTER 2017-05-08 13:56 | Inpatient (IN) ==
[2017-05-08] MEDS ORDERED: Ipratropium/Albuterol Neb 3 ML IH ONE (14:00)
--- NOTE | 2017-05-08 14:25 | Emergency Department Note ---
Disposition Clinical Impression: Difficulty breathing, Shortness of breath, Hx of CABG, Generalized weakness CHF exacerbation Qualifiers: Congestive heart failure type: systolic Qualified Code(s): I50.23 - Acute on chronic systolic (congestive) heart failure Disposition: Admitted As Inpatient Condition: Fair Time of Disposition: 19:57 SOB HPI - General Chief Complaint: ED Shortness of Breath/Dyspnea Stated Complaint: hilda/cough/ d/c from hospital yesterday pneumonia Time Seen by Provider: 05/08/17 13:58 Nursing Notes Reviewed: Yes Vital Signs Reviewed: Yes - History of Present Illness Patient 71-year-old female who complains of worsening shortness of breath cough secondary to pneumonia. Patient was recently discharged times one day ago. Since discharge patient states her breathing has gotten worse. Patient is on home O2. Patient has a history of CABG. Patient denies any chest pain. Patient states she lives on her own and is unable to take care of herself secondary to her shortness of breath and feeling ill. - Related Data Home Medications Medication Instructions Recorded Confirmed Atorvastatin [Lipitor] 10 mg PO HS 06/16/15 05/03/17 Carvedilol Phosphate [Coreg Cr] 20 mg PO DAILY 06/16/15 05/03/17 Famotidine [Pepcid] 40 mg PO BID 06/16/15 05/03/17 Hydrocodone/Acetaminophen [[place] 1 tab PO Q4-6H PRN 06/16/15 05/03/17 10-325 Tablet] Lisinopril [Zestril] 5 mg PO DAILY 05/03/17 05/03/17 Previous Rx's Medication Instructions Recorded Aspirin 81 mg PO DAILY #30 tab.chew 01/27/16 Budesonide/Formoterol 160/4.5 2 puff IH BIDR #1 inhaler 01/27/16 [Symbicort 160/4.5] Furosemide [Lasix] 20 mg PO DAILY #30 tablet 01/27/16 Nitroglycerin 0.4 mg SL Q5MIN PRN #20 tab.subl 01/27/16 Nicotine Patch [Nicoderm] 14 mg TD DAILY #28 patch 05/07/17 levoFLOXacin [Levaquin] 750 mg PO DAILY #7 tablet 05/07/17 predniSONE [PredniSONE] 10 mg PO DAILY #15 tablet 05/07/17 Allergies Allergy/AdvReac Type Severity Reaction Status Date / Time No Known Drug Allergies Allergy See Verified 05/08/17 14:02 Comments Review of Systems: Patient denies fever, chills, nausea, vomiting. Patient states she is short of breath, lightheadedness, no dizziness patient has cough. Patient has pain with coughing, and patient complains of weakness generalized All systems ED: reviewed and negative except as stated. Review of Systems: As Per HPI Constitutional: Denies: fever Past Medical History - Past Medical History Attestation: Yes The following information was validated with the patient. Source: patient Medical history: Reports: cardiomyopathy, CHF, coronary artery disease, hyperlipidemia, hypertension, myocardial infarction Surgical history: Reports: appendectomy, carotid endarterectomy, cholecystectomy , coronary bypass (CABG), hysterectomy Psychiatric history: Reports: no psych history RESEARCH BIOSTATISTICIAN history: Reports: no RESEARCH BIOSTATISTICIAN history - Social History Smoking Status: Current every day smoker Smokeless Tobacco Status: No Alcohol use: Reports: none Drug use: Reports: none Physical Exam 16-year-old female who is alert and oriented 3 in no acute distress. Patient currently on 2 L nasal cannula. Patient is very frail. Patient BMI 19. When patient coughs she grimaces with discomfort - General Limitations: no limitations General appearance: alert, in no apparent distress - Head Head exam: atraumatic, normocephalic, normal inspection - Eye Eye exam: Present: normal appearance, PERRL, EOMI - ENT ENT exam: normal exam - Neck Neck exam: Present: normal inspection, full ROM, trachea midline - Chest Chest inspection: Present: symmetric chest wall rise, other (Midline surgical scar healed no erythema). Absent: tenderness, rash - Respiratory Respiratory exam: Present: wheezes (Right lower lung field wheezes to auscultation) - Cardiovascular Cardiovascular exam: Present: regular rate, normal rhythm, normal heart sounds - Abdominal Exam Abdominal exam: Present: soft, Non-Tender. Absent: tenderness, distention, guarding, rebound, rigidity - Extremities Exam Extremities exam: Present: normal inspection, full ROM. Absent: tenderness, pedal edema - Expanded Lower Extremity Exam Hip/Pelvis exam: Present: normal inspection Upper leg exam: Present: normal inspection, full ROM Knee exam: Present: normal inspection, full ROM Lower leg exam: Present: normal inspection, full ROM Ankle exam: Present: normal inspection, full ROM Foot/toe exam: Present: normal inspection, full ROM Neurovascular/Tendon exam: Absent: motor deficit, sensory deficit, tendon deficit - Back Exam Back exam: Present: normal inspection, full ROM. Absent: tenderness, CVA tenderness (R), CVA tenderness (L) - Neurological Exam Neurological exam: Present: alert, oriented X3 - Skin Skin exam: Present: warm, dry, intact, pallor, other (There is ecchymosis on patient's right upper extremity) Course - Reevaluation(s) Reevaluation #1: Labs ordered, chest x-ray ordered, DuoNeb ordered Time: 14:39 - Consultations Consultation #1: Dr. Emmanuel Hughes the hospitalist has accepted patient for admission at 1832 hrs. Time: 18:35 Vital Signs Temperature 98.5 F 05/08/17 14:01 Pulse Rate 79 05/08/17 14:01 Respiratory Rate 20 05/08/17 14:01 Blood Pressure 128/77 05/08/17 14:01 O2 Sat by Pulse Oximetry 100 05/08/17 14:01 Temperature 98.5 F 05/08/17 14:01 Pulse Rate 86 05/08/17 18:07 Respiratory Rate 20 05/08/17 19:54 Blood Pressure 148/75 05/08/17 19:54 O2 Sat by Pulse Oximetry 98 05/08/17 18:07 Oxygen Delivery Oxygen Delivery Nasal Cannula Shortness of Breath/Dyspnea - MDM Narrative Medical decision making narrative: Performed chest x-ray to observe evolution of patient's pneumonia and labs to rule out sepsis. Labs negative for signs of sepsis. The patient's BMP is currently over 3000 which is greater than last check. Patient is chest x-ray shows CHF picture with pulmonary edema. Patient currently on oxygen via nasal cannula maintaining O2 sat at 99%. Patient received a breathing treatment DuoNeb. Patient was too weak to get up and give her urine and had to be straight cathetered. Patient be admitted for CHF exacerbation, generalized weakness and shortness of breath Patient was accepted for admission. Dr. Hughes recommended d-dimer testing. it was ordered - Lab Data Lab results reviewed: Yes I reviewed the patient's lab results. Lab results narrative: Short CBC 05/08/17 Range/Units 14:56 WBC 10.7 (4.3-11.1) K/mcL Hgb 9.9 L (11.5-15.4) g/dL Hct 31.6 L (35.3-44.9) % Plt Count 273 (140-400) K/mcL Neutrophils # 8.7 (1.6-8.9) K/mcL BMP 05/08/17 Range/Units 14:56 Sodium 139 (136-145) mEq/L Potassium 4.7 H (3.5-4.5) mEq/L Chloride 109 (98-109) mEq/L Carbon Dioxide 22 (19-29) mEq/L BUN 34 H (7-20) mg/dL Creatinine 0.93 (0.57-1.11) mg/dL Glucose 102 H (70-99) mg/dL Calcium 8.6 (8.6-10.8) mg/dL Cardiac Enzymes 05/08/17 Range/Units 14:56 Troponin I 0.03 (0-0.03) ng/mL Urine 05/08/17 Range/Units 15:20 Urine Color Yellow (Yellow) Urine Clarity Clear (Clear) Urine pH 5.5 (5.0-8.0) pH Units Ur Specific Tiline 1.021 (1.010-1.025) Urine Protein Negative (Neg-Trace) mg/dL Urine Glucose (UA) Normal (Normal) mg/dL Result diagrams: 05/08/17 14:56 05/08/17 14:56 Lab Results 05/08/17 05/08/17 05/08/17 Range/Units 14:56 14:56 14:56 WBC 10.7 (4.3-11.1) K/mcL RBC 3.29 L (3.82-4.97) M/mcL Hgb 9.9 L (11.5-15.4) g/dL Hct 31.6 L (35.3-44.9) % MCV 96.0 (83.0-100.0) fL MCH 30.1 (28.0-33.3) pg MCHC 31.3 L (31.6-35.5) g/dL RDW 17.6 H (11.5-14.5) % Plt Count 273 (140-400) K/mcL MPV 11.3 (9.4-12.4) fL Immature Gran % 1.2 (0-4) % Seg Neutrophils % 81.5 % Lymphocytes % 8.1 % Monocytes % 9.1 % Eosinophils % 0.0 % Basophils % 0.1 % Neutrophils # 8.7 (1.6-8.9) K/mcL Lymphocytes # 0.9 (0.6-4.6) K/mcL Monocytes # 1.0 (0.0-1.3) K/mcL Eosinophils # 0.0 (0.0-0.6) K/mcL Basophils # 0.0 (0.0-0.2) K/mcL Nucleated RBCs/100 WBC 1.5 H (0) /100 WBC Sodium 139 (136-145) mEq/L Potassium 4.7 H (3.5-4.5) mEq/L Chloride 109 (98-109) mEq/L Carbon Dioxide 22 (19-29) mEq/L BUN 34 H (7-20) mg/dL Creatinine 0.93 (0.57-1.11) mg/dL Est GFR ( Amer) > 60 (> 60) Est GFR (Non-Af Amer) 59 L (> 60) BUN/Creatinine Ratio 37 H (6-26) Glucose 102 H (70-99) mg/dL Calculated Osmolality 296 (280-300) Lactic Acid 1.9 (0.5-2.2) mmol/L Calcium 8.6 (8.6-10.8) mg/dL Troponin I (0-0.03) ng/mL B-Natriuretic Peptide (0-100) pg/mL Urine Color (Yellow) Urine Clarity (Clear) Urine pH (5.0-8.0) pH Units Ur Specific Tiline (1.010-1.025) Urine Protein (Neg-Trace) mg/dL Urine Glucose (UA) (Normal) mg/dL Urine Ketones (Negative) mg/dL Urine Blood (Negative) Urine Nitrite (Negative) Urine Bilirubin (Negative) Urine Urobilinogen (Normal) mg/dL Ur Leukocyte Esterase (Negative) Ur Culture Indicated? (NO) 05/08/17 05/08/17 05/08/17 Range/Units 14:56 14:56 15:20 WBC (4.3-11.1) K/mcL RBC (3.82-4.97) M/mcL Hgb (11.5-15.4) g/dL Hct (35.3-44.9) % MCV (83.0-100.0) fL MCH (28.0-33.3) pg MCHC (31.6-35.5) g/dL RDW (11.5-14.5) % Plt Count (140-400) K/mcL MPV (9.4-12.4) fL Immature Gran % (0-4) % Seg Neutrophils % % Lymphocytes % % Monocytes % % Eosinophils % % Basophils % % Neutrophils # (1.6-8.9) K/mcL Lymphocytes # (0.6-4.6) K/mcL Monocytes # (0.0-1.3) K/mcL Eosinophils # (0.0-0.6) K/mcL Basophils # (0.0-0.2) K/mcL Nucleated RBCs/100 WBC (0) /100 WBC Sodium (136-145) mEq/L Potassium (3.5-4.5) mEq/L Chloride (98-109) mEq/L Carbon Dioxide (19-29) mEq/L BUN (7-20) mg/dL Creatinine (0.57-1.11) mg/dL Est GFR ( Amer) (> 60) Est GFR (Non-Af Amer) (> 60) BUN/Creatinine Ratio (6-26) Glucose (70-99) mg/dL Calculated Osmolality (280-300) Lactic Acid (0.5-2.2) mmol/L Calcium (8.6-10.8) mg/dL Troponin I 0.03 (0-0.03) ng/mL B-Natriuretic Peptide 3095 H (0-100) pg/mL Urine Color Yellow (Yellow) Urine Clarity Clear (Clear) Urine pH 5.5 (5.0-8.0) pH Units Ur Specific [place]iline 1.021 (1.010-1.025) Urine Protein Negative (Neg-Trace) mg/dL Urine Glucose (UA) Normal (Normal) mg/dL Urine Ketones Negative (Negative) mg/dL Urine Blood Negative (Negative) Urine Nitrite Negative (Negative) Urine Bilirubin Negative (Negative) Urine Urobilinogen Normal (Normal) mg/dL Ur Leukocyte Esterase Negative (Negative) Ur Culture Indicated? NO (NO) - Radiology Data Radiology results reviewed: Yes I reviewed the patient's radiology results. Chest X-Ray 05/08/17 14:00 IMPRESSION: CHF with mild interstitial/ alveolar pulmonary edema. D/ / Israel Forbes MD / Israel Forbes MD Interpreting Provider: Israel Forbes MD - EKG Data EKG attestation: Yes I reviewed and interpreted this EKG. EKG results narrative: EKG taken 05/08/2017 at 14 04R shows sinus rhythm at a rate of 83 bpm. Patient has no specific T-wave abnormalities in lead V2 shows a inverted T waves. Previous EKG taken 05/03/2017 does not show inverted T waves in V2. Both EKGs show no ST elevations or depressions and a leads. Attestation Statement - Attestation Attestation: Patient was seen with resident physician. I reviewed the history, physical, assessment and plan, and agree with the findings. I also personally evaluated this patient and had [id number] time with this patient. 71-year-old female presents to the emergency department status post discharge from the hospital for diagnosis of pneumonia yesterday with continued shortness of breath. Patient states her breathing has not gotten any better since returning home and has not fact gotten worse. She is on home O2. She says is not helping. She also has some abdominal discomfort where she said they were doing some kind of injections while she was in the hospital. She denies other complaints at this time. On examination vital signs she is afebrile she has normal blood pressure and her oxygenation is good. Lungs sound diffuse crackles. Heart is normal. Abdomen is soft with minimal tenderness which seems to be superficial from some bruising secondary to injections. Extremities are unremarkable neurologically this patient appears intact. ED course repeat x-ray reveals CHF. Labs confirm this finding. She had some improvement with breathing treatment. We will administer IV Lasix and likely admitted to the hospital for further evaluation and treatment. Discussed case with hospitalist who agreed to admit the patient for further evaluation and treatment. Hemodynamically she remained stable on the emergency department required IV diuretics to help get fluid off her lungs. Agree with the resident physician assessment plan. Critical care time 35 minutes.
[2017-05-08] MEDS ORDERED: Furosemide 20 MG/2 ML VIAL IVP ONE (14:39)
[2017-05-08 15:08] LABS: Basophils % 0.1 %; Hematocrit 31.6 % (35.3-44.9); Hemoglobin 9.9 g/dL (11.5-15.4); Immature Granulocytes % 1.2 % (0-4); Lymphocytes # 0.9 K/mcL (0.6-4.6); Lymphocytes % 8.1 %; Mean Corpuscular HGB Conc 31.3 g/dL (31.6-35.5); Mean Corpuscular Hemoglobin 30.1 pg (28.0-33.3); Mean Platelet Volume 11.3 fL (9.4-12.4); Monocytes % 9.1 %; Neutrophils # 8.7 K/mcL (1.6-8.9); Nucleated Red Blood Cells 1.5 /100 WBC (0); Platelet Count 273 K/mcL (140-400); Red Blood Count 3.29 M/mcL (3.82-4.97); Red Cell Distribution Width 17.6 % (11.5-14.5); Segmented Neutrophils % 81.5 %
[2017-05-08 15:18] LABS: BUN/Creatinine Ratio 37 (6-26); Blood Urea Nitrogen 34 mg/dL (7-20); Calcium 8.6 mg/dL (8.6-10.8); Carbon Dioxide 22 mEq/L (19-29); Chloride 109 mEq/L (98-109); Glucose 102 mg/dL (70-99); Osmolality,Calculated 296 (280-300); Potassium 4.7 mEq/L (3.5-4.5); Sodium 139 mEq/L (136-145); eGFR For African Americans > 60 (> 60); eGFR For Non-African Americans 59 (> 60)
[2017-05-08 15:30] LABS: Bilirubin,Urine Negative (Negative); Blood,Urine Negative (Negative); Clarity,Urine Clear (Clear); Color,Urine Yellow (Yellow); Glucose,Urine (UA) Normal (Normal); Ketones,Urine Negative (Negative); Leukocyte Esterase,Urine Negative (Negative); Nitrite,Urine Negative (Negative); PH,Urine 5.5 pH Units (5.0-8.0); Protein,Urine Negative (Neg-Trace); Specific Gravity,Urine 1.021 (1.010-1.025); Urobilinogen,Urine Normal (Normal)
[2017-05-08] MEDS ORDERED: Furosemide 40 MG/4 ML VIAL IVP ONE (16:18)
[2017-05-08] MEDS ORDERED: *HR* HYDROcodone/Acet 10/325 mg TABLET PO ONE (17:46)
[2017-05-08] MEDS ORDERED: Naloxone 0.4 MG/ML INJ IVP PRN (20:53)
[2017-05-08] MEDS ORDERED: Ondansetron 4 MG/2 ML VIAL IVP PRN (20:53)
[2017-05-08] MEDS ORDERED: *HR* Morphine 2 MG/ML SYRINGE IVP PRN (20:53)
[2017-05-08] MEDS ORDERED: Acetaminophen 325 MG TABLET PO PRN (20:53)
[2017-05-08] MEDS ORDERED: D5% in Water 1,000 ML IVC PRN (21:23)
[2017-05-08] MEDS ORDERED: *HR* Dextrose 50 % in Water (Syg) 50 ML SYRINGE IVP PRN (21:23)
[2017-05-08] MEDS ORDERED: Dextrose Gel 15 GM PO PRN ×2 (21:23)
[2017-05-08] MEDS ORDERED: Insulin LISPRO 300 UNITS/3 ML VIAL SQ SCH (21:30)
[2017-05-08] MEDS ORDERED: Nitroglycerin 0.4 MG TAB.SUBL SL PRN (21:36)
[2017-05-08] MEDS ORDERED: Benzonatate 100 MG CAPSULE PO PRN (21:49)
--- NOTE | 2017-05-08 21:49 | Internal Med History&Physical ---
<Emmanuel Hughes - Last Filed: 05/08/17 22:35> Date of Encounter: 05/08/17 Time of Encounter: 20:30 Assessment and Plan (1) Acute exacerbation of CHF (congestive heart failure) Current visit: Yes Status: Acute Patient presents with acute exacerbation of CHF post discharge from hospital last week with diagnosis of pneumonia. Patient was discharged on by mouth Levaquin for pneumonia status two days ago. Patient reports becoming short of breath over the past 48 hours with worsening symptoms. 1-View CXR of the chest today shows CHF with mild interstitial/alveolar pulmonary edema. Patient given 20 IVP lasix followed by 40 IVP lasix in ED as well as DuoNeb tx. Will continue lasix IVP 40 mg BID and DuoNebs Q6 scheduled. Patient placed on continuous cardiac telemetry, supplemental O2 with SPO2 monitoring, and 40 mg Solu-Medrol twice a day ordered. Will continue patient's by mouth Levaquin 750 mg daily for pneumonia coverage. Cardiac diet ordered with 1.5 L fluid restriction daily. Monitor I&O and daily weight. Qualifiers: Congestive heart failure type: unspecified congestive heart failure type Qualified Code(s): I50.9 - Heart failure, unspecified (2) SOB (shortness of breath) Current visit: Yes Status: Acute Patient presents with acute SOB and dyspnea due to current acute exacerbation of CHF. Patient reports cough with no sputum production. Patient placed on supplemental O2 with titration if SPO2 is less than 92% and continuous SPO2 monitoring. DuoNebs every 6 scheduled. Tessalon 100 mg TID for cough. Will monitor patient and vital signs. Hold patient's PO steroids and administer 40 IVP Solu-Medrol twice a day. Falls/safety precautions for SOB and weakness. (3) Hyperkalemia Current visit: Yes Status: Acute Patient presents with acute hyperkalemia with potassium level of 4.7 on admission. Will monitor potassium level in a.m. labs. (4) Generalized weakness Current visit: Yes Status: Acute Patient presents with acute weakness from recent hospitalization and current acute exacerbation of CHF. Patient placed as falls precautions/up with assist/ bed rest with bedside commode with assist only due to SOB and weakness. (5) Hyperglycemia Current visit: Yes Status: Acute Patient presents with acute hyperglycemia and blood glucose of 102 on admission. Patient denies previous diabetes. Hyperglycemia most likely due to patient taking steroids. Will monitor blood glucose Q6 and administer low-dose correction insulin sliding scale with hypoglycemia protocol. A1c ordered in a.m. labs. (6) Anemia Current visit: Yes Status: Chronic Patient presents with chronic anemia with current Hgb of 9.9 and Hct of 31.6. These values are the same from 05/03/17. Patient's H/H values go up and down over the past two years. Patient denies any unusual bleeding. Will monitor H/H in follow-up labs. Qualifiers: Anemia type: unspecified type Qualified Code(s): D64.9 - Anemia, unspecified (7) CAD (coronary artery disease) Current visit: Yes Status: Chronic Patient presents with history of chronic coronary artery disease which is currently stable. Will continue patient's HTN and HLD medications and aspirin therapy. Patient is currently not on other anticoagulation. Patient placed on continuous cardiac telemetry. Initial troponin 0.03. Will trend x2. Qualifiers: Coronary Disease-Associated Artery/Lesion type: [place] artery [place] vs. transplanted heart: [place] heart Associated angina: with unstable angina Qualified Code(s): I25.110 - Atherosclerotic heart disease of [place] coronary artery with unstable angina pectoris (8) HLD (hyperlipidemia) Current visit: Yes Status: Chronic Patient presents with history of chronic hyperlipidemia. Lipid panel ordered and will continue patient's Lipitor. Qualifiers: Hyperlipidemia type: pure hypercholesterolemia Qualified Code(s): E78.00 - Pure hypercholesterolemia, unspecified; E78.0 - Pure hypercholesterolemia (9) HTN (hypertension) Current visit: Yes Status: Chronic Patient presents with history of chronic hypertension. Will monitor patient's vital signs and continue patient's lisinopril and Coreg. Qualifiers: Hypertension type: essential hypertension Qualified Code(s): I10 - Essential (primary) hypertension (10) CKD (chronic kidney disease) stage 3, GFR 30-59 ml/min Current visit: Yes Status: Chronic Patient presents with chronic kidney disease stage III with current GFR 59. We will use IV fluids judiciously if warranted and avoid nephrotoxic agents. Monitor I&O and daily weight. (11) DVT prophylaxis Current visit: Yes Status: Acute Patient to be placed on DVT prophylaxis due to current admission status and bed rest. Heparin 5,000 units SQ Q12 ordered. Internal Medicine - H&P: HPI Chief complaint: SOB/Dyspnea Admitted From: Emergency Dept Plans for Post Hospital Care: Home History of present illness: Ms. Nuñez is a 71 year old female with medical history of cardiomyopathy, CHF, CAD, HLD, HTN, and myocardial infarction (last one in 2003 with triple bypass) presents from the ED with chief complaint of shortness of breath, cough , and dyspnea over the past 48 hours. Patient reports she was discharged 2 days ago from the hospital after being treated for pneumonia and sent home on by mouth Levaquin. Clinical lab report shows pneumonia organism sensitive to levofloxacin. Patient reports she uses home oxygen but denies use of BiPAP or CPAP. Patient also reports weakness. Patient denies fever, chills, nausea, vomiting, headache, changes in vision, lightheadedness, dizziness, unusual bleeding, abdominal pain, chest pain, palpitations, pre-syncope, or syncope. On admission to ED, patient's vital signs are temperature of 98.5F, heart rate of 86 bpm, respiratory rate 20, BP of 148/71, and SPO2 98% on room air. Patient's abnormal labs include Hgb of 9.9 and HCT 31.6. Patient reports she has chronic anemia and these values are approximately at her baseline. Abnormal values include BUN of 34, glucose of 102, potassium of 4.7, GFR 59, D-dimer of 825, and BNP 3095. Patient's D-dimer is trending down from previous hospitalization last week when it was 1158. Initial troponin was 0.03. 1-View CXR of the chest today shows CHF with mild interstitial/alveolar pulmonary edema. On examination , patient has irregular heart beat/murmur and diminished breath sounds bilaterally on auscultation. No pedal edema present. Patient is hemodynamically stable and reports no acute distress. Information taken from patient, chart review, and previous medical records and imaging. Ms. Nuñez is at high risk for respiratory distress based on current symptoms, previous pneumonia history, and risk factors including recent tobacco cessation and will be placed as observation status. Time with patient greater than 40 minutes. Past Med Surg Social Fam HX - Past Medical History Source: patient Medical history: cardiomyopathy, CHF, coronary artery disease, hyperlipidemia, hypertension, myocardial infarction Psychiatric history: no psych history - Past Surgical History Surgical History: appendectomy, carotid endarterectomy, cholecystectomy, coronary bypass (CABG), hysterectomy - Social History Smoking Status: Former smoker Packs per day: 1/2 PPD - reports quitting 1 month ago Smokeless Tobacco Status: No Alcohol use: none Drug use: none Current living situation: Home, With Family Activity Level: Independent ambulation, Uses cane/walker Recent Out of Country Travel Within the Last 8 Weeks: No Exposure or Possible Exposure to Illness During Travel: No - Family History Father Race: Family Member Ethnicity: Non- Living Status: Age at : 65 Cause of : Stroke Hx Family Cardiac Disorders: Yes (Stroke, HTN) Mother Race: Family Member Ethnicity: Non- Living Status: Age at : 70 Cause of : [place] Hx Family Cardiac Disorders: Yes (CVA, [place], HTN) Hx Family Endocrine Disorder: Yes (DM) Brother Race: Family Member Ethnicity: Non- Living Status: Still Living Hx Family Cardiac Disorders: Yes (HD) Hx Family Endocrine Disorder: Yes (DM) Sister Race: Family Member Ethnicity: Non- Living Status: Still Living Hx Family Cardiac Disorders: Yes (HTN, [place]) Hx Family Endocrine Disorder: Yes (DM) Internal Medicine - H&P: Meds Atorvastatin [Lipitor] 10 mg PO HS 06/16/15 [History] Carvedilol Phosphate [Coreg Cr] 20 mg PO DAILY 06/16/15 [History] Famotidine [Pepcid] 40 mg PO BID 06/16/15 [History] Hydrocodone/Acetaminophen [[place]angle 10-325 Tablet] 1 tab PO Q4-6H PRN 06/16/15 [ History] Aspirin 81 mg PO DAILY #30 tab.chew 01/27/16 [Rx] Budesonide/Formoterol 160/4.5 [Symbicort 160/4.5] 2 puff IH BIDR #1 inhaler 02/05 [Rx] Furosemide [Lasix] 20 mg PO DAILY #30 tablet 01/27/16 [Rx] Nitroglycerin 0.4 mg SL Q5MIN PRN #20 tab.subl 01/27/16 [Rx] Lisinopril [Zestril] 5 mg PO DAILY 05/03/17 [History] Nicotine Patch [Nicoderm] 14 mg TD DAILY #28 patch 05/07/17 [Rx] levoFLOXacin [Levaquin] 750 mg PO DAILY #7 tablet 05/07/17 [Rx] predniSONE [PredniSONE] 10 mg PO DAILY #15 tablet 05/07/17 [Rx] 3 Allergy/AdvReac Type Severity Reaction Status Date / Time No Known Drug Allergies Allergy See Verified 05/08/17 14:02 Comments All Systems PM: A 10-system review of systems was performed and is negative for pertinent findings except as documented above in the HPI. - Constitutional Constitutional: as per HPI, weakness, no chills, no fever(s), no night sweats - EENT Eyes: no change in vision, no discharge, no pain, no photophobia Ears: no ear discharge, no ear pain, no tinnitus Nose, mouth and throat: no dysphagia, no nasal discharge, no neck pain, no sore throat - Breasts Breasts: as per HPI - Cardiovascular Cardiovascular ROS IM: as per HPI, dyspnea, dyspnea on exertion, irregular heart rhythm, no chest pain, no diaphoresis, no lightheadedness, no palpitations , no syncope - Respiratory Respiratory: as per HPI, cough, dyspnea, dyspnea on exertion - Gastrointestinal Gastrointestinal: no abdominal pain, no diarrhea, no hematemesis, no hematochezia, no melena, no nausea, no vomiting - Genitourinary Genitourinary: no change in urinary stream, no dysuria, no flank pain, no hematuria Menstruation: as per HPI, post hysterectomy (Total) - Musculoskeletal Musculoskeletal ROS IM: no numbness, no tingling - Integumentary Integumentary IM: no rash, no unusual bruising - Neurological Neurological ROS: no confusion, no convulsions, no focal weakness, no numbness, no tingling, no tremor(s) - Psychiatric Psychiatric: as per HPI - Endocrine Endocrine IM: as per HPI - Hematologic/Lymphatic Hematologic/Lymphatic: no easy bruising - Allergic/Immunologic Allergic/Immunologic: as per HPI - Constitutional Vitals: Temp Pulse Resp BP Pulse Ox 97.6 F 81 14 134/68 97 05/08/17 20:51 05/08/17 20:51 05/08/17 20:51 05/08/17 20:51 05/08/17 20:51 General appearance: Present: cooperative, A&O X 3, pleasant, no acute distress, underweight, answers questions appropriately - Head Head exam: Present: atraumatic, normocephalic - Eye Eye exam: Present: PERRL, conjuntiva pink, sclera anicteric Pupils: Present: PERRL - ENT ENT exam: Present: normal exam, normal external ear exam - Neck Neck exam general surgery: Present: normal inspection, supple, trachea midline - Respiratory Respiratory exam: Present: decreased breath sounds - Cardiovascular Cardiovascular exam: Present: irregular rhythm - GI/Abdominal GI/Abdominal exam: Present: normal bowel sounds, soft, no peritoneal signs. Absent: distended, tenderness - Rectal Rectal exam: Present: deferred - Additional comments: exam deferred. - Extremities Exam Extremities exam: Present: normal inspection, warm, radial pulses palpable and symmetrical. Absent: calf tenderness, cyanotic, pedal edema - Back Exam Back exam: Present: normal inspection - Neurological Exam Neurological exam: Present: alert, CN II-XII intact, oriented X3, no focal deficits. Absent: pronater drift, facial droop, speech deficit - Psychiatric Psychiatric exam: Present: normal affect, normal mood - Skin Skin exam: Present: dry, intact Internal Med - H&P Results - Labs CBC & Chem 7: 05/08/17 14:56 05/08/17 14:56 - EKG Data EKG shows normal: sinus rhythm - EKG Data Prior EKG available for review: yes EKG comments: 05/08/17 22:05 EKG dated 05/03/17 shows sinus rhythm with occasional supraventricular premature complexes, left ventricular hypertrophy. EKG dated 05/08/17 shows sinus rhythm with nonspecific ST and T-wave abnormality. <Jerrod Pfeiffer - Last Filed: 05/08/17 23:35> Date of Encounter: 05/08/17 Time of Encounter: 21:30 - Cardiovascular Cardiovascular ROS IM: dyspnea, dyspnea on exertion - Respiratory Respiratory: cough, dyspnea, no pain on inspiration, no pain with cough - Constitutional Vitals: Temp Pulse Resp BP Pulse Ox 97.6 F 81 14 134/68 97 05/08/17 20:51 05/08/17 20:51 05/08/17 20:51 05/08/17 20:51 05/08/17 20:51 - Head Head exam: Present: atraumatic, normal inspection - Eye Eye exam: Present: PERRL. Absent: scleral icterus - ENT ENT exam: Present: mucous membranes dry, normal exam - Neck Neck exam general surgery: Present: supple, trachea midline - Respiratory Respiratory exam: Present: decreased breath sounds, prolonged expiratory phase, rales (subtle rales in both bases), wheezes (scattered). Absent: accessory muscle use, chest wall tenderness - Cardiovascular Cardiovascular exam: Present: +S1, +S2. Absent: JVD - GI/Abdominal GI/Abdominal exam: Present: soft. Absent: tenderness - Extremities Exam Extremities exam: Present: warm. Absent: calf tenderness, pedal edema - Back Exam Back exam: Present: normal inspection. Absent: CVA tenderness (L), CVA tenderness (R) - Skin Skin exam: Absent: rash Internal Med - H&P Results - Labs CBC & Chem 7: 05/08/17 14:56 05/08/17 14:56 Labs: Cardiac Enzymes 05/08/17 Range/Units 21:45 Troponin I 0.04 H* (0-0.03) ng/mL - EKG Data -: EKG Interpreted by Myself EKG shows normal: sinus rhythm - Diagnostic Studies Chest x-ray Status: image reviewed by me (cardiomegaly; small bilateral effusions (left > right)) - Attending Attestation I discussed the patient [place], PMH, ROS, lab data, and exam findings with Garcia Hughes CNP. I then saw and examined patient independently as well. Patient does not appear to be fluid overloaded on exam grossly. However, by history and lab/xray findings, she is in CHF. She feels better after having had Lasix. Her EF on her last ECHO is ~40-45%. She denies history of COPD, but she is on chronic Prednisone and Symbicort. She is a former smoker. She remains on her Levaquin for treatment of her pneumonia. I agree with diuresis, continued antibiotics, steroids, and aerosols. She denies any chest pain; her only complaints have been SOB, cough, and wheezing. Other than my comments above and noted exam findings, I agree with Garcia's assessment and plan.
[2017-05-08] MEDS: Ipratropium/Albuterol Neb 3 ML IH SCH (22:36)
[2017-05-08] MEDS: Nicotine 14 MG PATCH.TD24 TD SCH (23:15)
[2017-05-08] MEDS: *HR* HYDROcodone/Acet 5/325 mg TABLET PO PRN (23:25)
[2017-05-08] MEDS: *HR* Heparin 5,000 UNIT/ML VIAL SQ SCH (23:25)
[2017-05-08] MEDS: Pantoprazole 40 MG VIAL IVP SCH (23:26)
[2017-05-09] MEDS: Insulin LISPRO 300 UNITS/3 ML VIAL SQ SCH ×5 (01:27→23:55)
[2017-05-09 04:08] LABS: Basophils % 0.2 %; Hematocrit 33.1 % (35.3-44.9); Hemoglobin 10.8 g/dL (11.5-15.4); Immature Granulocytes % 0.8 % (0-4); Lymphocytes % 14.1 %; Mean Corpuscular HGB Conc 32.6 g/dL (31.6-35.5); Mean Corpuscular Hemoglobin 30.3 pg (28.0-33.3); Mean Platelet Volume 10.9 fL (9.4-12.4); Monocytes # 0.6 K/mcL (0.0-1.3); Monocytes % 10.5 %; Neutrophils # 3.9 K/mcL (1.6-8.9); Nucleated Red Blood Cells 2.7 /100 WBC (0); Platelet Count 283 K/mcL (140-400); Red Blood Count 3.56 M/mcL (3.82-4.97); Red Cell Distribution Width 16.9 % (11.5-14.5); Segmented Neutrophils % 74.4 %
[2017-05-09 04:09] LABS: Lymphocytes # 0.8 K/mcL (0.6-4.6)
[2017-05-09 04:20] LABS: INR 1.3; Prothrombin Time 14.1 Seconds (9.4-12.1)
[2017-05-09] MEDS: Ipratropium/Albuterol Neb 3 ML IH SCH ×4 (04:22→22:35)
[2017-05-09 04:23] LABS: Activated Partial Thrombo Time 24.3 Seconds (26.0-36.0)
[2017-05-09 04:29] LABS: Albumin 3.3 g/dL (3.5-5.0); Bilirubin,Total 0.9 mg/dL (0.2-1.2); Calcium 8.8 mg/dL (8.6-10.8); Chol/HDL Ratio 3.2 (0-4.9); Globulin 3.4 g/dL (2.4-3.5); Magnesium 1.9 mg/dL (1.6-2.6); Total Protein 6.7 g/dL (6.0-8.3)
[2017-05-09 04:47] LABS: Potassium 3.6 mEq/L (3.5-4.5)
[2017-05-09] MEDS: *HR* HYDROcodone/Acet 5/325 mg TABLET PO PRN ×4 (06:05→22:17)
[2017-05-09] MEDS: MethylPREDNISolone 40 MG/ML VIAL IVP SCH ×2 (06:05→17:56)
[2017-05-09] MEDS: *HR* Heparin 5,000 UNIT/ML VIAL SQ SCH ×2 (06:09→20:12)
[2017-05-09] MEDS ORDERED: Insulin LISPRO 300 UNITS/3 ML VIAL SQ SCH (07:30)
[2017-05-09] MEDS: Furosemide 40 MG/4 ML VIAL IVP SCH ×2 (08:51→20:12)
[2017-05-09] MEDS: Pantoprazole 40 MG VIAL IVP SCH (08:51)
[2017-05-09] MEDS: levoFLOXacin 750 MG TABLET PO SCH (08:52)
[2017-05-09] MEDS: Aspirin Enteric Coated 81 MG Tablet PO SCH (08:52)
[2017-05-09] MEDS: Nicotine 14 MG PATCH.TD24 TD SCH (08:52)
--- NOTE | 2017-05-09 17:51 | Internal Med Progress Note ---
Date of Encounter: 05/09/17 Time of Encounter: 14:15 - Assessment and plan (1) Acute exacerbation of CHF (congestive heart failure) Current Visit: Yes Status: Acute Assessment and plan: Patient presents with acute exacerbation of CHF post discharge from hospital last week with diagnosis of pneumonia. Patient reports becoming short of breath over the past 48 hours with worsening symptoms after being discharged from the hospital. 1-View CXR of the chest today shows CHF with mild interstitial/ alveolar pulmonary edema. Will continue patient's by mouth Levaquin 750 mg daily for pneumonia coverage. Will continue lasix IVP 40 mg BID and DuoNebs Q6 scheduled. Continue telemetry Oxygen as needed to maintain sats greater than 92% Continuous pulse ox Cardiac diet/1.5 L fluid restriction Monitor I and O Daily weights Qualifiers: Congestive heart failure type: unspecified congestive heart failure type Qualified Code(s): I50.9 - Heart failure, unspecified (2) Generalized weakness Current Visit: Yes Status: Acute Assessment and plan: Patient reports weakness. Patient has been in the hospital for several days and is still ill. PT/OT consultations Bedrest Up with assistance Fall precautions (3) Hyperkalemia Current Visit: Yes Status: Acute (4) Anemia Current Visit: Yes Status: Chronic Assessment and plan: Hemoglobin and hematocrit are stable this time. Increase from prior admission. During last admission patient has positive guaiac and was to see GI for possible scope. She declined evaluation by GI due to stating that it does something to her heart. Continue to monitor and consider another consultation to GI if hemoglobin declines. Qualifiers: Anemia type: unspecified type Qualified Code(s): D64.9 - Anemia, unspecified (5) CAD (coronary artery disease) Current Visit: Yes Status: Chronic Assessment and plan: Patient presents with history of chronic coronary artery disease. Patient denies chest pain. Continue aspirin, beta kala, and statin. Patient is currently not on other anticoagulation. Patient placed on continuous cardiac telemetry. Qualifiers: Coronary Disease-Associated Artery/Lesion type: [place] artery [place] vs. transplanted heart: [place] heart Associated angina: with unstable angina Qualified Code(s): I25.110 - Atherosclerotic heart disease of [place] coronary artery with unstable angina pectoris (6) CKD (chronic kidney disease) stage 3, GFR 30-59 ml/min Current Visit: Yes Status: Chronic Assessment and plan: Serum creatinine 1.26 GFR 42. Continue to avoid nephrotoxins. Monitor labs (7) HLD (hyperlipidemia) Current Visit: Yes Status: Chronic Assessment and plan: Chronic. Continue home medications. Qualifiers: Hyperlipidemia type: pure hypercholesterolemia Qualified Code(s): E78.00 - Pure hypercholesterolemia, unspecified; E78.0 - Pure hypercholesterolemia (8) HTN (hypertension) Current Visit: Yes Status: Chronic Assessment and plan: Hypertension is well controlled. Continue home medication Qualifiers: Hypertension type: essential hypertension Qualified Code(s): I10 - Essential (primary) hypertension (9) DVT prophylaxis Current Visit: Yes Status: Acute Assessment and plan: Heaprin SQ - Time Spent With Patient less than 15 minutes - Subjective Interval history: Pt was seen and assessed at 1415. She is alert, oriented, and states that she feels fine. Continue current treatment. - Constitutional Vitals: Temp Pulse Resp BP Pulse Ox 97.7 F 79 14 99/59 98 05/09/17 16:13 05/09/17 16:13 05/09/17 16:13 05/09/17 16:13 05/09/17 16:13 General appearance: Present: cooperative, A&O X 3, pleasant, no acute distress, underweight, answers questions appropriately - Head Head exam: Present: atraumatic, normal inspection, normocephalic - Eye Eye exam: Present: normal appearance, conjuntiva pink, sclera anicteric - Neck Neck exam general surgery: Present: normal inspection, supple, trachea midline. Absent: lymphadenopathy, tenderness - Respiratory Respiratory exam: Present: CTAB. Absent: accessory muscle use, chest wall tenderness, rales, respiratory distress, rhonchi, wheezes - Cardiovascular Cardiovascular exam: Present: RRR, +S1, +S2. Absent: diastolic murmur, gallop, rubs, systolic murmur - GI/Abdominal GI/Abdominal exam: Present: normal bowel sounds, soft. Absent: distended, hepatomegaly, tenderness - Extremities Exam Extremities exam: Present: normal capillary refill, warm, radial pulses palpable and symmetrical. Absent: calf tenderness, cyanotic, pedal edema, tenderness - Neurological Exam Neurological exam: Present: oriented X3, no focal deficits. Absent: facial droop, speech deficit - Skin Skin exam: Present: dry, intact, normal color, warm Internal Medicine: Result - Labs CBC & Chem 7: 05/09/17 03:51 05/09/17 03:51 Labs: Short CBC 05/09/17 Range/Units 03:51 WBC 5.3 D (4.3-11.1) K/mcL Hgb 10.8 L (11.5-15.4) g/dL Hct 33.1 L (35.3-44.9) % Plt Count 283 (140-400) K/mcL Neutrophils # 3.9 (1.6-8.9) K/mcL BMP 05/09/17 03:51 Sodium 137 Potassium 3.6 D Chloride 99 Carbon Dioxide 27 BUN 40 H Creatinine 1.26 H Glucose 162 H Calcium 8.8 Cardiac Enzymes 05/08/17 05/09/17 Range/Units 21:45 03:51 Troponin I 0.04 H* 0.03 (0-0.03) ng/mL Liver Function 05/09/17 Range/Units 03:51 Total Bilirubin 0.9 (0.2-1.2) mg/dL AST 82 H (5-34) Units/L ALT 138 H (0-55) Units/L Alkaline Phosphatase 75 (38-126) Units/L Albumin 3.3 L (3.5-5.0) g/dL - ABG Interpretation ABG results: PT/INR, D-dimer PT 14.1 Seconds (9.4-12.1) H 05/09/17 03:51 D-Dimer 825 ng/mLFEU (0-500) H 05/08/17 19:30 Consult Discharge Plan - Plan Referrals: Teo Kim MD [Primary Care Provider] -
[2017-05-10] MEDS: Ipratropium/Albuterol Neb 3 ML IH SCH ×4 (04:35→21:46)
[2017-05-10 05:31] LABS: Basophils % 0.1 %; Hematocrit 35.1 % (35.3-44.9); Hemoglobin 11.6 g/dL (11.5-15.4); Immature Granulocytes % 0.8 % (0-4); Lymphocytes # 0.7 K/mcL (0.6-4.6); Lymphocytes % 7.7 %; Mean Corpuscular Hemoglobin 30.2 pg (28.0-33.3); Mean Corpuscular Volume 91.4 fL (83.0-100.0); Mean Platelet Volume 11.5 fL (9.4-12.4); Monocytes % 10.7 %; Neutrophils # 7.2 K/mcL (1.6-8.9); Nucleated Red Blood Cells 0.9 /100 WBC (0); Platelet Count 319 K/mcL (140-400); Red Blood Count 3.84 M/mcL (3.82-4.97); Red Cell Distribution Width 16.7 % (11.5-14.5); Segmented Neutrophils % 80.7 %
[2017-05-10 05:46] LABS: Calcium 8.2 mg/dL (8.6-10.8)
[2017-05-10 06:11] LABS: Potassium 3.9 mEq/L (3.5-4.5)
[2017-05-10] MEDS: Insulin LISPRO 300 UNITS/3 ML VIAL SQ SCH ×3 (06:11→17:32)
[2017-05-10] MEDS: MethylPREDNISolone 40 MG/ML VIAL IVP SCH ×2 (06:20→17:32)
[2017-05-10] MEDS: *HR* Heparin 5,000 UNIT/ML VIAL SQ SCH ×2 (06:20→17:32)
[2017-05-10] MEDS: Nicotine 14 MG PATCH.TD24 TD SCH (08:37)
[2017-05-10] MEDS: Furosemide 40 MG/4 ML VIAL IVP SCH ×2 (08:38→20:57)
[2017-05-10] MEDS: Aspirin Enteric Coated 81 MG Tablet PO SCH (08:40)
[2017-05-10] MEDS: Pantoprazole 40 MG VIAL IVP SCH (08:41)
[2017-05-10] MEDS: *HR* HYDROcodone/Acet 5/325 mg TABLET PO PRN ×2 (13:30→20:56)
--- NOTE | 2017-05-10 16:38 | Internal Med Progress Note ---
Date of Encounter: 05/10/17 Time of Encounter: 14:00 - Assessment and plan (1) Acute exacerbation of CHF (congestive heart failure) Current Visit: Yes Status: Acute Assessment and plan: Patient presents with acute exacerbation of CHF post discharge from hospital last week with diagnosis of pneumonia. Patient reports becoming short of breath over the past 48 hours with worsening symptoms after being discharged from the hospital. 1-View CXR of the chest today shows CHF with mild interstitial/ alveolar pulmonary edema. Will continue patient's by mouth Levaquin 750 mg daily for pneumonia coverage. Echo in 02/05 shows LVEF 40-45% with global LV systolic dysfunction and moderate LV DD, mild-moderate mitral steosis, moderate AR. Will continue lasix IVP 40 mg BID and DuoNebs Q6 scheduled. Continue telemetry Oxygen as needed to maintain sats greater than 92% Continuous pulse ox Cardiac diet/1.5 L fluid restriction Monitor I and O Daily weights Qualifiers: Congestive heart failure type: unspecified congestive heart failure type Qualified Code(s): I50.9 - Heart failure, unspecified (2) Generalized weakness Current Visit: Yes Status: Acute Assessment and plan: Patient reports increasing weakness, most likely due to CHF and pneumonia and anemia and deconditioning from admissions. PT and OT consults pending. PT/OT consultations Bedrest Up with assistance Fall precautions (3) Hyperkalemia Current Visit: Yes Status: Resolved (4) Anemia Current Visit: Yes Status: Chronic Assessment and plan: Hemoglobin and hematocrit are stable this time. Increase from prior admission and increase since this admission. During last admission patient has positive guaiac and was to see GI for possible scope. She declined evaluation by GI due to stating that it does something to her heart. Pt was started on Iron during last admission, CHACHA. Continue to monitor and consider another consultation to GI if hemoglobin declines. Qualifiers: Anemia type: unspecified type Qualified Code(s): D64.9 - Anemia, unspecified (5) CAD (coronary artery disease) Current Visit: Yes Status: Chronic Assessment and plan: Pt denies chest pain. Patient presents with history of chronic coronary artery disease. Continue aspirin, beta kala, and statin. Patient is currently not on other anticoagulation. Patient placed on continuous cardiac telemetry. Qualifiers: Coronary Disease-Associated Artery/Lesion type: [place] artery [place] vs. transplanted heart: [place] heart Associated angina: with unstable angina Qualified Code(s): I25.110 - Atherosclerotic heart disease of [place] coronary artery with unstable angina pectoris (6) CKD (chronic kidney disease) stage 3, GFR 30-59 ml/min Current Visit: Yes Status: Chronic Assessment and plan: Serum creatinine 1.63 GFR 31. Continue to avoid nephrotoxins. Monitor labs. INcreasing due to diuresis, will decrease Lasix to 40mg IV daily. (7) HLD (hyperlipidemia) Current Visit: Yes Status: Chronic Assessment and plan: Chronic. Continue home medications. Qualifiers: Hyperlipidemia type: pure hypercholesterolemia Qualified Code(s): E78.00 - Pure hypercholesterolemia, unspecified; E78.0 - Pure hypercholesterolemia (8) HTN (hypertension) Current Visit: Yes Status: Chronic Assessment and plan: Hypertension is well controlled. Continue home medication Qualifiers: Hypertension type: essential hypertension Qualified Code(s): I10 - Essential (primary) hypertension (9) DVT prophylaxis Current Visit: Yes Status: Acute Assessment and plan: Heaprin SQ - Time Spent With Patient less than 15 minutes - Subjective Interval history: Pt was seen and assessed at 1400. She is alert, oriented, and states that she feels fine. She reports some SOB with exertion when she walks to the bathroom. Continue current treatment. - Constitutional Vitals: Temp Pulse Resp BP Pulse Ox 97.8 F 72 15 91/57 94 05/10/17 15:35 05/10/17 15:35 05/10/17 15:35 05/10/17 15:35 05/10/17 15:35 General appearance: Present: cooperative, A&O X 3, pleasant, no acute distress, underweight, answers questions appropriately. Absent: mild distress, severe distress - Head Head exam: Present: atraumatic, normal inspection, normocephalic - Eye Eye exam: Present: normal appearance, conjuntiva pink, sclera anicteric - Neck Neck exam general surgery: Present: normal inspection, supple, trachea midline. Absent: lymphadenopathy, tenderness - Respiratory Respiratory exam: Present: decreased breath sounds, CTAB. Absent: accessory muscle use, chest wall tenderness, rales, rhonchi, wheezes - Cardiovascular Cardiovascular exam: Present: RRR, +S1, +S2. Absent: diastolic murmur, gallop, rubs, systolic murmur - GI/Abdominal GI/Abdominal exam: Present: normal bowel sounds, soft. Absent: distended, hepatomegaly, tenderness - Extremities Exam Extremities exam: Present: normal inspection, warm, radial pulses palpable and symmetrical. Absent: calf tenderness, cyanotic, pedal edema, tenderness - Neurological Exam Neurological exam: Present: alert, oriented X3, no focal deficits. Absent: facial droop, speech deficit - Skin Skin exam: Present: dry, intact, normal color, warm. Absent: rash Internal Medicine: Result - Labs CBC & Chem 7: 05/10/17 05:22 05/10/17 05:22 - ABG Interpretation ABG results: PT/INR, D-dimer PT 14.1 Seconds (9.4-12.1) H 05/09/17 03:51 D-Dimer 825 ng/mLFEU (0-500) H 05/08/17 19:30 - VTE Documentation of Mechanical Device: Graduated compression elastic hosiery Consult Discharge Plan - Plan Referrals: Teo Kim MD [Primary Care Provider] -
--- NOTE | 2017-05-10 21:47 | Electrocardiograph Report ---
[place] [id number] Test Date: 2017-05-08 Pat Name: Francesca Nuñez Department: 105 Room: 3B63 Gender: F [employer] Manager: : 1945 Requested By: Emiliano Shepard Order Number: [id number] Reading MD: Shmuel Abreu MD Measurements Intervals [place] Rate: 83 P: 59 GA: 142 QRS: 80 QRSD: 108 T: 13 QT: 405 QTc: 445 Interpretive Statements SINUS RHYTHM BASELINE ARTIFACT Electronically Signed On 05-10-2017 21:45:37 EDT by Shmuel Abreu MD
[2017-05-11] MEDS: Insulin LISPRO 300 UNITS/3 ML VIAL SQ SCH ×3 (00:38→12:49)
[2017-05-11] MEDS: Ipratropium/Albuterol Neb 3 ML IH SCH ×3 (04:04→15:49)
[2017-05-11] MEDS: *HR* HYDROcodone/Acet 5/325 mg TABLET PO PRN ×3 (04:25→16:03)
[2017-05-11] MEDS: *HR* Heparin 5,000 UNIT/ML VIAL SQ SCH (05:33)
[2017-05-11] MEDS: MethylPREDNISolone 40 MG/ML VIAL IVP SCH (05:34)
[2017-05-11 08:40] LABS: Basophils % 0.1 %; Hematocrit 34.9 % (35.3-44.9); Hemoglobin 11.3 g/dL (11.5-15.4); Immature Granulocytes % 0.7 % (0-4); Lymphocytes # 0.7 K/mcL (0.6-4.6); Lymphocytes % 7.8 %; Mean Corpuscular HGB Conc 32.4 g/dL (31.6-35.5); Mean Corpuscular Hemoglobin 29.6 pg (28.0-33.3); Mean Corpuscular Volume 91.4 fL (83.0-100.0); Mean Platelet Volume 11.5 fL (9.4-12.4); Monocytes # 0.7 K/mcL (0.0-1.3); Monocytes % 7.8 %; Nucleated Red Blood Cells 0.4 /100 WBC (0); Platelet Count 262 K/mcL (140-400); Red Blood Count 3.82 M/mcL (3.82-4.97); Segmented Neutrophils % 83.6 %
[2017-05-11 08:55] LABS: Calcium 7.6 mg/dL (8.6-10.8); Potassium 3.8 mEq/L (3.5-4.5)
[2017-05-11] MEDS ORDERED: Furosemide 40 MG/4 ML VIAL IVP SCH (09:00)
[2017-05-11] MEDS: Nicotine 14 MG PATCH.TD24 TD SCH (09:29)
[2017-05-11] MEDS: Furosemide 40 MG/4 ML VIAL IVP SCH (09:29)
[2017-05-11] MEDS: levoFLOXacin 750 MG TABLET PO SCH (09:29)
[2017-05-11] MEDS: Pantoprazole 40 MG VIAL IVP SCH (09:29)
[2017-05-11] MEDS: Aspirin Enteric Coated 81 MG Tablet PO SCH (09:29)
[2017-05-11 11:58] LABS: Hemoglobin A1C 5.8 %
[2017-05-11 14:47] VITALS: BP 90/56
--- NOTE | 2017-05-11 14:58 | Discharge Summary ---
Date of Encounter: 05/11/17 Time of Encounter: 14:53 - Discharge Diagnosis (1) Acute exacerbation of CHF (congestive heart failure) Priority: Primary Status: Acute Comments: Symptomatic with worsening shortness of breath for 48 hours prior to admission. BNP 3K. CXR shows CHF with mild interstitial/alveolar pulmonary edema. 01/2016 TTE with 40-45% with global LV systolic dysfunction and moderate LV DD, mild- moderate mitral steosis, moderate AR. Home Lasix initially held and she was diuresed with IV Lasix. Appears euvolemic on exam. Resume home Lasix. Will need to follow-up with PCP in 3-5 days. Qualifiers: Congestive heart failure type: diastolic Qualified Code(s): I50.33 - Acute on chronic diastolic (congestive) heart failure (2) Community acquired bacterial pneumonia Priority: Primary Status: Acute Comments: 05/03/2017 chest CTA showed peribronchial thickening and scattered mild airspace disease to right lung, concerning for bronchiolitis, pneumonitis. Afebrile, no elevated WBC, no wheezing on exam. She was treated with IV azithromycin and Rocephin on last admission and discharged home on Levaquin. Chart reviewed and patient has received 3 doses of by mouth Levaquin will continue for a total course of 10 days. Recommend follow-up with PCP in 3-5 days. (3) Chronic back pain Priority: Primary Status: Acute Comments: per hx. patient reports missing appointment with pain management on days discharge as she was in hospital. [place] reviewed on 05/11/2017 and patient does have active Rx for Vicodin 10/325. Will provide Rx for 1 week worth the pain medication. Qualifiers: Back pain location: low back pain Back pain laterality: bilateral Sciatica presence: without sciatica Qualified Code(s): M54.5 - Low back pain; G89.29 - Other chronic pain (4) Anemia Priority: Primary Status: Acute Comments: per hx. Had positive guaiac stool last admission. Plans was for GI to and possible scope however patient declined. Hgb 11.3 at time of discharge (which is improved from baseline). Cont home Fe supplement. Recommend follow-up with PCP in 3-5 days Qualifiers: Anemia type: iron deficiency Qualified Code(s): D50.8 - Other iron deficiency anemias (5) CKD (chronic kidney disease) stage 3, GFR 30-59 ml/min Priority: Primary Status: Acute Comments: Serum creatinine 1.26 GFR 42. Levaquin was renally dised and nephrotoxins avoided. Recommend follow-up with PCP in 3-5 days (6) DVT prophylaxis Priority: Secondary Status: Acute Comments: heparin - Discharge Medications Home Medications: Atorvastatin [Lipitor] 10 mg PO HS 06/16/15 [History] Carvedilol Phosphate [Coreg Cr] 20 mg PO DAILY 06/16/15 [History] Famotidine [Pepcid] 40 mg PO BID 06/16/15 [History] Hydrocodone/Acetaminophen [[place] 10-325 Tablet] 1 tab PO Q4-6H PRN 06/16/15 [ History] Aspirin 81 mg PO DAILY #30 tab.chew 01/27/16 [Rx] Budesonide/Formoterol 160/4.5 [Symbicort 160/4.5] 2 puff IH BIDR #1 inhaler 02/05 [Rx] Furosemide [Lasix] 20 mg PO DAILY #30 tablet 01/27/16 [Rx] Nitroglycerin 0.4 mg SL Q5MIN PRN #20 tab.subl 01/27/16 [Rx] Lisinopril [Zestril] 5 mg PO DAILY 05/03/17 [History] Nicotine Patch [Nicoderm] 14 mg TD DAILY #28 patch 05/07/17 [Rx] levoFLOXacin [Levaquin] 750 mg PO DAILY #7 tablet 05/07/17 [Rx] predniSONE [PredniSONE] 10 mg PO DAILY #15 tablet 05/07/17 [Rx] Allergies/Adverse Reactions: 3 Allergy/AdvReac Type Severity Reaction Status Date / Time No Known Drug Allergies Allergy See Verified 05/09/17 10:08 Comments Date of admission: 05/10/17 12:50 Primary care physician: Teo Kim Discharging clinician: Yodit Miller Anticipated date of discharge: 05/11/17 - Patient Status Disposition: Home Health Service Condition: Fair Functional capacity at discharge: uses cane/walker Overall status at discharge: patient is back to baseline - Discharge Instructions Follow Up With: Teo Kim MD [Primary Care Provider] - (Please follow-up with your doctor in 3-5 days) - Diet and Activity Activity: ambulate only with your walker, resume usual activities as tolerated Diet: regular diet Hospital course: Ms. Nuñez is a 71 year old female - Time Spent with Patient Total time spent providing and/or coordinating discharge services: - Constitutional Vitals: Temp Pulse Resp BP Pulse Ox 98.0 F 78 15 90/56 95 05/11/17 14:43 05/11/17 14:43 05/11/17 14:43 05/11/17 14:43 05/11/17 14:43 General appearance: Present: cooperative, A&O X 3, pleasant, no acute distress, underweight, answers questions appropriately. Absent: mild distress, severe distress - VTE Documentation of Mechanical Device: Graduated compression elastic hosiery
--- NOTE | 2017-05-11 15:38 | Discharge Summary ---
Date of Encounter: 05/11/17 Time of Encounter: 15:38 - Discharge Diagnosis (1) Acute exacerbation of CHF (congestive heart failure) Priority: Primary Status: Acute Qualifiers: Congestive heart failure type: diastolic Qualified Code(s): I50.33 - Acute on chronic diastolic (congestive) heart failure (2) Community acquired bacterial pneumonia Priority: Primary Status: Acute (3) Chronic back pain Priority: Primary Status: Acute Qualifiers: Back pain location: low back pain Back pain laterality: bilateral Sciatica presence: without sciatica Qualified Code(s): M54.5 - Low back pain; G89.29 - Other chronic pain (4) Anemia Priority: Primary Status: Acute Qualifiers: Anemia type: iron deficiency Qualified Code(s): D50.8 - Other iron deficiency anemias (5) CKD (chronic kidney disease) stage 3, GFR 30-59 ml/min Priority: Primary Status: Acute (6) DVT prophylaxis Priority: Secondary Status: Acute - Discharge Medications Prescriptions: levoFLOXacin [Levaquin] 750 mg PO DAILY #7 tablet Home Medications: Atorvastatin [Lipitor] 10 mg PO HS 06/16/15 [History] Carvedilol Phosphate [Coreg Cr] 20 mg PO DAILY 06/16/15 [History] Famotidine [Pepcid] 40 mg PO BID 06/16/15 [History] Hydrocodone/Acetaminophen [[place] 10-325 Tablet] 1 tab PO Q4-6H PRN 06/16/15 [ History] Aspirin 81 mg PO DAILY #30 tab.chew 01/27/16 [Rx] Budesonide/Formoterol 160/4.5 [Symbicort 160/4.5] 2 puff IH BIDR #1 inhaler 02/05 [Rx] Furosemide [Lasix] 20 mg PO DAILY #30 tablet 01/27/16 [Rx] Nitroglycerin 0.4 mg SL Q5MIN PRN #20 tab.subl 01/27/16 [Rx] Lisinopril [Zestril] 5 mg PO DAILY 05/03/17 [History] Nicotine Patch [Nicoderm] 14 mg TD DAILY #28 patch 05/07/17 [Rx] predniSONE [PredniSONE] 10 mg PO DAILY #15 tablet 05/07/17 [Rx] levoFLOXacin [Levaquin] 750 mg PO DAILY #7 tablet 09/19/17 [Rx] Allergies/Adverse Reactions: 3 Allergy/AdvReac Type Severity Reaction Status Date / Time No Known Drug Allergies Allergy See Verified 05/09/17 10:08 Comments Date of admission: 05/10/17 12:50 Primary care physician: Teo Kim - Patient Status Disposition: Home Health Service Condition: Fair - Discharge Instructions Follow Up With: Teo Kim MD [Primary Care Provider] - (Please follow-up with your doctor in 3-5 days) Hospital course: Ms. Nuñez is a 71 year old female - Time Spent with Patient Total time spent providing and/or coordinating discharge services: - Constitutional Vitals: Temp Pulse Resp BP Pulse Ox 98.0 F 78 15 90/56 95 05/11/17 14:43 05/11/17 14:43 05/11/17 14:43 05/11/17 14:43 05/11/17 14:43 General appearance: Present: cooperative, A&O X 3, pleasant, no acute distress, underweight, answers questions appropriately. Absent: mild distress, severe distress - VTE Documentation of Mechanical Device: Graduated compression elastic hosiery
--- NOTE | 2017-05-11 15:55 | Physician Discharge Referral ---
Home Health/Hosp Referral Info Transfer to: Home Health Attending Provider: Yodit Miller CNP - Diagnosis (1) Acute exacerbation of CHF (congestive heart failure) Status: Acute (2) Community acquired bacterial pneumonia Status: Acute (3) Chronic back pain Status: Acute (4) Anemia Status: Acute (5) CKD (chronic kidney disease) stage 3, GFR 30-59 ml/min Status: Acute (6) DVT prophylaxis Status: Acute - Respiratory Orders Smoking Cessation: Smoking cessation has been advised. For more information, call the [place] [employer] Quit Line at 3-857-MCPI-NOW. - Diet/Nutrition Diet/Nutrition Orders: Regular - Activity Activity Orders: Up ad rosaline, Walker - Services Needed Following services are medically necessary services: Nursing, Physical Therapy - Transfer Medications Prescriptions: levoFLOXacin [Levaquin] 750 mg PO DAILY #7 tablet Home Medications: Atorvastatin [Lipitor] 10 mg PO HS 06/16/15 [History] Carvedilol Phosphate [Coreg Cr] 20 mg PO DAILY 06/16/15 [History] Famotidine [Pepcid] 40 mg PO BID 06/16/15 [History] Hydrocodone/Acetaminophen [[place] 10-325 Tablet] 1 tab PO Q4-6H PRN 06/16/15 [ History] Aspirin 81 mg PO DAILY #30 tab.chew 01/27/16 [Rx] Budesonide/Formoterol 160/4.5 [Symbicort 160/4.5] 2 puff IH BIDR #1 inhaler 02/05 [Rx] Furosemide [Lasix] 20 mg PO DAILY #30 tablet 01/27/16 [Rx] Nitroglycerin 0.4 mg SL Q5MIN PRN #20 tab.subl 01/27/16 [Rx] Lisinopril [Zestril] 5 mg PO DAILY 05/03/17 [History] Nicotine Patch [Nicoderm] 14 mg TD DAILY #28 patch 05/07/17 [Rx] predniSONE [PredniSONE] 10 mg PO DAILY #15 tablet 05/07/17 [Rx] levoFLOXacin [Levaquin] 750 mg PO DAILY #7 tablet 05/11/17 [Rx] Allergies/Adverse Reactions: 3 Allergy/AdvReac Type Severity Reaction Status Date / Time No Known Drug Allergies Allergy See Verified 05/09/17 10:08 Comments Certification: Further, I certify that my clinical findings support that this patient is homebound (i.e. absences from home require considerable and taxing effort and are for medical reasons or gnosticist services or infrequently or short duration when for other reasons) because: Homebound Reason: Leaving home requires considerable and taxing effort due to condition Attestation: My signature below is to certify that this patient is under my care and that I, or nurse practitioner, or a physician's library assistant working with me, has a face-to -face encounter with this patient.
== END 2017-05-11 18:30 | disposition home health service (06) | DRG 291 ==
LOC: EMEROO 13:56 → 3BNU 13:56
PROVIDERS: ADMIT Nurse Practitioner Family; ATTEND Registered Nurse

== ENCOUNTER 2018-06-16 13:36 | Observation (INO) ==
--- NOTE | 2018-06-16 13:49 | Emergency Department Note ---
Disposition Clinical Impression: Atypical chest pain, Weakness, Failure to thrive Disposition: Admitted As Inpatient Condition: Fair General Adult HPI - General Chief complaint: ED Chest Pain Stated complaint: Chest Tightes Time Seen by Provider: 06/16/18 13:41 Source: EMS Limitations: no limitations - History of Present Illness Pain Scale: 7 - Related Data Home Medications Medication Instructions Recorded Confirmed RX: Atorvastatin [Lipitor] 10 mg PO HS 06/16/15 06/16/18 RX: Hydrocodone/Acetaminophen 1 tab PO Q4-6H PRN 06/16/15 06/16/18 [[employer] 10-325 Tablet] RX: Lisinopril [Zestril] 5 mg PO DAILY 05/03/17 06/16/18 Cholecalciferol (D-3) [Vitamin D] 2,000 unit PO DAILY 06/16/18 06/16/18 Ferrous Sulfate [Iron] 325 mg PO DAILY 06/16/18 06/16/18 Fish Oil/Dha/Epa [Fish Oil 1,200 1 cap PO DAILY 06/16/18 06/16/18 mg Fish Oil] Furosemide [Lasix] 20 mg PO DAILY 06/16/18 06/16/18 Mv,Fe,Min/Lutein [A Thru Z Select 1 tab PO DAILY 06/16/18 06/16/18 Women's Tablet] Oxybutynin Chloride [Ditropan Xl] 5 mg PO DAILY 06/16/18 06/16/18 Potassium Chloride [K-Tab ER] 20 meq PO DAILY 06/16/18 06/16/18 RX: Carvedilol 12.5 mg PO BID 06/16/18 06/16/18 RX: Folic Acid 1 mg PO DAILY 06/16/18 06/16/18 RX: traZODone [TraZODone] 50 mg PO HS 06/16/18 06/16/18 Previous Rx's Medication Instructions Recorded RX: Aspirin 81 mg PO DAILY #30 tab.chew 01/27/16 RX: Nitroglycerin 0.4 mg SL Q5MIN PRN #20 tab.subl 01/27/16 Allergies Allergy/AdvReac Type Severity Reaction Status Date / Time No Known Drug Allergies Allergy See Verified 05/09/17 10:08 Comments Past Medical History - Past Medical History Medical history: Reports: cardiomyopathy, CHF, coronary artery disease, hyperlipidemia, hypertension, myocardial infarction Surgical history: Reports: appendectomy, carotid endarterectomy, cholecystectomy, coronary bypass (CABG), hysterectomy Psychiatric history: Reports: no psych history AIR QUALITY CONSULTANT history: Reports: no AIR QUALITY CONSULTANT history - Social History Smoking Status: Former smoker Smokeless Tobacco Status: No Alcohol use: Reports: none Drug use: Reports: none Physical Exam - General Limitations: no limitations General appearance: alert, in no apparent distress Course Vital Signs Temperature 97.9 F 06/16/18 13:37 Pulse Rate 74 06/16/18 13:37 Respiratory Rate 20 06/16/18 13:37 Blood Pressure 139/59 06/16/18 13:37 O2 Sat by Pulse Oximetry 97 06/16/18 13:37 Temperature 98.0 F 06/17/18 12:16 Pulse Rate 68 06/17/18 12:16 Respiratory Rate 18 06/17/18 12:16 Blood Pressure 127/58 06/17/18 12:16 O2 Sat by Pulse Oximetry 98 06/17/18 12:16 Oxygen Delivery Oxygen Delivery Room Air Medical Decision Making - Lab Data Result diagrams: 06/17/18 01:35 06/17/18 01:35 Lab Results 06/16/18 06/16/18 06/16/18 Range/Units 14:26 14:26 14:26 WBC 5.7 (4.3-11.1) K/mcL RBC 3.50 L (3.82-4.97) M/mcL Hgb 11.4 L (11.5-15.4) g/dL Hct 35.1 L (35.3-44.9) % MCV 100.3 H (83.0-100.0) fL MCH 32.6 (28.0-33.3) pg MCHC 32.5 (31.6-35.5) g/dL RDW 19.4 H (11.5-14.5) % Plt Count 249 (140-400) K/mcL MPV 12.4 (9.4-12.4) fL Immature Gran % 0.3 (0-4) % Seg Neutrophils % 47.0 % Lymphocytes % 41.6 % Monocytes % 10.5 % Eosinophils % 0.3 % Basophils % 0.3 % Neutrophils # 2.7 (1.6-8.9) K/mcL Lymphocytes # 2.4 (0.6-4.6) K/mcL Monocytes # 0.6 (0.0-1.3) K/mcL Eosinophils # 0.0 (0.0-0.6) K/mcL Basophils # 0.0 (0.0-0.2) K/mcL Platelet Estimate Normal (Normal) Poikilocytosis 1+ A (Not Present) Anisocytosis 1+ A (Not Present) Target Cells 1+ A (Not Present) Sodium 139 (136-145) mEq/L Potassium 4.0 (3.5-5.1) mEq/L Chloride 104 (98-107) mEq/L Carbon Dioxide 26 (23-29) mEq/L BUN 23 (8-23) mg/dL Creatinine 1.09 (0.60-1.20) mg/dL Est GFR ( Amer) 60 (> 60) Est GFR (Non-Af Amer) 49 L (> 60) BUN/Creatinine Ratio 21 (6-26) Glucose 110 H (70-105) mg/dL Calculated Osmolality 292 (280-300) Calcium 9.9 (8.6-10.3) mg/dL Troponin I 0.03 (< 0.04) ng/mL B-Natriuretic Peptide 775 H (Less than 100) pg/mL Urine Color (Yellow) Urine Clarity (Clear) Urine pH (5.0-8.0) pH Units Ur Specific [place] (1.010-1.025) Urine Protein (Neg-Trace) mg/dL Urine Glucose (UA) (Normal) mg/dL Urine Ketones (Negative) mg/dL Urine Blood (Negative) Urine Nitrite (Negative) Urine Bilirubin (Negative) Urine Urobilinogen (Normal) mg/dL Ur Leukocyte Esterase (Negative) Urine Microscopic RBC (0-3) per hpf Urine Microscopic WBC (0-3) per hpf Ur Squamous Epith Cells (None-Few) per lpf Urine Bacteria (None-Few) per hpf Hyaline Casts (None-Few) per lpf Ur Culture Indicated? (NO) 06/16/18 Range/Units 15:48 WBC (4.3-11.1) K/mcL RBC (3.82-4.97) M/mcL Hgb (11.5-15.4) g/dL Hct (35.3-44.9) % MCV (83.0-100.0) fL MCH (28.0-33.3) pg MCHC (31.6-35.5) g/dL RDW (11.5-14.5) % Plt Count (140-400) K/mcL MPV (9.4-12.4) fL Immature Gran % (0-4) % Seg Neutrophils % % Lymphocytes % % Monocytes % % Eosinophils % % Basophils % % Neutrophils # (1.6-8.9) K/mcL Lymphocytes # (0.6-4.6) K/mcL Monocytes # (0.0-1.3) K/mcL Eosinophils # (0.0-0.6) K/mcL Basophils # (0.0-0.2) K/mcL Platelet Estimate (Normal) Poikilocytosis (Not Present) Anisocytosis (Not Present) Target Cells (Not Present) Sodium (136-145) mEq/L Potassium (3.5-5.1) mEq/L Chloride (98-107) mEq/L Carbon Dioxide (23-29) mEq/L BUN (8-23) mg/dL Creatinine (0.60-1.20) mg/dL Est GFR ( Amer) (> 60) Est GFR (Non-Af Amer) (> 60) BUN/Creatinine Ratio (6-26) Glucose (70-105) mg/dL Calculated Osmolality (280-300) Calcium (8.6-10.3) mg/dL Troponin I (< 0.04) ng/mL B-Natriuretic Peptide (Less than 100) pg/mL Urine Color Yellow (Yellow) Urine Clarity Cloudy A (Clear) Urine pH 7.0 (5.0-8.0) pH Units Ur Specific [place] 1.025 (1.010-1.025) Urine Protein Trace (Neg-Trace) mg/dL Urine Glucose (UA) Normal (Normal) mg/dL Urine Ketones Negative (Negative) mg/dL Urine Blood Negative (Negative) Urine Nitrite Negative (Negative) Urine Bilirubin Negative (Negative) Urine Urobilinogen Normal (Normal) mg/dL Ur Leukocyte Esterase Moderate H (Negative) Urine Microscopic RBC 5-15 H (0-3) per hpf Urine Microscopic WBC 15-30 H (0-3) per hpf Ur Squamous Epith Cells Many H (None-Few) per lpf Urine Bacteria Few (None-Few) per hpf Hyaline Casts None Seen (None-Few) per lpf Ur Culture Indicated? NO. A (NO) Attestation Statement - Attestation Attestation: I examined this patient and my medical decision-making was reviewed with the Resident Physician. I agree with the documented findings, disposition and treatment plan as described except to the extent set forth below. [id number] time provided Patient evaluated upon arrival to the emergency department by EMS for generalized weakness. ECG reviewed by me upon arrival. Plan of care discussed with the resident physician
--- NOTE | 2018-06-16 13:55 | Emergency Department Note ---
Disposition Clinical Impression: Atypical chest pain, Weakness, Failure to thrive Disposition: Admitted As Inpatient Condition: Fair Time of Disposition: 20:07 General Adult HPI - General Chief complaint: ED Chest Pain Stated complaint: Chest Tightes Time Seen by Provider: 06/16/18 13:41 Source: patient, EMS Mode of arrival: EMS Limitations: no limitations Nursing Notes Reviewed: Yes Vital Signs Reviewed: Yes - History of Present Illness HPI Narrative: The patient is a 72-year-old female who presents to [facility] ED for one week history of profound weakness. Patient states she has a history of GA with 3 vessel CABG as well as CHF. Pain Scale: 7 - Related Data Home Medications Medication Instructions Recorded Confirmed RX: Atorvastatin [Lipitor] 10 mg PO HS 06/16/15 01/12/18 RX: Hydrocodone/Acetaminophen 1 tab PO Q4-6H PRN 06/16/15 01/12/18 [[place] 10-325 Tablet] RX: Lisinopril [Zestril] 5 mg PO DAILY 05/03/17 01/12/18 Cholecalciferol (D-3) [Vitamin D] 2,000 unit PO DAILY 06/16/18 Ferrous Sulfate [Iron] 325 mg PO DAILY 06/16/18 Fish Oil/Dha/Epa [Fish Oil 1,200 1 cap PO DAILY 06/16/18 mg Fish Oil] Furosemide [Lasix] 20 mg PO DAILY 06/16/18 Mv,Fe,Min/Lutein [A Thru Z Select 1 tab PO DAILY 06/16/18 Women's Tablet] Oxybutynin Chloride [Ditropan Xl] 5 mg PO DAILY 06/16/18 Potassium Chloride [K-Tab ER] 20 meq PO DAILY 06/16/18 RX: Carvedilol 12.5 mg PO BID 06/16/18 RX: Folic Acid 1 mg PO DAILY 06/16/18 RX: traZODone [TraZODone] 50 mg PO HS 06/16/18 06/16/18 Previous Rx's Medication Instructions Recorded RX: Aspirin 81 mg PO DAILY #30 tab.chew 01/27/16 RX: Nitroglycerin 0.4 mg SL Q5MIN PRN #20 tab.subl 01/27/16 Allergies Allergy/AdvReac Type Severity Reaction Status Date / Time No Known Drug Allergies Allergy See Verified 09/17/17 10:08 Comments All systems ED: reviewed and negative except as stated. Constitutional: Reports: weakness Cardiovascular: Denies: chest pain Respiratory: Denies: dyspnea Gastrointestinal: Denies: abdominal pain Neurological: Reports: weakness, numbness, other (Patient is lightheadedness and dizziness if not in supine position). Denies: headache Past Medical History - Past Medical History Source: patient, nursing notes reviewed Medical history: Reports: cardiomyopathy, CHF, coronary artery disease, hyperlipidemia, hypertension, myocardial infarction Surgical history: Reports: appendectomy, carotid endarterectomy, cholecystectomy, coronary bypass (CABG), hysterectomy Psychiatric history: Reports: no psych history CONFIDENTIAL INVESTIGATOR history: Reports: no CONFIDENTIAL INVESTIGATOR history - Social History Smoking Status: Former smoker Smokeless Tobacco Status: No Alcohol use: Reports: none Drug use: Reports: none Physical Exam - General Limitations: no limitations General appearance: alert, in no apparent distress - Head Head exam: atraumatic, normocephalic - Eye Eye exam: Present: normal appearance, PERRL, EOMI. Absent: scleral icterus, conjunctival injection - Chest Chest inspection: Present: normal inspection, symmetric chest wall rise Course Course Narrative: Patient presentation is concerning for infectious etiology versus cardiac pathology. EKG, BNP, troponin ordered to evaluate for cardiac pathology as well as chest x-ray for possible cardiopulmonary process. CBC, BMP, and urinalysis ordered to evaluate infectious etiologies. Vital Signs Temperature 97.9 F 06/16/18 13:37 Pulse Rate 74 06/16/18 13:37 Respiratory Rate 20 06/16/18 13:37 Blood Pressure 139/59 06/16/18 13:37 O2 Sat by Pulse Oximetry 97 06/16/18 13:37 Temperature 97.8 F 06/16/18 17:51 Pulse Rate 68 06/16/18 17:51 Respiratory Rate 17 06/16/18 17:51 Blood Pressure 128/64 06/16/18 17:51 O2 Sat by Pulse Oximetry 95 06/16/18 17:51 Oxygen Delivery Oxygen Delivery Room Air Medical Decision Making - MDM Narrative Medical decision making narrative: Patient continued chest discomfort and weakness associated with EKG abno rmalities warrants admission for further observation. Plan for admission discussed at length with the patient, patient agreed to this plan. Hospitalist consulted and agreed to admission. - Lab Data Lab results reviewed: Yes I reviewed the patient's lab results. Result diagrams: 06/16/18 14:26 06/16/18 14:26 Lab Results 06/16/18 06/16/18 06/16/18 Range/Units 14:26 14:26 14:26 WBC 5.7 (4.3-11.1) K/mcL RBC 3.50 L (3.82-4.97) M/mcL Hgb 11.4 L (11.5-15.4) g/dL Hct 35.1 L (35.3-44.9) % MCV 100.3 H (83.0-100.0) fL MCH 32.6 (28.0-33.3) pg MCHC 32.5 (31.6-35.5) g/dL RDW 19.4 H (11.5-14.5) % Plt Count 249 (140-400) K/mcL MPV 12.4 (9.4-12.4) fL Immature Gran % 0.3 (0-4) % Seg Neutrophils % 47.0 % Lymphocytes % 41.6 % Monocytes % 10.5 % Eosinophils % 0.3 % Basophils % 0.3 % Neutrophils # 2.7 (1.6-8.9) K/mcL Lymphocytes # 2.4 (0.6-4.6) K/mcL Monocytes # 0.6 (0.0-1.3) K/mcL Eosinophils # 0.0 (0.0-0.6) K/mcL Basophils # 0.0 (0.0-0.2) K/mcL Platelet Estimate Normal (Normal) Poikilocytosis 1+ A (Not Present) Anisocytosis 1+ A (Not Present) Target Cells 1+ A (Not Present) Sodium 139 (136-145) mEq/L Potassium 4.0 (3.5-5.1) mEq/L Chloride 104 (98-107) mEq/L Carbon Dioxide 26 (23-29) mEq/L BUN 23 (8-23) mg/dL Creatinine 1.09 (0.60-1.20) mg/dL Est GFR ( Amer) 60 (> 60) Est GFR (Non-Af Amer) 49 L (> 60) BUN/Creatinine Ratio 21 (6-26) Glucose 110 H (70-105) mg/dL Calculated Osmolality 292 (280-300) Calcium 9.9 (8.6-10.3) mg/dL Troponin I 0.03 (< 0.04) ng/mL B-Natriuretic Peptide 775 H (Less than 100) pg/mL Urine Color (Yellow) Urine Clarity (Clear) Urine pH (5.0-8.0) pH Units Ur Specific [place] (1.010-1.025) Urine Protein (Neg-Trace) mg/dL Urine Glucose (UA) (Normal) mg/dL Urine Ketones (Negative) mg/dL Urine Blood (Negative) Urine Nitrite (Negative) Urine Bilirubin (Negative) Urine Urobilinogen (Normal) mg/dL Ur Leukocyte Esterase (Negative) Urine Microscopic RBC (0-3) per hpf Urine Microscopic WBC (0-3) per hpf Ur Squamous Epith Cells (None-Few) per lpf Urine Bacteria (None-Few) per hpf Hyaline Casts (None-Few) per lpf Ur Culture Indicated? (NO) 06/16/18 Range/Units 15:48 WBC (4.3-11.1) K/mcL RBC (3.82-4.97) M/mcL Hgb (11.5-15.4) g/dL Hct (35.3-44.9) % MCV (83.0-100.0) fL MCH (28.0-33.3) pg MCHC (31.6-35.5) g/dL RDW (11.5-14.5) % Plt Count (140-400) K/mcL MPV (9.4-12.4) fL Immature Gran % (0-4) % Seg Neutrophils % % Lymphocytes % % Monocytes % % Eosinophils % % Basophils % % Neutrophils # (1.6-8.9) K/mcL Lymphocytes # (0.6-4.6) K/mcL Monocytes # (0.0-1.3) K/mcL Eosinophils # (0.0-0.6) K/mcL Basophils # (0.0-0.2) K/mcL Platelet Estimate (Normal) Poikilocytosis (Not Present) Anisocytosis (Not Present) Target Cells (Not Present) Sodium (136-145) mEq/L Potassium (3.5-5.1) mEq/L Chloride (98-107) mEq/L Carbon Dioxide (23-29) mEq/L BUN (8-23) mg/dL Creatinine (0.60-1.20) mg/dL Est GFR ( Amer) (> 60) Est GFR (Non-Af Amer) (> 60) BUN/Creatinine Ratio (6-26) Glucose (70-105) mg/dL Calculated Osmolality (280-300) Calcium (8.6-10.3) mg/dL Troponin I (< 0.04) ng/mL B-Natriuretic Peptide (Less than 100) pg/mL Urine Color Yellow (Yellow) Urine Clarity Cloudy A (Clear) Urine pH 7.0 (5.0-8.0) pH Units Ur Specific [place] 1.025 (1.010-1.025) Urine Protein Trace (Neg-Trace) mg/dL Urine Glucose (UA) Normal (Normal) mg/dL Urine Ketones Negative (Negative) mg/dL Urine Blood Negative (Negative) Urine Nitrite Negative (Negative) Urine Bilirubin Negative (Negative) Urine Urobilinogen Normal (Normal) mg/dL Ur Leukocyte Esterase Moderate H (Negative) Urine Microscopic RBC 5-15 H (0-3) per hpf Urine Microscopic WBC 15-30 H (0-3) per hpf Ur Squamous Epith Cells Many H (None-Few) per lpf Urine Bacteria Few (None-Few) per hpf Hyaline Casts None Seen (None-Few) per lpf Ur Culture Indicated? NO. A (NO) - Radiology Data Radiology results reviewed: Yes I reviewed the patient's radiology results. Chest X-Ray 06/16/18 13:50 IMPRESSION: Question of COPD. No acute cardiopulmonary disease. D/ / Ivan Milner MD / Ivan Milner MD Interpreting Provider: Ivan Milner MD - EKG Data EKG #1 EKG attestation: Yes I reviewed and interpreted this EKG. EKG results narrative: Patient EKG shows a sinus rhythm with normal rate and axis, possible left ventricular hypertrophy noted according to voltage criteria in V1 and V5/V6. There is diffuse widening of the QRS interval as well as R on R prime phenomena suggestive of a bundle branch block. Ventricular rate of 71 bpm [place] interval of 147 ms, QRS duration of 124 ms, QT/QTc interval of 429/467 ms, respectively. There are no overt ST segment elevations although there are depressions noted of less than 1 mm in the lateral leads along with diffuse T-wave inversions. EKG performed today is generally consistent with previous EKGs performed on and 05/08/2017.
[2018-06-16] MEDS ORDERED: *HR* OxyCODONE/APAP 5/325 TABLET PO ONE (14:03)
[2018-06-16 14:58] LABS: Basophils % 0.3 %; Eosinophils % 0.3 %; Hematocrit 35.1 % (35.3-44.9); Hemoglobin 11.4 g/dL (11.5-15.4); Immature Granulocytes % 0.3 % (0-4); Lymphocytes # 2.4 K/mcL (0.6-4.6); Lymphocytes % 41.6 %; Mean Corpuscular HGB Conc 32.5 g/dL (31.6-35.5); Mean Corpuscular Hemoglobin 32.6 pg (28.0-33.3); Mean Corpuscular Volume 100.3 fL (83.0-100.0); Mean Platelet Volume 12.4 fL (9.4-12.4); Monocytes # 0.6 K/mcL (0.0-1.3); Monocytes % 10.5 %; Neutrophils # 2.7 K/mcL (1.6-8.9); Platelet Count 249 K/mcL (140-400); Red Cell Distribution Width 19.4 % (11.5-14.5)
[2018-06-16 15:01] LABS: Calcium 9.9 mg/dL (8.6-10.3)
[2018-06-16 15:02] LABS: Troponin I 0.03 ng/mL (< 0.04)
[2018-06-16 15:24] LABS: Anisocytosis 1+ (Not Present); Poikilocytosis 1+ (Not Present); Target Cells 1+ (Not Present)
[2018-06-16 15:25] LABS: Platelet Estimate Normal (Normal)
[2018-06-16 16:10] LABS: Bilirubin,Urine Negative (Negative); Blood,Urine Negative (Negative); Clarity,Urine Cloudy (Clear); Color,Urine Yellow (Yellow); Glucose,Urine (UA) Normal (Normal); Ketones,Urine Negative (Negative); Leukocyte Esterase,Urine Moderate (Negative); Nitrite,Urine Negative (Negative); Protein,Urine Trace mg/dL (Neg-Trace); Specific Gravity,Urine 1.025 (1.010-1.025); Urobilinogen,Urine Normal (Normal)
[2018-06-16 16:12] LABS: Bacteria,Urine Few per hpf (None-Few); Hyaline Casts,Urine None Seen per lpf (None-Few); Squamous Epithelial Cell,Urine Many per lpf (None-Few); WBC,Urine 15-30 per hpf (0-3)
[2018-06-16] MEDS ORDERED: Acetaminophen 325 MG TABLET PO PRN (17:27)
[2018-06-16] MEDS ORDERED: Naloxone 0.4 MG/ML INJ IVP PRN (17:27)
--- NOTE | 2018-06-16 18:06 | Internal Med History&Physical ---
Date of Encounter: 06/16/18 Time of Encounter: 17:51 Internal Medicine - H&P: HPI Chief complaint: CP Admitted From: Emergency Dept Plans for Post Hospital Care: Home History of present illness: Ms. Nuñez is a 72 year old female past medical history of cardiomyopathy congestive heart failure coronary artery disease with CABG hyperlipidemia hypertension CK D3 NC previous CEA. Patient presented to [facility] ED with co mplaints of midsternal chest heaviness nonradiating. Heaviness as aggravated with exertion and relieved with rest. Associated symptoms of weakness denies shortness of breath palpitations diaphoresis nausea or lightheadedness. Symptoms have been occurring for approximately 1 week. Patient does have a cardiac history with a CABG completed in 2003. Denies any recent cardiac workup. 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. She does have a history of CHF denies any lower extremity swelling weight gain shortness of breath or orthopnea. She denies any fevers chills nausea vomiting. In the ER chest x-ray was obtained which did show COPD changes but nothing acute. Lab work was obtained troponin was 0.03 no leukocytosis EKG was obtained however not available for review at this time ER documentation states sinus rhythm normal rate axis with possible left ventricular hypertrophy consistent with previous EKG on 01/12/2018. Patient was admitted for further workup and evaluation. Dianne kumari patient is chest pain free denies any shortness of breath she is hemodynamically stable Past Med Surg Social Fam HX - Past Medical History Medical history: cardiomyopathy, CHF, coronary artery disease, hyperlipidemia, hypertension, myocardial infarction Psychiatric history: no psych history - Past Surgical History Surgical History: appendectomy, carotid endarterectomy, cholecystectomy, coronary bypass (CABG), hysterectomy Additional surgical history: kidney operation. stimulator in back - Social History Smoking Status: Former smoker Smokeless Tobacco Status: No Alcohol use: none Drug use: none - Family History Brother Family Member Ethnicity: Non- Living Status: Still Living Hx Family Cardiac Disorders: Yes (HD) Hx Family Endocrine Disorder: Yes (DM) Sister Family Member Ethnicity: Non- Living Status: Still Living Hx Family Cardiac Disorders: Yes (HTN, NC) Hx Family Endocrine Disorder: Yes (DM) Father Family Member Ethnicity: Non- Living Status: Hx Family Cardiac Disorders: Yes (Stroke, HTN) Hx Family Respiratory Disorders: Yes Hx Family Cancer: No Hx Family GI Disorders: No Hx Family Endocrine Disorder: No Hx Family Neuromuscular Disorders: No Hx Family Neurologic Disorders: No Hx Family HEENT Disorders: No Hx Family Autoimmune Disorders: No Mother Family Member Ethnicity: Non- Living Status: Hx Family Cardiac Disorders: Yes (CVA, NC, HTN) Hx Family Respiratory Disorders: Yes Hx Family Cancer: No Hx Family GI Disorders: No Hx Family Endocrine Disorder: Yes (DM) Hx Family Neuromuscular Disorders: No Hx Family Neurologic Disorders: No Hx Family HEENT Disorders: No Hx Family Autoimmune Disorders: No Internal Medicine - H&P: Meds Atorvastatin [Lipitor] 10 mg PO HS 06/16/15 [History] Hydrocodone/Acetaminophen [[place] 10-325 Tablet] 1 tab PO Q4-6H PRN 06/16/15 [History] Aspirin 81 mg PO DAILY #30 tab.chew 01/27/16 [Rx] Nitroglycerin 0.4 mg SL Q5MIN PRN #20 tab.subl 01/27/16 [Rx] Lisinopril [Zestril] 5 mg PO DAILY 05/03/17 [History] Carvedilol 12.5 mg PO BID 06/16/18 [History] Cholecalciferol (D-3) [Vitamin D] 2,000 unit PO DAILY 06/16/18 [History] Ferrous Sulfate [Iron] 325 mg PO DAILY 06/16/18 [History] Fish Oil/Dha/Epa [Fish Oil 1,200 mg Fish Oil] 1 cap PO DAILY 06/16/18 [History] Folic Acid 1 mg PO DAILY 06/16/18 [History] Furosemide [Lasix] 20 mg PO DAILY 06/16/18 [History] Mv,Fe,Min/Lutein [A Thru Z Select Women's Tablet] 1 tab PO DAILY 06/16/18 [History] Oxybutynin Chloride [Ditropan Xl] 5 mg PO DAILY 06/16/18 [History] Potassium Chloride [K-Tab ER] 20 meq PO DAILY 06/16/18 [History] traZODone [TraZODone] 50 mg PO HS 06/16/18 [History] Allergy/AdvReac Type Severity Reaction Status Date / Time No Known Drug Allergies Allergy See Verified 05/09/17 10:08 Comments All Systems PM: A 10-system review of systems was performed and is negative for pertinent findings except as documented above in the HPI. - Constitutional Constitutional: no chills, no fever(s), no night sweats - EENT Eyes: no change in vision, no discharge, no pain, no photophobia Nose, mouth and throat: no dysphagia, no nasal discharge, no neck pain, no sore throat - Cardiovascular Cardiovascular ROS IM: chest pain, no diaphoresis, no dyspnea, no lightheadedness, no palpitations, no syncope - Respiratory Respiratory: no cough, no dyspnea, no wheezing, no excessive phlegm production - Gastrointestinal Gastrointestinal: no abdominal pain, no diarrhea, no hematemesis, no hematochezia, no melena, no nausea, no vomiting - Genitourinary Genitourinary: no change in urinary stream, no dysuria, no flank pain, no hematuria - Musculoskeletal Musculoskeletal ROS IM: no numbness, no tingling - Integumentary Integumentary IM: no rash, no unusual bruising - Neurological Neurological ROS: no confusion, no convulsions, no focal weakness, no numbness, no tingling, no tremor(s) - Hematologic/Lymphatic Hematologic/Lymphatic: no easy bruising - Constitutional Vitals: Temp Pulse Resp BP Pulse Ox 97.9 F 61 20 133/48 98 06/16/18 13:37 06/16/18 16:53 06/16/18 16:53 06/16/18 16:53 06/16/18 16:53 General appearance: Present: A&O X 3 Exam: see below - Head Head exam: Present: atraumatic, normocephalic - Eye Eye exam: Present: PERRL, conjuntiva pink, sclera anicteric Pupils: Present: PERRL - Neck Neck exam general surgery: Present: supple, trachea midline. Absent: lymphadeno arlet - Respiratory Respiratory exam: Present: CTAB. Absent: accessory muscle use, rales, rhonchi, wheezes - Cardiovascular Cardiovascular exam: Present: RRR, +S1, +S2. Absent: diastolic murmur, gallop, rubs, systolic murmur - GI/Abdominal GI/Abdominal exam: Present: normal bowel sounds, soft, no peritoneal signs. Absent: distended, tenderness - Extremities Exam Extremities exam: Present: warm, radial pulses palpable and symmetrical. Ab sent: calf tenderness, cyanotic, pedal edema - Neurological Exam Neurological exam: Present: CN II-XII intact, oriented X3, no focal deficits. Absent: pronater drift, facial droop, speech deficit - Skin Skin exam: Present: dry, intact Internal Med - H&P Results - Labs CBC & Chem 7: 06/16/18 14:26 06/16/18 14:26 Labs: Short CBC 06/16/18 Range/Units 14:26 WBC 5.7 (4.3-11.1) K/mcL Hgb 11.4 L (11.5-15.4) g/dL Hct 35.1 L (35.3-44.9) % Plt Count 249 (140-400) K/mcL Neutrophils # 2.7 (1.6-8.9) K/mcL BMP 06/16/18 14:26 Sodium 139 Potassium 4.0 Chloride 104 Carbon Dioxide 26 BUN 23 Creatinine 1.09 Glucose 110 H Calcium 9.9 Cardiac Enzymes 06/16/18 Range/Units 14:26 Troponin I 0.03 (< 0.04) ng/mL Urine 06/16/18 Range/Units 15:48 Urine Color Yellow (Yellow) Urine Clarity Cloudy A (Clear) Urine pH 7.0 (5.0-8.0) pH Units Ur Specific [place] 1.025 (1.010-1.025) Urine Protein Trace (Neg-Trace) mg/dL Urine Glucose (UA) Normal (Normal) mg/dL - Impressions ITS Impressions Chest X-Ray 06/16/18 13:50 IMPRESSION: Question of COPD. No acute cardiopulmonary disease. D/ / Ivan Milner MD / Ivan Milner MD Interpreting Provider: Ivan Milner MD - Diagnostic Studies CT scan - abdomen Additional comments: Chest X-Ray 06/16/18 13:50 IMPRESSION: Question of COPD. No acute cardiopulmonary disease. D/ / Ivan Milner MD / Ivan Milner MD Interpreting Provider: Ivan Milner MD - Assessment and plan (1) Chest pain Current Visit: No Status: Acute Assessment and plan: 1 patient has been experiencing chest heaviness midsternal nonradiating aggravated with exertion and relieved with rest for approximately 4 days. Associated symptom of weakness She does have past history of CAD with CABG History of smoking currently quit approximate 4 months ago Has not had any recent cardiac workup Initial troponin is negative we will continue to cycle troponins Obtain cardiac echo We will make patient nothing by mouth after midnight for stress test in a.m. if troponins remain negative and no change in condition overnight Qualifiers: Chest pain type: unspecified Qualified Code(s): R07.9 - Chest pain, unspecified (2) CAD (coronary artery disease) Current Visit: No Status: Chronic Assessment and plan: 1 history of CAD-CABG in 2003 we will continue with aspirin and statin beta kala MARII Continuous cardiac monitoring Nitroglycerin as needed for chest pain Qualifiers: Coronary Disease-Associated Artery/Lesion type: [place] artery [place] vs. transplanted heart: [place] heart Associated angina: with unstable angina Qualified Code(s): I25.110 - Atherosclerotic heart disease of [place] coronary artery with unstable angina pectoris (3) CKD (chronic kidney disease) stage 3, GFR 30-59 ml/min Current Visit: No Status: Chronic Assessment and plan: History of CK D stage III appears to be around baseline-baseline creatinine appears to be 1.3-1.16 this year and GFR 40-46 -GFR is currently 49 and creatinine is better than baseline at 1.09 Continue to monitor closely Monitor intake and output daily weights Avoid nephrotoxins (4) HLD (hyperlipidemia) Current Visit: No Status: Chronic Assessment and plan: Continue with statin check lipid profile Qualifiers: Hyperlipidemia type: pure hypercholesterolemia Qualified Code(s): E78.00 - Pure hypercholesterolemia, unspecified; E78.0 - Pure hypercholesterolemia (5) HTN (hypertension) Current Visit: No Status: Chronic Assessment and plan: Currently appears to be stable we will continue with home medications Qualifiers: Hypertension type: essential hypertension Qualified Code(s): I10 - Essential (primary) hypertension (6) DVT prophylaxis Current Visit: Yes Status: Acute Assessment and plan: Encourage patient to ambulate (7) CHF (congestive heart failure) Current Visit: No Status: Chronic Assessment and plan: 1 patient has a history of CHF-she does not appear to be an exacerbation at this time echo completed 01/25/2016 shows Impressions: LVEF 40-45%. Normal LV thickness and chamber size. Global left ventricular systolic dysfunction. Atypical septal motion c/w postoperative septum. Moderate left ventricular diastolic dysfunction. Normal right ventricular structure with mildly reduced function. Moderate aortic regurgitation. Mildly thickened and calcified mitral valve leaflets with reduced excursion. Severe mitral regurgitation. Severely dilated left atrium. Mild-moderate mitral stenosis suggested by Doppler. Mean gradient 6 mmHg. Visually, I do not suspect significant mitral stenosis. Severe pulmonary hypertension. Estimated RVSP is 61 mmHg. Compared to prior report, LVEF has decreased. We will continue with Lasix Monitor intake output daily weights Continue with carvedilol and lisinopril Chest x-ray with no signs of CHF Qualifiers: Heart failure type: unspecified Heart failure chronicity: chronic Qualified Code(s): I50.9 - Heart failure, unspecified - Time Spent With Patient Total time spent is greater than 50% in coordination of care (as documented) at patient's floor/unit and/or counseling patient:
[2018-06-16] MEDS: *HR* HYDROcodone/Acet 5/325 mg TABLET PO PRN (20:51)
[2018-06-16] MEDS ORDERED: Nitroglycerin 0.4 MG TAB.SUBL SL PRN (20:54)
[2018-06-16] MEDS: traZODone 50 MG TABLET PO SCH (21:25)
[2018-06-17] MEDS ORDERED: 0.9 % Sodium Chloride 500 ML IVC ONE (00:22)
[2018-06-17 01:57] LABS: Hematocrit 29.1 % (35.3-44.9); Immature Granulocytes % 0.3 % (0-4); Lymphocytes % 40.1 %; Mean Corpuscular Hemoglobin 32.1 pg (28.0-33.3); Mean Corpuscular Volume 100.3 fL (83.0-100.0); Mean Platelet Volume 11.6 fL (9.4-12.4); Platelet Count 232 K/mcL (140-400); Segmented Neutrophils % 46.7 %
[2018-06-17 01:58] LABS: Basophils % 0.3 %; Eosinophils # 0.1 K/mcL (0.0-0.6); Eosinophils % 1.5 %; Lymphocytes # 2.9 K/mcL (0.6-4.6); Monocytes # 0.8 K/mcL (0.0-1.3); Monocytes % 11.1 %; Neutrophils # 3.4 K/mcL (1.6-8.9); Nucleated Red Blood Cells 0.3 /100 WBC (0)
[2018-06-17 02:05] LABS: Hemoglobin 9.3 g/dL (11.5-15.4)
[2018-06-17 02:13] LABS: Calcium 8.5 mg/dL (8.6-10.3); Magnesium 1.7 mg/dL (1.6-2.6); Potassium 3.7 mEq/L (3.5-5.1)
[2018-06-17] MEDS: (Fish Oil/Dha/Epa [Fish Oil 1,200 Mg Fish Oil] 1 CAP) PO SCH (07:30)
[2018-06-17] MEDS: Cholecalciferol (D-3) 1,000 UNIT TABLET PO SCH (07:34)
[2018-06-17] MEDS: *HR* HYDROcodone/Acet 5/325 mg TABLET PO PRN ×2 (07:34→13:50)
[2018-06-17] MEDS: Folic Acid 1 MG TABLET PO SCH (07:34)
[2018-06-17] MEDS ORDERED: Regadenoson 0.4 MG/5 ML SYRINGE IVP ONE ×2 (10:46)
[2018-06-17] MEDS: Furosemide 20 MG TABLET PO SCH (12:41)
[2018-06-17] MEDS ORDERED: Perflutren Lipid Microsphere 1.3 ML in 0.9 % Sodium Chloride 8.7 ML IVP ONE (15:13)
[2018-06-17] MEDS ORDERED: Perflutren Lipid Microsphere 2 ML VIAL ONE (15:17)
--- NOTE | 2018-06-17 19:23 | Internal Med Progress Note ---
Hospitalist Progress Note - Encounter Date of Encounter: 06/17/18 Time of Encounter: 14:17 - Subjective Interval History: Recent seen and examined at bedside currently denies any chest pain at first patient declined having stress test however I did have cardiology [employer] Molly Cabrera speak with patient concerning stress test which she agreed. She will undergo stress test as well as an echo today - Exam Vitals: Temp Pulse Resp BP Pulse Ox 98.0 F 68 18 127/58 98 06/17/18 12:16 06/17/18 12:16 06/17/18 12:16 06/17/18 12:16 06/17/18 12:16 Exam: Head exam: Present: atraumatic, normocephalic - Eye Eye exam: Present: PERRL, conjuntiva pink, sclera anicteric Pupils: Present: PERRL - Neck Neck exam general surgery: Present: supple, trachea midline. Absent: lymphadeno arlet - Respiratory Respiratory exam: Present: CTAB. Absent: accessory muscle use, rales, rhonchi, wheezes - Cardiovascular Cardiovascular exam: Present: RRR, +S1, +S2. Absent: diastolic murmur, gallop, rubs, systolic murmur - GI/Abdominal GI/Abdominal exam: Present: normal bowel sounds, soft, no peritoneal signs. Absent: distended, tenderness - Extremities Exam Extremities exam: Present: warm, radial pulses palpable and symmetrical. Ab sent: calf tenderness, cyanotic, pedal edema - Neurological Exam Neurological exam: Present: CN II-XII intact, oriented X3, no focal deficits. Absent: pronater drift, facial droop, speech deficit - Assessment and Plan (1) Chest pain Current Visit: No Status: Acute Assessment and Plan: 1 patient has been experiencing chest heaviness midsternal nonradiating aggravated with exertion and relieved with rest for approximately 4 days. Associated symptom of weakness She does have past history of CAD with CABG History of smoking currently quit approximate 4 months ago Has not had any recent cardiac workup Initial troponin is negative we will continue to cycle troponins Obtain cardiac echo We will make patient nothing by mouth after midnight for stress test in a.m. if troponins remain negative and no change in condition overnight 06/17 Patient is to undergo cardiac stress test today troponins have been negative 3 no chest pain no changes in EKG Awaiting echo results (2) CAD (coronary artery disease) Current Visit: No Status: Chronic Assessment and Plan: 1 history of CAD-CABG in 2003 we will continue with aspirin and statin beta kala MARII Continuous cardiac monitoring Nitroglycerin as needed for chest pain 06/17 No chest pain overnight and continue with aspirin and statin beta kala MARII Nitroglycerin as needed (3) CKD (chronic kidney disease) stage 3, GFR 30-59 ml/min Current Visit: No Status: Chronic Assessment and Plan: History of CK D stage III appears to be around baseline-baseline creatinine appears to be 1.3-1.16 this year and GFR 40-46 -GFR is currently 49 and creatinine is better than baseline at 1.09 Continue to monitor closely Monitor intake and output daily weights Avoid nephrotoxins 06/17 CKD stable at this time continue to monitor (4) HLD (hyperlipidemia) Current Visit: No Status: Chronic Assessment and Plan: Continue with statin (5) HTN (hypertension) Current Visit: No Status: Chronic Assessment and Plan: Currently appears to be stable we will continue with home medications (6) DVT prophylaxis Current Visit: Yes Status: Acute Assessment and Plan: Encourage patient to ambulate (7) CHF (congestive heart failure) Current Visit: No Status: Chronic Assessment and Plan: 1 patient has a history of CHF-she does not appear to be an exacerbation at this time echo completed 01/25/2016 shows Impressions: LVEF 40-45%. Normal LV thickness and chamber size. Global left ventricular systolic dysfunction. Atypical septal motion c/w postoperative septum. Moderate left ventricular diastolic dysfunction. Normal right ventricular structure with mildly reduced function. Moderate aortic regurgitation. Mildly thickened and calcified mitral valve leaflets with reduced excursion. Severe mitral regurgitation. Severely dilated left atrium. Mild-moderate mitral stenosis suggested by Doppler. Mean gradient 6 mmHg. Visually, I do not suspect significant mitral stenosis. Severe pulmonary hypertension. Estimated RVSP is 61 mmHg. Compared to prior report, LVEF has decreased. We will continue with Lasix Monitor intake output daily weights Continue with carvedilol and lisinopril Chest x-ray with no signs of CHF 06/17 Monitor intake and output continue with Lasix does not appear to be fluid overloaded at this time Continue carvedilol and lisinopril - Time Spent with Patient Total time spent is greater than 50% in coordination of care (as documented) at patient's floor/unit and/or counseling patient: Internal Medicine: Result - Labs CBC & Chem 7: 06/17/18 01:35 06/17/18 01:35 Labs: Short CBC 06/16/18 06/17/18 Range/Units 14:26 01:35 WBC 5.7 7.2 (4.3-11.1) K/mcL Hgb 11.4 L 9.3 L D (11.5-15.4) g/dL Hct 35.1 L 29.1 L (35.3-44.9) % Plt Count 249 232 (140-400) K/mcL Neutrophils # 2.7 3.4 (1.6-8.9) K/mcL BMP 06/16/18 06/17/18 14:26 01:35 Sodium 139 138 Potassium 4.0 3.7 Chloride 104 107 Carbon Dioxide 26 26 BUN 23 38 H Creatinine 1.09 1.17 Glucose 110 H 105 Calcium 9.9 8.5 L Cardiac Enzymes 06/16/18 06/16/18 06/17/18 Range/Units 14:26 19:40 01:35 Troponin I 0.03 < 0.03 < 0.03 (< 0.04) ng/mL Urine 06/16/18 Range/Units 15:48 Urine Color Yellow (Yellow) Urine Clarity Cloudy A (Clear) Urine pH 7.0 (5.0-8.0) pH Units Ur Specific Kimberly 1.025 (1.010-1.025) Urine Protein Trace (Neg-Trace) mg/dL Urine Glucose (UA) Normal (Normal) mg/dL - Impressions Impressions Chest X-Ray 06/16/18 13:50 IMPRESSION: Question of COPD. No acute cardiopulmonary disease. D/ / Ivan Milner MD / Ivan Milner MD Interpreting Provider: Ivan Milner MD Consult Discharge Plan - Plan Referrals: Teo Kim MD [Primary Care Provider] - (1) Chest pain Qualifiers: Chest pain type: unspecified Qualified Code(s): R07.9 - Chest pain, unspecified (2) CAD (coronary artery disease) Qualifiers: Coronary Disease-Associated Artery/Lesion type: [place] artery [place] vs. transplanted heart: [place] heart Associated angina: with unstable angina Qualified Code(s): I25.110 - Atherosclerotic heart disease of [place] coronary artery with unstable angina pectoris (4) HLD (hyperlipidemia) Qualifiers: Hyperlipidemia type: pure hypercholesterolemia Qualified Code(s): E78.00 - Pure hypercholesterolemia, unspecified; E78.0 - Pure hypercholesterolemia (5) HTN (hypertension) Qualifiers: Hypertension type: essential hypertension Qualified Code(s): I10 - Essential (primary) hypertension (7) CHF (congestive heart failure) Qualifiers: Heart failure type: unspecified Heart failure chronicity: chronic Qualified Code(s): I50.9 - Heart failure, unspecified
[2018-06-17] MEDS: traZODone 50 MG TABLET PO SCH (20:37)
[2018-06-18] MEDS: *HR* HYDROcodone/Acet 5/325 mg TABLET PO PRN ×3 (04:00→21:18)
[2018-06-18 04:09] LABS: Basophils % 0.5 %; Eosinophils # 0.1 K/mcL (0.0-0.6); Eosinophils % 2.1 %; Hematocrit 31.5 % (35.3-44.9); Hemoglobin 9.9 g/dL (11.5-15.4); Immature Granulocytes % 0.2 % (0-4); Lymphocytes # 2.9 K/mcL (0.6-4.6); Lymphocytes % 47.1 %; Mean Corpuscular HGB Conc 31.4 g/dL (31.6-35.5); Mean Corpuscular Hemoglobin 31.5 pg (28.0-33.3); Mean Corpuscular Volume 100.3 fL (83.0-100.0); Mean Platelet Volume 11.8 fL (9.4-12.4); Monocytes # 0.6 K/mcL (0.0-1.3); Monocytes % 9.1 %; Neutrophils # 2.5 K/mcL (1.6-8.9); Nucleated Red Blood Cells 0.3 /100 WBC (0); Platelet Count 234 K/mcL (140-400); Red Blood Count 3.14 M/mcL (3.82-4.97); Red Cell Distribution Width 19.4 % (11.5-14.5)
[2018-06-18 04:35] LABS: Calcium 8.8 mg/dL (8.6-10.3); Potassium 4.9 mEq/L (3.5-5.1)
[2018-06-18] MEDS ORDERED: 0.9 % Sodium Chloride 1,000 ML IVC SCH ×2 (08:00→18:45)
[2018-06-18] MEDS: Furosemide 20 MG TABLET PO SCH (08:58)
[2018-06-18] MEDS: (Fish Oil/Dha/Epa [Fish Oil 1,200 Mg Fish Oil] 1 CAP) PO SCH (08:58)
[2018-06-18] MEDS: Folic Acid 1 MG TABLET PO SCH (08:58)
[2018-06-18] MEDS: Cholecalciferol (D-3) 1,000 UNIT TABLET PO SCH (08:58)
[2018-06-18 13:38] LABS: Calcium 9.3 mg/dL (8.6-10.3); Potassium 5.7 mEq/L (3.5-5.1)
[2018-06-18 16:48] LABS: Potassium 4.9 mEq/L (3.5-5.1)
--- NOTE | 2018-06-18 18:09 | Internal Med Progress Note ---
Hospitalist Progress Note - Encounter Date of Encounter: 06/18/18 Time of Encounter: 18:07 - Subjective Interval History: Patient seen and examined at bedside. Patient does have a new daycare this morning most likely from dehydration. We will give IV fluids and monitor closely. I did update the patient who was very upset stating she wanted to go home. Explained the reasoning of Y she was receiving IV fluids and she verbalized understanding. We will continue with current treatment plan - Exam Vitals: Temp Pulse Resp BP Pulse Ox 98.9 F 71 14 121/61 98 06/18/18 15:35 06/18/18 15:35 06/18/18 15:35 06/18/18 15:35 06/18/18 15:35 - Assessment and Plan (1) Chest pain Current Visit: No Status: Acute (2) CAD (coronary artery disease) Current Visit: No Status: Chronic (3) CKD (chronic kidney disease) stage 3, GFR 30-59 ml/min Current Visit: No Status: Chronic (4) HLD (hyperlipidemia) Current Visit: No Status: Chronic (5) HTN (hypertension) Current Visit: No Status: Chronic (6) DVT prophylaxis Current Visit: Yes Status: Acute (7) CHF (congestive heart failure) Current Visit: No Status: Chronic - Time Spent with Patient Total time spent is greater than 50% in coordination of care (as documented) at patient's floor/unit and/or counseling patient: Internal Medicine: Result - Labs CBC & Chem 7: 06/18/18 02:53 06/18/18 16:07 Labs: Short CBC 06/18/18 Range/Units 02:53 WBC 6.1 (4.3-11.1) K/mcL Hgb 9.9 L (11.5-15.4) g/dL Hct 31.5 L (35.3-44.9) % Plt Count 234 (140-400) K/mcL Neutrophils # 2.5 (1.6-8.9) K/mcL BMP 06/18/18 06/18/18 06/18/18 02:53 12:57 16:07 Sodium 141 140 140 Potassium 4.9 5.7 H 4.9 Chloride 109 H 110 H 107 Carbon Dioxide 24 21 L 26 BUN 33 H 30 H 32 H Creatinine 1.45 H 1.42 H 1.43 H Glucose 90 86 103 Calcium 8.8 9.3 9.0 Consult Discharge Plan - Plan Referrals: Teo Kim MD [Primary Care Provider] - (1) Chest pain Qualifiers: Chest pain type: unspecified Qualified Code(s): R07.9 - Chest pain, unspecified (2) CAD (coronary artery disease) Qualifiers: Coronary Disease-Associated Artery/Lesion type: [place] artery [place] vs. transplanted heart: [place] heart Associated angina: with unstable angina Qualified Code(s): I25.110 - Atherosclerotic heart disease of [place] coronary artery with unstable angina pectoris (4) HLD (hyperlipidemia) Qualifiers: Hyperlipidemia type: pure hypercholesterolemia Qualified Code(s): E78.00 - Pure hypercholesterolemia, unspecified; E78.0 - Pure hypercholesterolemia (5) HTN (hypertension) Qualifiers: Hypertension type: essential hypertension Qualified Code(s): I10 - Essential (primary) hypertension (7) CHF (congestive heart failure) Qualifiers: Heart failure type: unspecified Heart failure chronicity: chronic Qualified Code(s): I50.9 - Heart failure, unspecified
--- NOTE | 2018-06-18 18:30 | Discharge Summary ---
- NOTES TO OUTPATIENT PROVIDER Notes to Outpatient Provider: Patient presented with chest pain troponins were negative she underwent a nuclear stress test which was negative for any ischemia or infarct. During admission patient did develop a AK I was given IV fluids advised patient to stay overnight to continue fluids however patient declined and signed out AGAINST MEDICAL ADVICE Orders not resulted at time of discharge: Pending orders 06/17/18 09:28 NM ernesto perf SPECT multi [NM] Routine 06/19/18 04:00 Basic Metabolic Panel AM 0400 Complete Blood Count [HEME] AM 0400 Date of Encounter: 06/18/18 Time of Encounter: 18:23 - Discharge Diagnosis (1) Chest pain Priority: Primary Status: Acute Qualifiers: Chest pain type: unspecified Qualified Code(s): R07.9 - Chest pain, unspecified (2) CAD (coronary artery disease) Priority: Secondary Status: Chronic Qualifiers: Coronary Disease-Associated Artery/Lesion type: [place] artery [place] vs. transplanted heart: [place] heart Associated angina: with unstable angina Qualified Code(s): I25.110 - Atherosclerotic heart disease of [place] coronary artery with unstable angina pectoris (3) CKD (chronic kidney disease) stage 3, GFR 30-59 ml/min Priority: Secondary Status: Chronic (4) HLD (hyperlipidemia) Priority: Secondary Status: Chronic Qualifiers: Hyperlipidemia type: pure hypercholesterolemia Qualified Code(s): E78.00 - Pure hypercholesterolemia, unspecified; E78.0 - Pure hypercholesterolemia (5) HTN (hypertension) Priority: Secondary Status: Chronic Qualifiers: Hypertension type: essential hypertension Qualified Code(s): I10 - Essential (primary) hypertension (6) CHF (congestive heart failure) Status: Chronic Qualifiers: Heart failure type: unspecified Heart failure chronicity: chronic Qualified Code(s): I50.9 - Heart failure, unspecified Hospital course: Ms. Nuñez is a 72 year old female - Time Spent with Patient Total time spent providing and/or coordinating discharge services: - Discharge Medications Home Medications: Atorvastatin [Lipitor] 10 mg PO HS 06/16/15 [History] Hydrocodone/Acetaminophen [[place] 10-325 Tablet] 1 tab PO Q4-6H PRN 06/16/15 [History] Aspirin 81 mg PO DAILY #30 tab.chew 01/27/16 [Rx] Nitroglycerin 0.4 mg SL Q5MIN PRN #20 tab.subl 01/27/16 [Rx] Lisinopril [Zestril] 5 mg PO DAILY 05/03/17 [History] Carvedilol 12.5 mg PO BID 06/16/18 [History] Cholecalciferol (D-3) [Vitamin D] 2,000 unit PO DAILY 06/16/18 [History] Ferrous Sulfate [Iron] 325 mg PO DAILY 06/16/18 [History] Fish Oil/Dha/Epa [Fish Oil 1,200 mg Fish Oil] 1 cap PO DAILY 06/16/18 [History] Folic Acid 1 mg PO DAILY 06/16/18 [History] Furosemide [Lasix] 20 mg PO DAILY 06/16/18 [History] Mv,Fe,Min/Lutein [A Thru Z [employer] Tablet] 1 tab PO DAILY 06/16/18 [History] Oxybutynin Chloride [Ditropan Xl] 5 mg PO DAILY 06/16/18 [History] Potassium Chloride [K-Tab ER] 20 meq PO DAILY 06/16/18 [History] traZODone [TraZODone] 50 mg PO HS 06/16/18 [History] Allergies/Adverse Reactions: Allergy/AdvReac Type Severity Reaction Status Date / Time No Known Drug Allergies Allergy See Verified 05/09/17 10:08 Comments Date of admission: 06/16/18 16:45 Primary care physician: Teo Kim Consults: 06/16/18 18:18 Consult to Precision Layout Worker [CONS] Routine Reason for SW Consult: Discharge planning 06/17/18 09:05 Consult to Occupational Therapy [CONS] Routine Comment: Evaluate, develop and implement POC Reason for Consult: WEAKNESS. PATIENT STATES THAT SHE CANNOT WALK. Does patient have active BEDREST order?: No Is patient medically & hemodynamically stable?: Yes Discharging clinician: mAalia Hawkins Anticipated date of discharge: 06/18/18 - Constitutional Vitals: Temp Pulse Resp BP Pulse Ox 98.9 F 71 14 121/61 98 06/18/18 15:35 06/18/18 15:35 06/18/18 15:35 06/18/18 15:35 06/18/18 15:35 General appearance: Present: A&O X 3 - Patient Status Condition: Fair - Discharge Instructions Follow Up With: Teo Kim MD [Primary Care Provider] -
--- NOTE | 2018-06-18 18:41 | Internal Med Progress Note ---
Hospitalist Progress Note - Encounter Date of Encounter: 06/18/18 Time of Encounter: 18:38 - Subjective Interval History: Patient was seen and examined at bedside earlier this morning she does have a new JEANIE. I did give her IV fluids with some improvement. We will continue with IV fluids overnight. I did discuss this with the patient who verbalized u nderstanding and agreement to plan. - Exam Vitals: Temp Pulse Resp BP Pulse Ox 98.9 F 71 14 121/61 98 06/18/18 15:35 06/18/18 15:35 06/18/18 15:35 06/18/18 15:35 06/18/18 15:35 Exam: Head exam: Present: atraumatic, normocephalic - Eye Eye exam: Present: PERRL, conjuntiva pink, sclera anicteric Pupils: Present: PERRL - Neck Neck exam general surgery: Present: supple, trachea midline. Absent: lymphaden opathy - Respiratory Respiratory exam: Present: CTAB. Absent: accessory muscle use, rales, rhonchi, wheezes - Cardiovascular Cardiovascular exam: Present: RRR, +S1, +S2. Absent: diastolic murmur, gallop, rubs, systolic murmur - GI/Abdominal GI/Abdominal exam: Present: normal bowel sounds, soft, no peritoneal signs. Absent: distended, tenderness - Extremities Exam Extremities exam: Present: warm, radial pulses palpable and symmetrical. A bsent: calf tenderness, cyanotic, pedal edema - Neurological Exam Neurological exam: Present: CN II-XII intact, oriented X3, no focal deficits. Absent: pronater drift, facial droop, speech deficit - Assessment and Plan (1) Chest pain Current Visit: No Status: Acute Assessment and Plan: 1 patient has been experiencing chest heaviness midsternal nonradiating aggravated with exertion and relieved with rest for approximately 4 days. Associated symptom of weakness She does have past history of CAD with CABG History of smoking currently quit approximate 4 months ago Has not had any recent cardiac workup Initial troponin is negative we will continue to cycle troponins Obtain cardiac echo We will make patient nothing by mouth after midnight for stress test in a.m. if troponins remain negative and no change in condition overnight 06/17 Patient is to undergo cardiac stress test today troponins have been negative 3 no chest pain no changes in EKG Awaiting echo result 06/18 Patient underwent cardiac stress tests which was negative for any ischemia or infarct Echo does show EF of 45-50% with mild diastolic dysfunction. No chest pain (2) CAD (coronary artery disease) Current Visit: No Status: Chronic Assessment and Plan: 1 history of CAD-CABG in 2003 we will continue with aspirin and statin beta kala LUIS FELIPE Continuous cardiac monitoring Nitroglycerin as needed for chest pain 06/17 No chest pain overnight and continue with aspirin and statin beta kala LUIS FELIPE Nitroglycerin as needed 06/18 No chest pain overnight continues aspirin and statin beta kala we will hold Luis Felipe due to JEANIE (3) CKD (chronic kidney disease) stage 3, GFR 30-59 ml/min Current Visit: No Status: Chronic Assessment and Plan: History of CK D stage III appears to be around baseline-baseline creatinine appears to be 1.3-1.16 this year and GFR 40-46 -GFR is currently 49 and creatinine is better than baseline at 1.09 Continue to monitor closely Monitor intake and output daily weights Avoid nephrotoxins 06/17 CKD stable at this time continue to monitor 06/18 Patient does have a KI creatinine 1.37 and GFR 36 as well as elevated potassium. This likely secondary to diuretic use and dehydration. We will give IV fluids Continue to monitor closely hold lisinopril Lasix and potassium Monitor electrolytes (4) HLD (hyperlipidemia) Current Visit: No Status: Chronic Assessment and Plan: Continue with statin (5) HTN (hypertension) Current Visit: No Status: Chronic Assessment and Plan: Currently appears to be stable we will continue with home medications We will hold lisinopril due to JEANIE (6) CHF (congestive heart failure) Current Visit: No Status: Chronic Assessment and Plan: 1 patient has a history of CHF-she does not appear to be an exacerbation at this time echo completed 01/25/2016 shows Impressions: LVEF 40-45%. Normal LV thickness and chamber size. Global left ventricular systolic dysfunction. Atypical septal motion c/w postoperative septum. Moderate left ventricular diastolic dysfunction. Normal right ventricular structure with mildly reduced function. Moderate aortic regurgitation. Mildly thickened and calcified mitral valve leaflets with reduced excursion. Severe mitral regurgitation. Severely dilated left atrium. Mild-moderate mitral stenosis suggested by Doppler. Mean gradient 6 mmHg. Visually, I do not suspect significant mitral stenosis. Severe pulmonary hypertension. Estimated RVSP is 61 mmHg. Compared to prior report, LVEF has decreased. We will continue with Lasix Monitor intake output daily weights Continue with carvedilol and lisinopril Chest x-ray with no signs of CHF 06/17 Monitor intake and output continue with Lasix does not appear to be fluid overloaded at this time Continue carvedilol and lisinopril 06/18 Does not seem to be fluid overloaded she did receive Lasix and appears to be dry at this time we will hold Lasix for now continue with carvedilol and hold lisinopril (7) JEANIE (acute kidney injury) Current Visit: Yes Status: Acute Assessment and Plan: Patient does have a KI creatinine 1.37 and GFR 36 as well as elevated potassium. This likely secondary to diuretic use and dehydration. We will give IV fluids Continue to monitor closely hold lisinopril Lasix and potassium Monitor electrolytes - Time Spent with Patient Total time spent is greater than 50% in coordination of care (as documented) at patient's floor/unit and/or counseling patient: Internal Medicine: Result - Labs CBC & Chem 7: 06/18/18 02:53 06/18/18 16:07 Labs: Short CBC 06/18/18 Range/Units 02:53 WBC 6.1 (4.3-11.1) K/mcL Hgb 9.9 L (11.5-15.4) g/dL Hct 31.5 L (35.3-44.9) % Plt Count 234 (140-400) K/mcL Neutrophils # 2.5 (1.6-8.9) K/mcL BMP 06/18/18 06/18/18 06/18/18 02:53 12:57 16:07 Sodium 141 140 140 Potassium 4.9 5.7 H 4.9 Chloride 109 H 110 H 107 Carbon Dioxide 24 21 L 26 BUN 33 H 30 H 32 H Creatinine 1.45 H 1.42 H 1.43 H Glucose 90 86 103 Calcium 8.8 9.3 9.0 Consult Discharge Plan - Plan Referrals: Teo Kim MD [Primary Care Provider] - (1) Chest pain Qualifiers: Chest pain type: unspecified Qualified Code(s): R07.9 - Chest pain, unspecified (2) CAD (coronary artery disease) Qualifiers: Coronary Disease-Associated Artery/Lesion type: [place] artery [place] vs. transplanted heart: [place] heart Associated angina: with unstable angina Qualified Code(s): I25.110 - Atherosclerotic heart disease of [place] coronary artery with unstable angina pectoris (4) HLD (hyperlipidemia) Qualifiers: Hyperlipidemia type: pure hypercholesterolemia Qualified Code(s): E78.00 - Pure hypercholesterolemia, unspecified; E78.0 - Pure hypercholesterolemia (5) HTN (hypertension) Qualifiers: Hypertension type: essential hypertension Qualified Code(s): I10 - Essential (primary) hypertension (6) CHF (congestive heart failure) Qualifiers: Heart failure type: unspecified Heart failure chronicity: chronic Qualified Code(s): I50.9 - Heart failure, unspecified
[2018-06-18] MEDS: traZODone 50 MG TABLET PO SCH (19:54)
--- NOTE | 2018-06-18 22:54 | Electrocardiograph Report ---
[address] [place], [place] [address] Test Date: 2018-06-16 Pat Name: Francesca Nuñez Department: [id number] Room: 3B13 Gender: F Patrol Man: : 1945 Requested By: Manju Chavez Order Number: [id number] Reading MD: Antonia Villanueva Measurements Intervals [place] Rate: 69 P: 80 NE: 149 QRS: 113 QRSD: 124 T: -59 QT: 408 QTc: 438 Interpretive Statements Sinus rhythm, Ventricular premature complex Nonspecific IVCD with RAD Consider left ventricular hypertrophy Repol abnrm suggests ischemia, diffuse leads Electronically Signed On 06-18-2018 22:53:02 EDT by Antonia Villanueva
[2018-06-19] MEDS ORDERED: 0.9 % Sodium Chloride 500 ML IVC SCH (01:45)
[2018-06-19 03:54] LABS: Basophils % 0.5 %; Eosinophils # 0.3 K/mcL (0.0-0.6); Eosinophils % 3.9 %; Hemoglobin 9.4 g/dL (11.5-15.4); Immature Granulocytes % 0.3 % (0-4); Lymphocytes # 3.2 K/mcL (0.6-4.6); Lymphocytes % 49.8 %; Mean Corpuscular HGB Conc 32.4 g/dL (31.6-35.5); Mean Corpuscular Hemoglobin 32.1 pg (28.0-33.3); Mean Platelet Volume 12.2 fL (9.4-12.4); Monocytes # 0.6 K/mcL (0.0-1.3); Monocytes % 9.1 %; Neutrophils # 2.3 K/mcL (1.6-8.9); Platelet Count 213 K/mcL (140-400); Red Blood Count 2.93 M/mcL (3.82-4.97); Red Cell Distribution Width 19.4 % (11.5-14.5); Segmented Neutrophils % 36.4 %
[2018-06-19 04:15] LABS: Calcium 8.6 mg/dL (8.6-10.3); Potassium 4.7 mEq/L (3.5-5.1)
[2018-06-19 07:02] VITALS: BP 117/67
--- NOTE | 2018-06-19 08:01 | Discharge Summary ---
- NOTES TO OUTPATIENT PROVIDER Notes to Outpatient Provider: Presented with CP- underwent cardiac stress test which was negative for ischemia or infarct. Did have JEANIE give IVF which improved- Will have patient hold lasix potassium and lisinopril until Wednesday - check chemistry chemistry on Wed Orders not resulted at time of discharge: Pending orders 06/17/18 09:28 NM ernesto perf SPECT multi [NM] Routine Date of Encounter: 06/19/18 Time of Encounter: 07:59 - Discharge Diagnosis (1) Chest pain Priority: Primary Status: Acute Qualifiers: Chest pain type: unspecified Qualified Code(s): R07.9 - Chest pain, unspecified (2) CAD (coronary artery disease) Priority: Secondary Status: Chronic Qualifiers: Coronary Disease-Associated Artery/Lesion type: [place] artery [place] vs. transplanted heart: [place] heart Associated angina: with unstable angina Qualified Code(s): I25.110 - Atherosclerotic heart disease of [place] coronary artery with unstable angina pectoris (3) CKD (chronic kidney disease) stage 3, GFR 30-59 ml/min Priority: Secondary Status: Chronic (4) HLD (hyperlipidemia) Priority: Secondary Status: Chronic Qualifiers: Hyperlipidemia type: pure hypercholesterolemia Qualified Code(s): E78.00 - Pure hypercholesterolemia, unspecified; E78.0 - Pure hypercholesterolemia (5) HTN (hypertension) Priority: Secondary Status: Chronic Qualifiers: Hypertension type: essential hypertension Qualified Code(s): I10 - Essential (primary) hypertension (6) CHF (congestive heart failure) Priority: Secondary Status: Chronic Qualifiers: Heart failure type: unspecified Heart failure chronicity: chronic Qualified Code(s): I50.9 - Heart failure, unspecified (7) JEANIE (acute kidney injury) Priority: Secondary Status: Acute Hospital course: Ms. Nuñez is a 72 year old female past medical history of cardiomyopathy congestive heart failure coronary disease with CABG hyperlipidemia hypertension CK D3 previous CTA she presented to [facility] ED with complaints of midsternal chest heaviness nonradiating which have been occurring for approximately 1 week. Troponins were negative [address]-T wave abnormalities echo did show EF of 4045% with mild global left ventricular systolic dysfunction moderate left ventricular diastolic dysfunction normal right ventricular structure and function mildly dilated left atrium mild to moderate aortic regurgitation moderate to severe mitral regurgitation and mild tricuspid regurgitation. Patient underwent a cardiac stress test which was negative for any ischemia but did show a fixed moderate-sized severe perfusion defects apex representing infarct. Did discuss with Dr. Abreu advised patient to follow-up as an outpatient. During admission patient did experience JEANIE-as well as hyperkalemia her Lasix was held and she was given IV fluids which did improve her history of present illness and hyperkalemia. Advised patient to monitor blood pressure and to have lab work rechecked later this week on Wednesday and resume Lasix and lisinopril after 2 days. Patient verbalized understanding also advised patient to follow-up with her primary care provider which she states she has a appointment next week. She is hemodynamically stable and establishes regular discharge. - Time Spent with Patient Total time spent providing and/or coordinating discharge services: - Discharge Medications Home Medications: Atorvastatin [Lipitor] 10 mg PO HS 06/16/15 [History] Hydrocodone/Acetaminophen [[place] 10-325 Tablet] 1 tab PO Q4-6H PRN 06/16/15 [H istory] Aspirin 81 mg PO DAILY #30 tab.chew 01/27/16 [Rx] Nitroglycerin 0.4 mg SL Q5MIN PRN #20 tab.subl 01/27/16 [Rx] Lisinopril [Zestril] 5 mg PO DAILY 05/03/17 [History] Carvedilol 12.5 mg PO BID 06/16/18 [History] Cholecalciferol (D-3) [Vitamin D] 2,000 unit PO DAILY 06/16/18 [History] Ferrous Sulfate [Iron] 325 mg PO DAILY 06/16/18 [History] Fish Oil/Dha/Epa [Fish Oil 1,200 mg Fish Oil] 1 cap PO DAILY 06/16/18 [History] Folic Acid 1 mg PO DAILY 06/16/18 [History] Furosemide [Lasix] 20 mg PO DAILY 06/16/18 [History] Mv,Fe,Min/Lutein [A Thru Z [employer] Tablet] 1 tab PO DAILY 06/16/18 [History] Oxybutynin Chloride [Ditropan Xl] 5 mg PO DAILY 06/16/18 [History] Potassium Chloride [K-Tab ER] 20 meq PO DAILY 06/16/18 [History] traZODone [TraZODone] 50 mg PO HS 06/16/18 [History] Allergies/Adverse Reactions: Allergy/AdvReac Type Severity Reaction Status Date / Time No Known Drug Allergies Allergy See Verified 05/09/17 10:08 Comments Date of admission: 06/16/18 16:45 Primary care physician: Teo Kim Consults: 06/16/18 18:18 Consult to Assembly Cleaner [CONS] Routine Reason for SW Consult: Discharge planning 06/17/18 09:05 Consult to Occupational Therapy [CONS] Routine Comment: Evaluate, develop and implement POC Reason for Consult: WEAKNESS. PATIENT STATES THAT SHE CANNOT WALK. Does patient have active BEDREST order?: No Is patient medically & hemodynamically stable?: Yes Discharging clinician: Amalia Hawkins Anticipated date of discharge: 06/19/18 - Constitutional Vitals: Temp Pulse Resp BP Pulse Ox 97.9 F 66 16 117/67 98 06/19/18 07:01 06/19/18 07:01 06/19/18 07:01 06/19/18 07:01 06/19/18 07:01 General appearance: Present: A&O X 3 Exam: Head exam: Present: atraumatic, normocephalic - Eye Eye exam: Present: PERRL, conjuntiva pink, sclera anicteric Pupils: Present: PERRL - Neck Neck exam general surgery: Present: supple, trachea midline. Absent: lymphadenopathy - Respiratory Respiratory exam: Present: CTAB. Absent: accessory muscle use, rales, rhonchi, wheezes - Cardiovascular Cardiovascular exam: Present: RRR, +S1, +S2. Absent: diastolic murmur, gallop, rubs, systolic murmur - GI/Abdominal GI/Abdominal exam: Present: normal bowel sounds, soft, no peritoneal signs. Absent: distended, tenderness - Extremities Exam Extremities exam: Present: warm, radial pulses palpable and symmetrical. Absent: calf tenderness, cyanotic, pedal edema - Neurological Exam Neurological exam: Present: CN II-XII intact, oriented X3, no focal deficits. Absent: pronater drift, facial droop, speech deficit - Patient Status Disposition: Home, Self-Care Condition: Fair Functional capacity at discharge: independent ambulation Overall status at discharge: patient is back to baseline - Ambulatory Orders Ambulatory Orders: Basic Metabolic Panel [CHEM] Time Frame: 06/22/18, Facility: [facility], Location: [facility] - Discharge Instructions Follow Up With: Teo Kim MD [Primary Care Provider] - - Diet and Activity Activity: increase activity as tolerated Diet: low fat, low cholesterol, low salt diet
[2018-06-19] MEDS: *HR* HYDROcodone/Acet 5/325 mg TABLET PO PRN (08:08)
[2018-06-19] MEDS: Folic Acid 1 MG TABLET PO SCH (08:08)
[2018-06-19] MEDS: Cholecalciferol (D-3) 1,000 UNIT TABLET PO SCH (08:09)
[2018-06-19] MEDS: (Fish Oil/Dha/Epa [Fish Oil 1,200 Mg Fish Oil] 1 CAP) PO SCH (08:09)
--- NOTE | 2018-06-21 13:50 | Electrocardiograph Report ---
[address] [address] Test Date: 2018-06-17 Pat Name: Francesca Nuñez Department: 113 Room: 3B13 Gender: F Fitness And Wellness Coordinator: [id number] : 1945 Requested By: Amalia Hawkins Order Number: [id number] Reading MD: Sal Nash Measurements Intervals Monitor Rate: 64 P: 117 PA: 260 QRS: 80 QRSD: 117 T: 218 QT: 446 QTc: 455 Interpretive Statements PROBABLE SINUS RHYTHM IVCD ANTEROLATERAL ST-T CHANGES, CONSIDER ISCHEMIA CONSIDER REPEAT ECG DUE TO ARTIFACT Electronically Signed On 06-21-2018 13:49:01 EDT by Sal Nash
--- NOTE | 2018-06-21 14:06 | Electrocardiograph Report ---
[address] [address] Test Date: 2018-06-17 Pat Name: Francesca Nuñez Department: 113 Room: 3B13 Gender: Data Virtualization Consultant: : 1945 Requested By: Be Sandoval Order Number: [id number] Reading MD: Sal Nash Measurements Intervals [place] Rate: 63 P: -62 UT: 361 QRS: 79 QRSD: 122 T: -55 QT: 439 QTc: 445 Interpretive Statements Probable sinus rhythm IVCD Inferior and anteroalteral ST-T changes, consider ischemia Artifact noted Consider repeat ECG Electronically Signed On 06-21-2018 14:04:41 EDT by Sal Nash
== END 2018-06-19 10:30 | disposition home or self-care (01) ==
LOC: 3BNU 13:36 → EMEROOARM 13:36 → 3BNU 17:02
PROVIDERS: ADMIT Internal Medicine Nephrology; ATTEND Internal Medicine Nephrology